=== PATIENT | male | born 2005 | race Caucasian/White ===

== ENCOUNTER → 2023-06-26 | Outpatient (REF) | payer OTHER, SELFPAY | LOC: DHSLP | PROVIDERS: ATTENDING PHYSICIAN Internal Medicine Critical Care Medicine; FAMILY PHYSICIAN Pediatrics | DX: G47.33 Obstructive sleep apnea (adult) (pediatric) (principal) | CPT/HCPCS: 95800 ==

== ENCOUNTER 2023-07-30 12:23 | Emergency (ER) | payer OTHER, SELFPAY ==
[2023-07-30] VITALS (24 sets, daily range): BP systolic 81–189; BP diastolic 41–117; BMI 18.2
[2023-07-30 12:56] LABS: % Basophils 0.5 % (0-2); % Eosinophils 5.6 % (0-6); % Immature Granulocytes 0.4 % (0-0.5); % Lymphocytes 25.9 % (20.5-51.1); % Monocytes 5.8 % (1.7-9.3); % Neutrophils 61.8 % (42.2-75.2); Absolute Eosinophils 0.5 10^3/uL (0-0.7); Absolute Lymphocytes 2.1 10^3/uL (1.2-3.4); Absolute Monocytes 0.5 10^3/uL (0.1-0.6); Absolute Neutrophils 5.1 10^3/uL (1.4-6.5); Hematocrit 35.9 % (39.0-52.0); Hemoglobin 11.6 g/dL (13.0-18.0); Mean Corp Hgb Conc. 32.3 g/dL (33.0-37.0); Mean Corpuscular Hgb 27.2 pg (27.0-31.0); Mean Corpuscular Volume 84.3 fL (80.0-94.0); Mean Platelet Volume 8.1 fL (7.4-10.4); Nucleated Red Blood Cells % 0 % (-); Platelet Count 310 10^3/uL (130-400); Red Blood Cell Count 4.26 10^6/uL (4.70-6.10); Red Cell Dist. Width 18.6 % (11.5-14.5); White Blood Cell Count 8.3 10^3/uL (4.8-10.8)
[2023-07-30 13:17] LABS: ALT (SGPT) 18 U/L (0-50); AST (SGOT) 34 U/L (17-59); Albumin 4.7 g/dl (3.5-5.0); Alkaline Phosphatase 77 U/L (38-126); Blood Urea Nitrogen 15 mg/dl (9-20); Carbon Dioxide 31 mmol/L (22-30); Chloride 96 mmol/L (98-107); Estimated Creatinine Clearance 79 ml/min; Glucose 104 mg/dl (70-99); Potassium 4.5 mmol/L (3.5-5.1); Sodium 136 mmol/L (135-145); Total Bilirubin 0.4 mg/dl (0.2-1.3); Total Protein 8.9 g/dl (6.3-8.2); eGFR > 60.00
[2023-07-30 13:28] LABS: Troponin I < 0.012 ng/ml
[2023-07-30] MEDS: TRANDATE 5 MG IV (13:51)
[2023-07-30] MEDS: ATIVAN 2 MG IV ×2 (14:17→14:20)
--- NOTE | 2023-07-30 14:54 | EDRN ---
14:15 Pt's dad out of room to let staff know pt began seizing, Dr. Yanez at bedside. 14:17 2mg Ativan administered per verbal order. Nonrebreather placed. Pts O2 sating between 72-86%. Pt stopped seizing grunting noted. Dr. Yanez doing jaw
thrust.
14:17 Pt began seizing again
14:20 2mg ativan administered per verbal order from Dr. Yanez
14:21 Pts BP continues to be high. 10mg Labetalol administered per verbal order.
14:40 Set up for intubation. Respiratory at bedside
14:35 50mg propofol administered
14:36 50mg rocuronium administered.
14:37 Pt intubated successfully. 8 tube 22@lip right side + color change
--- NOTE | 2023-07-30 15:00 | ED.GENMED ---
History of Present Illness
General
Chief Complaint: Blood Pressure Problem
Source: patient and family
Exam Limitations: none
Time Seen by Provider: 07/30/23 13:34
Nursing documentation reviewed up to this point in time: agreed with
Travel History
Have you had any contact with someone who has COVID-19?: No
Do you have any symptoms of coronavirus? Fever > 100 degrees, chills, cough, shortness of breath, sore throat, loss of taste or smell, muscle aches, or headache?: No
History of Present Illness
History of Present Illness:
17-year-old male presents emergency department complaining of elevated blood pressure, and sharp pain in his chest. This time he denies any pain. He reports a headache on the top of his head. He denies any blurry vision. He is worried he might
have a seizure. He was seen at his commodity specialist and sent to the emergency department due to his elevated blood.
Past History
Past History
ED Past Medical History: Asthma, GERD, Seizures, Other (sabas dz) and Other
ED Past Surgical History: None
Social History
Tobacco: Non-smoker
Alcohol: None
Drug: None
Personal: Single
Review of Systems
Review of Systems
Allergies reviewed?: Yes
All Other Systems: Not applicable
Constitutional: Reports no symptoms; Denies fever
EENT: Reports no symptoms
Respiratory: Reports no symptoms
Cardiac: Reports no symptoms
ABD/GI: Reports no symptoms
: Reports no symptoms
Musculoskeletal: Reports no symptoms
Skin: Reports no symptoms
Neurological: Reports headache
Endocrine: Reports no symptoms
Hematologic/Lymphatic: Reports no symptoms
Psychiatric: Reports no symptoms
Phy Exam
Physical Exam
Physical Exam:
Physical Exam
General: Appears uncomfortable, blood pressure 185/105
Neck: supple. no meningeal signs. normal posterior pharynx
Heart: s1/s2 regular rate and rhythm, no murmur. equal radial
pulses.
HEENT: Pupils equal round reactive to light, EOMI
Lungs: no acute respiratory distress. clear bilaterally
Abdomen: normal bowel sounds. not tender. no CVAT
Neuro: alert and oriented. no focal neurological deficits cranial nerves II through XII intact
Skin: no rash
Psychiatric: well kept. interactive and cooperative
Extremities: no edema. no calf tenderness. negative homans. good distal pulses
Course
Orders/Labs/Results
Orders:
Orders
07/30/23 12:24
Rocuronium [place] [Rocuronium] 50 mg .ROUTE .STK-MED ONE
07/30/23 12:30
Electrocardiogram (*1) Urgent
Reason for Study: Chest Pain
EKG- Treatment ONCE
07/30/23 12:42
Complete Blood Count/With Diff Urgent
Comprehensive Metabolic Panel Urgent
Troponin I Urgent
07/30/23 13:39
Lorazepam [Ativan] 2 mg .ROUTE .STK-MED ONE
07/30/23 13:46
Labetalol HCl [Trandate] 5 mg IV NOW STA
07/30/23 13:49
CT Head W/o Iv Contrast Urgent
Comment:
Reason For Exam: headache, hypertension
07/30/23 14:17
Lorazepam [Ativan] 2 mg IV NOW STA
07/30/23 14:20
Lorazepam [Ativan] 2 mg .ROUTE .STK-MED ONE
Lorazepam [Ativan] 2 mg IV NOW STA
07/30/23 14:27
Propofol [Diprivan] 20 ml .ROUTE .STK-MED
07/30/23 14:34
Propofol 1,000,000 Mcg/100 ml [Diprivan] 1,000,000 mcg in 100 ml .ROUTE .STK-MED
07/30/23 14:39
Fentanyl Citrate/Pf [Sublimaze] 100 mcg .ROUTE .STK-MED ONE
07/30/23 14:51
CR Chest Portable - 1 View Urgent
Comment:
Reason For Exam: post intubation
Reason Study Needs to be Portable: Patient Unstable
07/30/23 14:59
Keppra (Levetiracetam) [S] Urgent
Abnormal Lab Results
07/30/23
12:42
RBC 4.26 L 10^6/uL
(4.70-6.10)
Hgb 11.6 L g/dL
(13.0-18.0)
Hct 35.9 L %
(39.0-52.0)
MCHC 32.3 L g/dL
(33.0-37.0)
RDW 18.6 H %
(11.5-14.5)
Chloride 96 L mmol/L
(98-107)
Carbon Dioxide 31 H mmol/L
(22-30)
Glucose 104 H mg/dl
(70-99)
Total Protein 8.9 H g/dl
(6.3-8.2)
07/30/23 12:42
07/30/23 12:42
Vital Signs
Initial and Last Documented VS:
Initial Vital Signs
Temp Pulse Resp BP Pulse Ox
98.2 F 77 20 177/102 98
07/30/23 12:26 07/30/23 12:26 07/30/23 12:26 07/30/23 12:26 07/30/23 12:26
Last Documented Vital Signs
Temp Pulse Resp BP Pulse Ox
98.2 F 88 18 151/104 100
07/30/23 12:26 07/30/23 16:00 07/30/23 16:00 07/30/23 16:00 07/30/23 16:00
Procedures
Intubations
Procedure completed by: Renata
Method of Intubation: glidescope
Tube size (cm): 8.0
Placement confirmed by: auscutation, CXR, capnography and direct visualization
Breath sounds after intubation: equal
Intubation complications: no complications
MDM/Problems Addressed
Differential Diagnosis Includes:
Respiratory failure, status epilepticus, intracranial hemorrhage, hypertensive emergency
MDM/Problems Addressed:
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 He was intubated after having 2 seizures in the ED lasting 30 seconds to 1
minute. Postictal he was not protecting his airway. He was intubated without incident, blood pressure did drop to 80/40, improved after IV fluids. Parents present and agree with plan to transfer to [facility]. Call placed to [facility] for transfer.
Chronic conditions affecting care: Neurological disorder (Epilepsy, Alexanders disease)
Acute Exacerbation and/or Progression of Chronic Illness: Neurological disorder (Epilepsy, Alexanders disease)
*Pulse Oximetry
Patient hypoxic: no
*EKG
Interpreted by ED Provider?: Yes
EKG Intrepretation Date: 07/30/23
EKG Intrepretation Time: 12:35
Interpretation: abnormal
Comparison EKG: no comparison EKG present
Heart Rate: 65
Rate: normal
Rhythm: sinus
Braham: normal axis
Interval: normal interval
QRS Pattern: left vent hypertrophy
Ischemia: no ischemia
*Oyster Opener Interpretation
Rate: tachycardiac
Interpretation: abnormal
Heart Rate: 125
Rhythm: sinus tachycardia
*Critical Care Note
Total Time (30-74mins, 75-104mins- exclusive of procedures): 60
comment:
Critical care statement: A total of 60 minutes of critical care time was provided for this patient. This includes management of unstable vital signs, evaluation of the patient at bedside, reviewing the patient's pertinent medical records, discussion
with consultants, review of old EKGs and review of pertinent medical records. This time with separate from time utilized to perform the aforementioned documented procedures
Patient Management
Social determinants of health affecting care: Living situation and Strong social support
Discussion with other providers: Immigration Law Specialist (Pediatrics at PICU at [facility])
Escalation/DeEscalation of care consider admission/obs:
Admit/transfer indicated
ED Attending Note
-
Portions of this chart may have been created with voice recognition software.� Occasional wrong word or��sound alike� substitutions may have occurred due to the inherent limitations of voice recognition software.
Discharge Plan
Departure
Patient Disposition: Pediatric Hospital
Date of Disposition: 07/30/23
Time of Disposition: 15:01
Patient with high blood pressure during this ER visit?: Yes
Condition: Fair
Discharge Problem:
Seizure, Hypertensive emergency, Respiratory failure, Sabas's disease
Prescriptions:
No Action
cholecalciferol (vitamin D3) [Vitamin D3] 25 mcg (1,000 unit) Tablet
25 mcg PO DAILY
multivitamin Tablet
1 tab PO DAILY
sertraline 100 mg tablet
100 mg PO DAILY
Rx Instructions:
taken w/ 50mg + 25mg = 175mg
omeprazole 40 mg capsule,delayed release(DR/EC)
80 mg PO DAILY
ferrous sulfate 325 mg (65 mg iron) Tablet
325 mg PO DAILY
sertraline 25 mg tablet
25 mg PO DAILY
Rx Instructions:
taken w/ 50mg + 100mg = 175mg
sertraline 50 mg tablet
50 mg PO DAILY
Rx Instructions:
taken w/ 100mg + 25mg = 175mg
Gemtesa 75 mg Tablet
75 mg PO DAILY
Vitamin B
1 tab PO DAILY
divalproex 250 mg Tablet,Delayed Release (Dr/Ec)
750 mg PO BID Qty: 120 0RF
Hospital Transfer
Other hospital: [facility]
I certify that the patient requires transfer: Yes
Discussed case with accepting physician: Rudy
Reason for transfer: higher level of care and specialties available
Interventions
Interventions:
*Risk Screen - Suicide Last Done: 07/30/23 12:26
*Neglect/Abuse Screening Last Done: 07/30/23 12:26
ED- Fall Risk Assessment Last Done: 07/30/23 14:05
*ED COVID-19 Vaccine History Last Done: 07/30/23 12:26
*Nursing Disposition Last Done: 07/30/23 16:18
ED- Cardiac Assessment Last Done: 07/30/23 14:05
ED- Neurological Assessment Last Done: 07/30/23 14:05
ED- Pulmonary Assessment Last Done: 07/30/23 14:05
Discharge Date and Time
Discharge Date/Time: 07/30/23 16:24
== END 2023-07-30 16:24 | disposition designated cancer center or children's hospital (05) ==
LOC: EMR 12:23
PROVIDERS: EMERGENCY PHYSICIAN Emergency Medicine
DX: R56.9 Unspecified convulsions (principal); I16.1 Hypertensive emergency; G00-G99 Diseases of the nervous system; J96.90 Respiratory failure, unspecified, unspecified whether with hypoxia or hypercapnia
CPT/HCPCS: 99291; 31500; 96374; 96375; 70450; 71045; 80053; 84484; 85025; 93005

== ENCOUNTER 2023-08-05 06:20 | Outpatient (RCR) | payer OTHER, SELFPAY | END 2023-08-05 23:59 | disposition home or self-care (01) | LOC: ROT 06:20 | PROVIDERS: ATTENDING PHYSICIAN Pediatrics; FAMILY PHYSICIAN Pediatrics | DX: G31.89 Other specified degenerative diseases of nervous system (principal); Z73.6 Limitation of activities due to disability | CPT/HCPCS: 97163; 97167 ==

== ENCOUNTER 2023-09-07 15:14 | Outpatient (RCR) | payer OTHER, SELFPAY | END 2023-09-07 23:59 | disposition home or self-care (01) | LOC: ROT 15:14 | PROVIDERS: ATTENDING PHYSICIAN Pediatrics; FAMILY PHYSICIAN Pediatrics | DX: G00-G99 Diseases of the nervous system (principal); Z73.6 Limitation of activities due to disability | CPT/HCPCS: 97110; 97112; 97140; 97530; 97535 ==

== ENCOUNTER 2023-10-01 15:12 | Outpatient (RCR) | payer OTHER, SELFPAY | END 2023-10-06 10:26 | disposition home or self-care (01) | LOC: ROT 15:12 | PROVIDERS: ATTENDING PHYSICIAN Pediatrics; FAMILY PHYSICIAN Pediatrics | DX: G00-G99 Diseases of the nervous system (principal); Z73.6 Limitation of activities due to disability | CPT/HCPCS: 97010; 97110; 97112; 97530; 97535 ==

== ENCOUNTER → 2023-11-09 14:02 | Outpatient (REF) | payer OTHER, SELFPAY | LOC: HWRAD 14:02 | PROVIDERS: ATTENDING PHYSICIAN Urology; FAMILY PHYSICIAN Pediatrics | DX: N13.70 Vesicoureteral-reflux, unspecified (principal); N31.9 Neuromuscular dysfunction of bladder, unspecified; R33.9 Retention of urine, unspecified; N39.0 Urinary tract infection, site not specified; R27.8 Other lack of coordination | CPT/HCPCS: 76775 ==

== ENCOUNTER 2023-11-27 16:32 | Emergency (ER) | payer OTHER, SELFPAY ==
[2023-11-27 16:34] VITALS: BP 103/63
--- NOTE | 2023-11-27 17:20 | ED.SKININJ ---
HPI-Injury
General
Chief Complaint: Skin Problem
Source: patient and family (Father)
Exam Limitations: none
Time Seen by Provider: 11/27/23 17:19
Nursing documentation reviewed up to this point in time: agreed with
History of Present Illness-Injury
Initial Injury comments:
18-year-old male with history of epilepsy, Alexanders disease, asthma, GERD, daily nicotine/THC vaping, presents with father at bedside for blisters on his feet.
Patient states about 10 days ago he noted a blister on the arch of his right foot, it bubbled up and 2 to 3 days ago as he was crawling on the floor it caught on something and opened up and yellowish fluid drained. Since then the area has dried up
and the skin around it is tough and hardened.
3 days ago a similar blister showed up on the arch of the left foot that has since opened up and drained and is now dried and also has surrounding sick cough and skin.
He also has wounds on the dorsal aspect of the right foot toes 3, 4 and 5. They were initially blisters that opened up.
Patient has Sabas disease and has diminished sensation in his feet so no significant pain. He also states he frequently crawls up and down the steps to strengthen his arms his feet basically dragging behind him. He admits to doing this
frequently without any socks or other protection for his feet.
Past History
Past History
ED Past Medical History: Asthma, GERD, Seizures, Other (sabas dz) and Other
ED Past Surgical History: None
Social History
Tobacco: Non-smoker
Alcohol: None
Drug: None
Personal: Single
Review of Systems
Review of Systems
Allergies reviewed?: Yes
All Other Systems: ROS reviewed and negative except as documented in HPI and ROS
Constitutional: Denies fever
Musculoskeletal: Reports other (Thin lower extremities from muscle wasting.)
Skin: Reports other (Open wound dorsal 3/4/5 toes right foot. Healing blisters with surrounding thickened skin insteps of both feet. Multiple old scabs about the ankles and the feet from crawling. )
Neurological: Reports other (Diminished sensation in both feet from Sabas disease)
Phy Exam
Physical Exam
Physical Exam:
GENERAL: No acute distress. A&Ox3.
CONSTITUTIONAL: Afebrile.
EYES: PERRL, conjunctivae normal
Neck: Supple
ENMT: moist mucus membranes, Pharynx nl
RESPIRATORY: Regular respirations, nonlabored, lungs clear.
CARDIOVASCULAR: Regular rate and rhythm, no murmurs, no rubs.
GI: Soft, nontender, normal BS
MUSCULOSKELETAL: Moves with ease. Well perfused.
SKIN: Warm, dry, pink, left foot with a 2.5 cm healed abrasion on the instep of his foot with surrounding thickened tannish-brown skin. No redness. Right foot toes 3, 4, 5 have deep clean abrasions on the dorsal aspects from broken blisters, there
is no significant swelling, the toes have normal color and brisk capillary refill. There is no surrounding redness or warmth. The instep of the right foot, similar to the instep of the left foot but not as large an area has thickened darker
discolored skin surrounding a well-healed blister. There are numerous small well-healed black scabs about the ankles and the from his crawling.
PSYCH: Normal mood and affect. Well kept, interactive and appropriate
NEUROLOGIC: Awake, alert and oriented. No focal neurological deficits
Course
Vital Signs
Initial and Last Documented VS:
Initial Vital Signs
Temp Pulse Resp BP Pulse Ox
98.9 F 127 16 103/63 96
11/27/23 16:34 11/27/23 16:34 11/27/23 16:34 11/27/23 16:34 11/27/23 16:34
Last Documented Vital Signs
Temp Pulse Resp BP Pulse Ox
98.9 F 127 16 103/63 96
11/27/23 16:34 11/27/23 16:34 11/27/23 16:34 11/27/23 16:34 11/27/23 16:34
MDM/Problems Addressed
Differential Diagnosis Includes:
blisters, abrasions from shearing injury
Cellulitis
MDM/Problems Addressed:
18-year-old male with history of epilepsy, Alexanders disease, asthma, GERD, daily nicotine/THC vaping, presents with father at bedside for blisters on his feet.
Patient states about 10 days ago he noted a blister on the arch of his right foot, it bubbled up and 2 to 3 days ago as he was crawling on the floor it caught on something and opened up and yellowish fluid drained. Since then the area has dried up
and the skin around it is tough and hardened.
3 days ago a similar blister showed up on the arch of the left foot that has since opened up and drained and is now dried and also has surrounding sick cough and skin.
He also has wounds on the dorsal aspect of the right foot toes 3, 4 and 5. They were initially blisters that opened up.
Patient has Sabas disease and has diminished sensation in his feet so no significant pain. He also states he frequently crawls up and down the steps to strengthen his arms his feet basically dragging behind him. He admits to doing this
frequently without any socks or other protection for his feet.
The wounds on his toes are consistent with blisters and abrasions from shearing as he crawls on the floor. Wound care reviewed for these.
The insteps are consistent with lichenified skin surrounding old abrasions/blisters
Pt is at risk for skin damage of lower extremities, specifically feet and ankles as they drag along the floor when he crawls, especially in bare feet.
Wounds cleansed, ATB ointment, nonstick and gauze dressings applied
No cellulitis. No indication for antibiotics at this time.
Wound care discussed. Will f/u with PCP if not much improved in next 2 weeks
Reviewed return symptoms. Stressed skin protection of feet and ankles with crawling
Dad and pt comfortable with this
*Critical Care Note
Total Time (30-74mins, 75-104mins- exclusive of procedures): Not Applicable
ED Attending Note
-
Portions of this chart may have been created with voice recognition software.� Occasional wrong word or��sound alike� substitutions may have occurred due to the inherent limitations of voice recognition software.
Discharge Plan
Departure
Patient Disposition: Home (Routine Discharge)
Date of Disposition: 11/27/23
Time of Disposition: 18:17
Patient with high blood pressure during this ER visit?: No
Condition: Good
Discharge Problem:
Abrasion of multiple toes, Lichen planus
Instructions: Wound Care (DC), Lichen sclerosus, Abrasions ED
Prescriptions:
No Action
cholecalciferol (vitamin D3) [Vitamin D3] 25 mcg (1,000 unit) Tablet
25 mcg PO DAILY
multivitamin Tablet
1 tab PO DAILY
sertraline 100 mg tablet
100 mg PO DAILY
Rx Instructions:
taken w/ 50mg + 25mg = 175mg
omeprazole 40 mg capsule,delayed release(DR/EC)
80 mg PO DAILY
ferrous sulfate 325 mg (65 mg iron) Tablet
325 mg PO DAILY
sertraline 25 mg tablet
25 mg PO DAILY
Rx Instructions:
taken w/ 50mg + 100mg = 175mg
sertraline 50 mg tablet
50 mg PO DAILY
Rx Instructions:
taken w/ 100mg + 25mg = 175mg
Gemtesa 75 mg Tablet
75 mg PO DAILY
Vitamin B
1 tab PO DAILY
divalproex 250 mg Tablet,Delayed Release (Dr/Ec)
750 mg PO BID Qty: 120 0RF
Referrals:
Piter Rosales DO [Family Provider] - As needed
Sarah Dominguez MD [Consulting Staff] - As needed
Activity Restrictions/Additional Instructions:
As we discussed, the toe wounds seem to be from crawling and scraping/shearing the skin on the top of your toes causing blisters, then blisters breaking.
cleanse the wounds daily with soap and water, allow to dry well. Apply antibiotic ointment, non stick dressings and gauze wrap. Do this daily until well healed (about 2-3 weeks).
Avoid crawling on floors for 2-3 weeks then ONLY with protective socks, shoes, slippers or other covering.
The thickened skin on the insteps of your feet may take weeks/months to resolve or may become chronic.
See your monotype keyboard operator if areas do not continue to improve with above care.
Seek medical care if the areas look like they are becoming infected such as becoming red, more swollen, more painful, red streaks up the foot or you develop fever or feeling sicker in any way.
Interventions
Interventions:
*Risk Screen - Suicide Last Done: 11/27/23 17:04
*General Assessment Last Done: 11/27/23 16:34
*Neglect/Abuse Screening Last Done: 11/27/23 17:04
ED- Fall Risk Assessment Last Done: 11/27/23 17:04
*ED COVID-19 Vaccine History Last Done: 11/27/23 16:34
*Nursing Disposition Last Done: 11/27/23 18:39
ED-Skin Assessment Last Done: 11/27/23 17:04
Discharge Date and Time
Discharge Date/Time: 11/27/23 19:02
Print Language: PAKISTANI
== END 2023-11-27 19:02 | disposition home or self-care (01) ==
LOC: EMR 16:32
PROVIDERS: EMERGENCY PHYSICIAN Emergency Medicine; FAMILY PHYSICIAN Pediatrics
DX: L43.9 Lichen planus, unspecified (principal); S90.414A Abrasion, right lesser toe(s), initial encounter; X58.XXXA Exposure to other specified factors, initial encounter; G00-G99 Diseases of the nervous system; G40.909 Epilepsy, unspecified, not intractable, without status epilepticus; J45.909 Unspecified asthma, uncomplicated; K21.9 Gastro-esophageal reflux disease without esophagitis
CPT/HCPCS: 99282

== ENCOUNTER → 2024-02-01 15:50 | Outpatient (REF) | payer OTHER, SELFPAY | LOC: RAD 15:50 | PROVIDERS: ATTENDING PHYSICIAN Internal Medicine; FAMILY PHYSICIAN Pediatrics | DX: K59.02 Outlet dysfunction constipation (principal); R10.84 Generalized abdominal pain | CPT/HCPCS: 74019 ==

== ENCOUNTER 2024-03-09 11:56 | Outpatient (RCR) | payer OTHER, SELFPAY | END 2024-03-09 23:59 | disposition home or self-care (01) | LOC: RPT 11:56 | PROVIDERS: ATTENDING PHYSICIAN Internal Medicine; FAMILY PHYSICIAN Pediatrics | DX: K59.02 Outlet dysfunction constipation (principal); M62.838 Other muscle spasm; Z73.6 Limitation of activities due to disability | CPT/HCPCS: 97140; 97163; 97530 ==

== ENCOUNTER 2024-03-11 12:52 | Outpatient (RCR) | payer OTHER, SELFPAY | END 2024-03-11 23:59 | disposition home or self-care (01) | LOC: RPT 12:52 | PROVIDERS: ATTENDING PHYSICIAN Internal Medicine; FAMILY PHYSICIAN Pediatrics | DX: K59.02 Outlet dysfunction constipation (principal); M62.838 Other muscle spasm; Z73.6 Limitation of activities due to disability | CPT/HCPCS: 97014; 97112; 97140; 97530 ==

== ENCOUNTER 2024-05-02 13:56 | Outpatient (RCR) | payer OTHER, SELFPAY | END 2024-05-05 15:48 | disposition home or self-care (01) | LOC: RPT 13:56 | PROVIDERS: ATTENDING PHYSICIAN Internal Medicine; FAMILY PHYSICIAN Pediatrics | DX: K59.02 Outlet dysfunction constipation (principal); M62.838 Other muscle spasm; Z73.6 Limitation of activities due to disability | CPT/HCPCS: 97014; 97112; 97140; 97530 ==

== ENCOUNTER → 2024-05-24 14:45 | Outpatient (REF) | payer OTHER, SELFPAY | LOC: RAD 14:45 | PROVIDERS: FAMILY PHYSICIAN Pediatrics | DX: M41.44 Neuromuscular scoliosis, thoracic region (principal); M40.04 Postural kyphosis, thoracic region | CPT/HCPCS: 72082 ==

== ENCOUNTER 2024-07-06 13:09 | Outpatient (RCR) | payer OTHER, SELFPAY | END 2024-07-06 23:59 | disposition home or self-care (01) | LOC: RPT 13:09 | PROVIDERS: ATTENDING PHYSICIAN Pediatrics; FAMILY PHYSICIAN Pediatrics | DX: G00-G99 Diseases of the nervous system (principal); Z73.6 Limitation of activities due to disability; R29.818 Other symptoms and signs involving the nervous system; R26.89 Other abnormalities of gait and mobility; M25.552 Pain in left hip | CPT/HCPCS: 97010; 97110; 97112; 97140; 97163; 97167; 97530; 97535 ==

== ENCOUNTER 2024-08-08 13:07 | Outpatient (RCR) | payer OTHER, SELFPAY | END 2024-08-08 23:59 | disposition home or self-care (01) | LOC: RPT 13:07 | PROVIDERS: ATTENDING PHYSICIAN Pediatrics; FAMILY PHYSICIAN Pediatrics | DX: G00-G99 Diseases of the nervous system (principal); R29.818 Other symptoms and signs involving the nervous system; Z73.6 Limitation of activities due to disability; R26.89 Other abnormalities of gait and mobility; M25.552 Pain in left hip | CPT/HCPCS: 97110; 97112; 97140; 97530; 97535 ==

== ENCOUNTER 2024-08-19 13:02 | Outpatient (RCR) | payer OTHER, SELFPAY | END 2024-08-26 08:03 | disposition home or self-care (01) | LOC: RPT 13:02 | PROVIDERS: ATTENDING PHYSICIAN Pediatrics; FAMILY PHYSICIAN Pediatrics | DX: G00-G99 Diseases of the nervous system (principal); R29.818 Other symptoms and signs involving the nervous system; R26.89 Other abnormalities of gait and mobility; M25.552 Pain in left hip; Z73.6 Limitation of activities due to disability | CPT/HCPCS: 97110; 97112; 97140; 97530; 97535 ==

== ENCOUNTER → 2024-08-22 12:29 | Outpatient (REF) | payer OTHER, SELFPAY | LOC: WOUND 12:29 | PROVIDERS: ATTENDING PHYSICIAN Surgery | DX: T24.231A Burn of second degree of right lower leg, initial encounter (principal); G00-G99 Diseases of the nervous system; X11.0XXA Contact with hot water in bath or tub, initial encounter; Y93.E1 Activity, personal bathing and showering | CPT/HCPCS: 99203 ==

== ENCOUNTER → 2024-08-30 10:46 | Outpatient (REF) | payer OTHER, SELFPAY | LOC: WOUND 10:46 | PROVIDERS: ATTENDING PHYSICIAN Surgery | DX: T24.231A Burn of second degree of right lower leg, initial encounter (principal); G00-G99 Diseases of the nervous system; X11.0XXA Contact with hot water in bath or tub, initial encounter; Y93.E1 Activity, personal bathing and showering | CPT/HCPCS: 99213 ==

== ENCOUNTER 2024-09-06 14:54 | Inpatient (IN) | payer OTHER, SELFPAY ==
[2024-09-06] VITALS (28 sets, daily range): BP systolic 100–131; BP diastolic 58–87; PULSE 133; BMI 21.4
--- NOTE | 2024-09-06 10:47 | ED.GENMED ---
History of Present Illness
General
Chief Complaint: Seizure
Time Seen by Provider: 09/06/24 10:46
History of Present Illness
History of Present Illness:
TIME OF INITIAL ENCOUNTER: 10:51am
HPI:
The patient was diagnosed with Sabas disease around age 12. He used to be in college but had to drop out. He has now primarily in a wheelchair. Yesterday, he had a procedure at [facility] related to subluxation of the left hip. The procedure went
well and there were no complications yesterday. However, today, the patient had a presumed seizure as the patient was found to be in a postictal state by family. He came in here by ambulance. He has also found to be hypoxic with sats of 78% with
a good waveform. Today, he also had coffee-ground emesis.
EXAM:
GENERAL: The patient appears somewhat generally weak
HEENT: Moist oral mucosa
CARDIOVASCULAR: No murmurs, normal heart rate, regular rhythm, No chest wall tenderness
PULMONARY: No respiratory distress, breath sounds are clear and equal
ABDOMEN: Soft with no peritoneal signs, no tenderness
NEUROLOGIC: Decreased strength all extremities, no coordination deficits
PSYCHIATRIC: Appropriate mental status, normal insight and judgement, appears to slightly postictal
EXTREMITIES: Decreased active range of motion of both lower extremities which is chronic
SKIN: No rash, no lesions
NUMBER AND COMPLEXITY OF PROBLEMS ADDRESSED AT THE ENCOUNTER
� Chronic conditions affecting care: Alexanders disease, seizures
� Acute Exacerbation and/or Progression of Chronic Illness: This is an acute problem
� Differential Diagnosis includes: Breakthrough seizure, upper GI bleed, anemia, aspiration pneumonitis, aspiration pneumonia
AMOUNT AND/OR COMPLEXITY OF DATA TO BE REVIEWED AND ANALYZED
� I performed an independent evaluation of and my interpretation is:
EKG: Sinus 127, sinus arrhythmia,
CT:
X-rays: Chest x-ray shows severe scoliosis similar to image from July 2023, no evidence of pneumonia
Laboratory Studies: White count 15.2, hemoglobin 15.0, Cr 1.6, K 6.1
Other:
� Review of other/old records: I reviewed OT records related to Sabas disease
� Clinical information was obtained by an independent historian: I spoke to the father at bedside
� Prescriptions/Medications Considered but not given:
� Further testing considered but not performed:
RISK OF COMPLICATIONS AND/OR MORBIDITY OR MORTALITY OF PATIENT MANAGEMENT
� Social determinants of health affecting care: No longer attends college, resides at home with family
� Discussion with other providers: Hospitalist, Dr. Diaz for admission
� Escalation of care including admission/observation vs risk of discharge considered:
PROBLEM LIST:
#1 Sabas disease with breakthrough seizure. This is the first seizure in about a year. He states that he is now taking Lamictal 150 mg twice daily. Call placed to his neurologist, Dr. She Decker. He did not take his Lamictal yet today. I
have ordered Lamictal 150 mg orally.
#2 Hypoxia�this could be related to aspiration pneumonitis. His room air sats were as low as 78% and initially he had periods where he was less responsive but currently as of 11:10 AM, is awake and alert. No sign of pneumonia on imaging.
#3 Persistent tachycardia�he was given IV fluids EKG otherwise unremarkable
#4 Presumed upper GI bleed given the report of coffee-ground emesis, patient has briskly heme positive stool�I have ordered Protonix IV
#5 KAVYA w/ Cr 1.6, added CK and gave additional liter of saline w/ K of 6.1
ANY OTHER UPDATES:
Past History
Past History
ED Past Medical History: Asthma, GERD, Seizures, Other (sabas dz) and Other
ED Past Surgical History: None
Social History
Tobacco: Non-smoker
Alcohol: None
Drug: None
Personal: Single
Phy Exam
Physical Exam
Physical Exam:
See HPI
Course
Orders/Labs/Results
Orders:
Orders
09/06/24 10:56
Portable Chest Xray [CR Chest Portable - 1 View] Urgent
Comment:
Reason For Exam: seizure, hypoxia
Reason Study Needs to be Portable: Patient Unstable
09/06/24 10:57
EKG [Electrocardiogram (*1)] Urgent
Reason for Study: Tachycardia
EKG- Treatment ONCE
09/06/24 11:00
Complete Blood Count/With Diff Urgent
Comprehensive Metabolic Panel Urgent
Creatine Phosphokinase Urgent
Comment: ADD ON
09/06/24 11:02
0.9% Sodium Chloride 1000 ml [Nss] 1,000 ml IV BOLUS
Lamotrigine [Lamictal] 150 mg PO NOW STA
09/06/24 11:09
Pantoprazole [Protonix IV] 80 mg IV NOW STA
09/06/24 11:38
Add On- LAB Urgent
Tests Added?: CK
Sodium Zirconium Cyclosilicate [Lokelma] 10 gram PO NOW STA
09/06/24 11:48
Type And Crossmatch [Type+Screen] Urgent
0.9% Sodium Chloride 1000 ml [Nss] 1,000 ml IV BOLUS
09/06/24 11:56
ABO2 Urgent
BBK Wristband Number:
Associate notified that ABO2 has been ordered: [id number]
Date: 09/06/24
Time: 11:56
Developmental Training Counselor ID: [id number]
09/06/24 12:01
Urinalysis Reflex To Culture Urgent
09/06/24 12:06
Lactic Acid Q4H
Comment: CANCEL 2nd LACTIC ACID IF 1st LACTIC ACID IS LESS THAN 2
Blood Culture Q30M
JESSICA Source: Blood/Venous
Specimen Description:
09/06/24 12:12
Blood Culture Q30M
JESSICA Source: Blood/Venous
Specimen Description:
09/06/24 13:48
NEUROLOGY CONSULT Routine
Consulting Provider: Ash Chery
Was physician already notified: Yes
Reason for consult: acute seizure activity
09/06/24 13:49
GASTROINTESTINAL CONSULT Routine
Consulting Provider: Brandan Boyle
Was physician already notified: Yes
Reason for consult: coffee ground emesis
09/06/24 13:50
0.9% Sodium Chloride 1000 ml [Nss] 1,000 ml IV BOLUS
09/06/24 13:51
Admit/Transfer Patient As Directed
Co-Sign Provider:
Level of Care: Inpatient admission
Assign to:: IMU- Intermediate Care
Physician / Group: Joe
Diagnosis: acute seizure activity, UGIB
Reason for Hospitalization: acute seizure activity, UGIB
Expected length of stay greater than two midnights?: Yes
ELOS- Estimated Length of Stay in days: 3
I certify the patient meets the requirements for IP care: Yes
PRN Pain Medication Management As Directed
May give lesser potent ordered pain med per pt: Yes
preference::
Protocol:: Medication orders for pain may be administered in a
manner that supports deferring to patient preference
when the pt is:
- Requesting an ordered lesser potent pain medication.
Least to most potent pain medications are defined
as: acetaminophen < NSAID < tramadol < opioids
(morphine, oxycodone, hydromorphone).
- Requesting a lesser dose of the same medication IF
ORDERED.
- Requesting a less intrusive route of administration
if both routes are prescribed by the provider (PO <
IV).
09/06/24 13:54
Code Status As Directed
Resuscitation Status: Full Code
09/06/24 14:10
EEG Routine Urgent
Reason for Exam: seizure
09/06/24 14:12
Add On- LAB Routine
Tests Added?: lamotrigine level
09/06/24 Dinner
NPO
Allow oral meds: Yes
Allow clear liquids: Sips of Clears
NPO with Ice Chips: No
0.9% Sodium Chloride 1000 ml [Nss] 1,000 ml IV 120 mls/hr
Pantoprazole 80 mg/100 ml Nss [Protonix] 80 mg in 100 ml IV Q10H
Abnormal Lab Results
09/06/24
11:00
WBC 15.2 H 10^3/uL
(4.8-10.8)
MCV 95.2 H fL
(80.0-94.0)
MCHC 31.3 L g/dL
(33.0-37.0)
Abs Immat Gran (auto) 0.1 H 10^3/uL
(0-0.05)
Absolute Neuts (auto) 12.3 H 10^3/uL
(1.4-6.5)
Absolute Lymphs (auto) 0.8 L 10^3/uL
(1.2-3.4)
Absolute Monos (auto) 1.9 H 10^3/uL
(0.1-0.6)
Immature Gran % 0.6 H %
(0-0.5)
Neutrophils % 81.3 H %
(42.2-75.2)
Lymphocytes % 5.2 L %
(20.5-51.1)
Monocytes % 12.6 H %
(1.7-9.3)
Potassium 6.1 H* mmol/L
(3.5-5.1)
Carbon Dioxide 34 H mmol/L
(22-30)
BUN 45 H mg/dl
(9-20)
Creatinine 1.6 H mg/dL
(0.7-1.3)
Creatine Kinase 43 L U/L
(55-170)
09/06/24 11:00
09/06/24 11:00
Vital Signs
Initial and Last Documented VS:
Initial Vital Signs
Pulse Pulse Ox
130 78
09/06/24 10:43 09/06/24 10:43
Last Documented Vital Signs
Temp Pulse Resp BP Pulse Ox
36.8 C 119 13 124/74 96
09/06/24 11:12 09/06/24 15:30 09/06/24 15:30 09/06/24 15:20 09/06/24 15:30
*Critical Care Note
Total Time (30-74mins, 75-104mins- exclusive of procedures): Not Applicable
ED Attending Note
-
Portions of this chart may have been created with voice recognition software.� Occasional wrong word or��sound alike� substitutions may have occurred due to the inherent limitations of voice recognition software.
Discharge Plan
Departure
Patient Disposition: Admit
Date of Disposition: 09/06/24
Time of Disposition: 13:47
Presentation/result/management discussed w/ accepting MD/DO: Hospitalist
Discharge Problem:
KAVYA (acute kidney injury)
Interventions
Interventions:
*Risk Screen - Suicide Last Done: 09/06/24 11:12
*General Assessment Last Done: 09/06/24 11:12
*Neglect/Abuse Screening Last Done: 09/06/24 11:39
*ED- Fall Risk Assessment Last Done: 09/06/24 11:39
*ED COVID-19 Vaccine History Last Done: 09/06/24 11:39
ED- Cardiac Assessment Last Done: 09/06/24 11:39
ED- Neurological Assessment Last Done: 09/06/24 11:39
ED- Pulmonary Assessment Last Done: 09/06/24 11:39
[2024-09-06 11:15] LABS: % Basophils 0.3 % (0-2); % Immature Granulocytes 0.6 % (0-0.5); % Lymphocytes 5.2 % (20.5-51.1); % Monocytes 12.6 % (1.7-9.3); % Neutrophils 81.3 % (42.2-75.2); Absolute Immature Granulocytes 0.1 10^3/uL (0-0.05); Absolute Lymphocytes 0.8 10^3/uL (1.2-3.4); Absolute Monocytes 1.9 10^3/uL (0.1-0.6); Absolute Neutrophils 12.3 10^3/uL (1.4-6.5); Mean Corp Hgb Conc. 31.3 g/dL (33.0-37.0); Mean Corpuscular Hgb 29.8 pg (27.0-31.0); Mean Corpuscular Volume 95.2 fL (80.0-94.0); Mean Platelet Volume 8.5 fL (7.4-10.4); Nucleated Red Blood Cells % 0 % (-); Platelet Count 228 10^3/uL (130-400); Red Blood Cell Count 5.04 10^6/uL (4.70-6.10); White Blood Cell Count 15.2 10^3/uL (4.8-10.8)
[2024-09-06] MEDS: NSS 1000 IV ×3 (11:30→18:01)
[2024-09-06] MEDS: PROTONIX IV 80 MG IV (11:30)
[2024-09-06 11:38] LABS: ALT (SGPT) 20 U/L (0-50); AST (SGOT) 22 U/L (17-59); Albumin 3.9 g/dl (3.5-5.0); Alkaline Phosphatase 125 U/L (38-126); Blood Urea Nitrogen 45 mg/dl (9-20); Calcium 9.1 mg/dl (8.4-10.2); Carbon Dioxide 34 mmol/L (22-30); Chloride 98 mmol/L (98-107); Estimated Creatinine Clearance 72 ml/min; Glucose 98 mg/dl (70-99); Potassium 6.1 mmol/L (3.5-5.1); Sodium 143 mmol/L (135-145); Total Bilirubin 0.7 mg/dl (0.2-1.3); Total Protein 7.2 g/dl (6.3-8.2); eGFR > 60.00
[2024-09-06] MEDS: LAMICTAL 150 MG PO (11:44)
[2024-09-06] MEDS: LOKELMA 10 GRAM PO (11:46)
[2024-09-06 12:40] LABS: Lactic Acid 1.2 mmol/L (0.7-2.0)
[2024-09-06 13:10] LABS: Creatine Phosphokinase 43 U/L (55-170)
--- NOTE | 2024-09-06 13:57 | CON.NEURO ---
Addendum entered and electronically signed by Ash Chery MD 09/07/24 11:37:
Studies reviewed.
I have personally examined the patient. I reviewed and agree with the EXECUTIVE COMMUNICATIONS MANAGER's Note.
My addenda:
Awake, interactive. No acute distress.
Speech mildly dysarthric.
Follows 2-step requests w/o difficulty. No tremor.
Extra-ocular movements with nystagmus in all directions but not in primary gaze
Facial movements full and symmetric. Hearing intact to normal conversational volume.
Spontaneously moves upper extremities without issue, minimal ability to lift lower extremities off bed bilaterally slightly worse on the right than left with increased tone diffusely in lower extremities.
Neck: full ROM.
Chest: no dyspnea
Heart: no JVD
Ext: (-) Clubbing, (-) Cyanosis, (-) Edema
IMPRESSIONS/RECOMMENDATIONS:
Abrupt onset of recurrent change in mental status with a prior history of both Sabas disease and recurrent seizures usually followed by [facility]
Advance lamotrigine from 150 mg twice a day to dosing of 200 mg twice a day
Workup for metabolic etiologies for the patient's symptomatology
Seizure precautions
Consider alternative medication for the use of baclofen to reduce spasticity
Check lamotrigine level
D/W patient / family
Will continue to follow pending results.
Original Note:
Documented by User: Claudia Kennedy NP 09/06/24 14:54
Neuro Assessment/Plan
Assessment
The patient is a 18 year old male with PMH significant for Sabas Disease/leukodystrophy and Epilepsy who presents to ED on 09/06/2024 in the setting of breakthrough seizure.
Plan
Impression
1. Epilepsy with breakthrough seizure in the setting of metabolic disturbance
2. Sabas's disease/leukodystrophy
3. KAVYA with hyperkalemia
-Obtain Lamotrigine level
-Increase Lamotrigine to 200 mg twice daily
-Seizure precautions
-Follow up with Neurologist Dr. Decker outpatient
-All questions encouraged and answered
-Plan reviewed with patient and family
Consultation
Order
Date of Consultation: 09/06/24
Requesting Provider: Dr. Veto Diaz
Reason for Consult: breakthrough seizure
Subjective/Objective
Subjective Data
Date of Service: September 06, 2024
History of Present Illness:
The patient is a 18 year old male with PMH significant for Sabas Disease/leukodystrophy and Epilepsy who presents to ED on 09/06/2024 in the setting of breakthrough seizure. The patient was diagnosed with Sabas disease around age 12. He
has now primarily in a wheelchair and does participate in PT/OT. Yesterday, he had a procedure at [facility] related to subluxation of the left hip. The procedure went well and there were no complications yesterday. Last night before bedtime per mother
was seemingly normal. At 9 am this morning his mother could not arouse him and he was found to be incontinent of bowels with brown emesis on sheets. There was no tongue/cheek laceration. He was back to baseline at 10 am. On arrival to ED, was found
to be hypoxic with sats of 78% with a good waveform. Patient is currently awake, alert and oriented. Prior antiepileptic medications include Depakote and Keppra which were discontinued due to side effects. He is currently taking Lamotrigine 150 mg
twice daily. He states his last seizure occurred 1 year ago. Usual seizure presentation with generalized tonic-clonic movement. He follows with Dr. Decker. He denies recent illness or infection, states he is compliant with his medications. Denies
issues with sleep.
Objective Data
Vital Signs
Temp Pulse Resp BP Pulse Ox
98.3 F 133 14 116/70 97
09/06/24 11:12 09/06/24 11:12 09/06/24 11:12 09/06/24 11:12 09/06/24 11:39
Lab Results
09/06/24 11:00
09/06/24 11:00
Sodium 143 mmol/L (135-145) 09/06/24 11:00
Potassium 6.1 mmol/L (3.5-5.1) H* 09/06/24 11:00
BUN 45 mg/dl (9-20) H 09/06/24 11:00
Glucose 98 mg/dl (70-99) 09/06/24 11:00
Calcium 9.1 mg/dl (8.4-10.2) 09/06/24 11:00
Patient Allergies
cat dander Allergy (Verified 09/06/24 11:12)
Unknown
dog dander Allergy (Verified 09/06/24 11:12)
Unknown
grass pollen Allergy (Verified 09/06/24 11:12)
Unknown
horse dander Allergy (Verified 09/06/24 11:12)
Unknown
tree and shrub pollen Allergy (Verified 09/06/24 11:12)
Unknown
Review of Systems
-
History Source: Patient and Family
Constitutional: No Symptoms
EENT: No Symptoms Reported
Respiratory: No Symptoms
Cardiac: No Symptoms
Abdomen/GI: Incontinence of Stool
Genitourinary: No Symptoms
Musculoskeletal: No Symptoms
Neuro: No Symptoms
Physical Exam
-
General: No Apparent Distress and Comfortable
HEENT: Normocephalic and Atraumatic
Neck: Full Range of Motion
Respiratory: Other (on O2)
Cardiac: No JVD
Extremities: No Clubbing, No Cyanosis and No Edema
Psych: Intact Judgement/Insight
Extended Neurological Exam
Mood & Affect: Mood Unremarkable
Attention Span & Concentration: Awake, Alert, Interactive and No Difficulty with 2 Step Request
Memory: Able to Recall
Tremor: Hand Tremor Absent
Speech: Dysarthric
Cranial Nerve II: Left Eye: Visual Shrestha Intact
Cranial Nerve II: Right Eye: Visual Shrestha Intact
Cranial Nerves III, IV, : Extraocular Movement: Nystagmus with Extreme Gaze to Left
Cranial Nerve V: Facial Sensation: Facial Sensation Unremarkable to Cold
Cranial Nerve VII: Facial Symmetry: Normal Facial Symmetry
Cranial Nerve VIII: Hearing: Unremarkable Hearing to Normal Conversational Volume
Cranial Nerves IX, X: Palate Movement: Palate Elevation Symmetric
Cranial Nerve XII: Tongue Protusion: Midline
Muscle Strength, Overall: Reduced Bilaterally (to lower extremities)
Muscle Bulk & Tone: Increased Tone (lower extremities)
Pronator Drift: No Drift in Upper Extremities
Deep Tendon Reflexes: Absent Throughout
Cold Sensation: Reduced Moderately Distally (lower extremities)
Vibration Sensation: Unremarkable
Coordination: [id number] Testing Unremarkable
Gait & Station: Other (deferred)
Medications
-
Active Medications
Generic Name Dose Route Start Last Admin
Trade Name Freq PRN Reason Stop Dose Admin
Sodium Chloride 1,000 mls @ 1,000 mls/hr 09/06/24 13:50
Nss IV 09/06/24 14:49
BOLUS ONE
Home Medications
�Medication �Instructions �Recorded
cholecalciferol (vitamin D3) 25 25 mcg PO DAILY Supplement 11/11/20
mcg (1,000 unit) tablet (Vitamin
D3)
ferrous sulfate 325 mg (65 mg 325 mg PO DAILY Supplement 02/26/23
iron) tablet
omeprazole 40 mg capsule,delayed 80 mg PO DAILY GERD 02/26/23
release
vibegron 75 mg tablet (Gemtesa) 75 mg PO DAILY OVERACTIVE BLADDER 02/26/23
vitamin B complex 1 tab PO DAILY Supplement ##0 02/26/23
ascorbic acid (vitamin C) 500 mg 500 mg PO DAILY 09/06/24
tablet (Vitamin C)
cranberry extract 200 mg capsule 72 mg PO DAILY 09/06/24
(Ellura)
fluticasone propionate 50 1 spray intranasal DAILYPRN PRN 09/06/24
mcg/actuation nasal allergies
spray,suspension
inulin 1.7 gram chewable tablet 1.7 g PO DAILY 09/06/24
(Fiber Gummies)
lamotrigine 150 mg tablet 150 mg PO BID 09/06/24
(Lamictal)
methenamine hippurate 1 gram tablet 1 g PO BID 09/06/24
mirtazapine 15 mg tablet 30 mg PO HS 09/06/24
multivitamin with minerals-folic 1 tab PO DAILY 09/06/24
acid 80 mcg chewable tablet
nicotine (polacrilex) 2 mg buccal 2 mg buccal Q2HPRN PRN stop smoking 09/06/24
lozenge
Past History
Past History
ED Past Medical History: Asthma, GERD, Seizures, Other (sabas dz) and Other
ED Past Surgical History: None
Family/Social History
Tobacco: Non-smoker
Alcohol: None
Drug: None
Personal: Single

Documented by User: Ash Chery MD 09/06/24 15:06
Subjective/Objective
Subjective Data
Date of Service: September 06, 2024
History of Present Illness:
The patient is a 18 year old male with PMH significant for Sabas Disease/leukodystrophy and Epilepsy who presents to ED on 09/06/2024 in the setting of breakthrough seizure. The patient was diagnosed with Sabas disease around age 12. He
has now primarily in a wheelchair and does participate in PT/OT. Yesterday, he had a procedure at [facility] related to subluxation of the left hip. The procedure went well and there were no complications yesterday. Last night before bedtime per mother
was seemingly normal.
At 9 am this morning his mother could not arouse him and he was found to be incontinent of bowels with brown emesis on sheets. There was no tongue/cheek laceration. He routinely self catheterizes and therefore there is no bladder dysfunction at the
time of the incident. He was back to baseline at 10 am.
On arrival to ED, was found to be hypoxic with sats of 78% with a good waveform.
Prior antiepileptic medications include Depakote and Keppra which were discontinued due to side effects. He states his last seizure occurred 1 year ago. Usual seizure presentation with generalized tonic-clonic movements and at times have been
associated with atypical events including procedures. He follows with Dr. Decker, a pediatric neurologist at [facility]. He denies recent illness or infection, states he is compliant with his medications. Denies issues with
sleep.
Physical Exam
-
General: Wearing Oxygen
Extended Neurological Exam
Memory: Reduced (For correct prior holiday order)
Cranial Nerve II: Left Eye: Pupillary Size Unremarkable
Cranial Nerve II: Right Eye: Pupillary Size Unremarkable
Cranial Nerves III, IV, : Extraocular Movement: Nystagmus with Extreme Gaze to Left and Nystagmus with Extreme Gaze to Right
Cranial Nerve V: Facial Sensation: Facial Sensation Unremarkable to Cold
Data Reviewed
-
Labs: Ordered
Reviewed with: Physician, Patient and Family
Old Records: Summarized
--- NOTE | 2024-09-06 14:01 | W.PN.UPDATE ---
Addendum entered and electronically signed by Veto Diaz MD 09/06/24 14:22:
KAVYA with hyperkalemia:
-aggressive IVFs
-trend Cr/K (next lab draw 1700)
Original Note:
Update Note
Progress Note Update
I personally performed a history and physical exam of the patient and discussed management with the resident. I reviewed the resident's note and agree with the documented findings and plan of care HPI/CC.
18-year-old male who presents with a chief complaint of seizure activity. Yesterday the patient was seen at [facility] for left hip subluxation. Afterwards he was in his usual state of health. This morning his mother tried to wake him up but he was
unresponsive. His eyelids were fluttering. She noticed bright red blood and coffee-ground emesis on his shoulder. He slowly came to and was postictal. He was brought to the ER for this reason. He has not missed any of his home medications.
ER tx: 2L NS, Protonix 80mg IV x 1, 10g Lokelma
116/70, 133, 14, 90.3 �F, 97% 2L NC O2 (was 73% RA)
Gen: NAD, Awake and alert, appears chronically ill
Eyes: EOMI, PERRLA, no scleral icterus.
ENMT: no evidence of oral trauma
Neck: supple.
CV: tachy, reg rhythm, +S1/S2, no m/r/g.
Resp: CTAB, no rales, wheezes, or rhonchi.
Abd: +BS, soft, NT, ND
Skin: No rashes.
Neuro: CN 2-12 intact
Psych: Normal mood and affect.
Lab Results
09/06/24 09/06/24 09/06/24
11:00 12:06 16:15
WBC 15.2 H
RBC 5.04
Hgb 15.0
Hct 48.0
MCV 95.2 H
MCH 29.8
MCHC 31.3 L
RDW 13.0
Plt Count 228
MPV 8.5
Abs Immat Gran (auto) 0.1 H
Absolute Neuts (auto) 12.3 H
Absolute Lymphs (auto) 0.8 L
Absolute Monos (auto) 1.9 H
Absolute Eos (auto) 0.0
Absolute Basos (auto) 0.0
Immature Gran % 0.6 H
Neutrophils % 81.3 H
Lymphocytes % 5.2 L
Monocytes % 12.6 H
Eosinophils % 0.0
Basophils % 0.3
Nucleated RBC % 0
Sodium 143
Potassium 6.1 H*
Chloride 98
Carbon Dioxide 34 H
BUN 45 H
Creatinine 1.6 H
Estimated Creat Clear 72
eGFR > 60.00
Glucose 98
Lactic Acid 1.2 Cancelled
Calcium 9.1
Total Bilirubin 0.7
AST 22
ALT 20
Alkaline Phosphatase 125
Creatine Kinase 43 L
Total Protein 7.2
Albumin 3.9
CXR:
1. Mild elevation of the right hemidiaphragm.
2. Moderate right convex curvature of the lower thoracic spine.
Acute seizure activity:
-underlying seizure disorder
-cont Lamictal
-neuro c/s placed, case discussed with Dr. Chery. Will need additional AED +/- increase in Lamictal dose
-check EEG or Ceribell
-Ativan 1mg IV Q2HPRN for seizure activity. Should pt have seizure covering physician should be called as pt may need more than 1mg Ativan (depending on response)
Coffee ground emesis:
-no evidence of oral trauma on exam related to seizure activity
-cont Protonix 40mg IV Q12H
-trend H/H Q6H
-IVFs, NPO except meds
-c/s GI
Other problems:
Sabas disease/leukodystrophy
Neurogenic bladder
Solitary kidney
Pt's father updated at bedside.
FULL/SCDs/IMU
--- NOTE | 2024-09-06 14:21 | HPS.HSE ---
Family Physician
-
Family Physician: Obed Irvin MD
Chief Complaint
-
Seizure
History of Present Illness
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 Yesterday, he had a procedure at [facility] related to subluxation of left hip. The procedure went well and there
were no complications yesterday. This morning at 9 AM when his mom went to wake him up he was unresponsive, they did not witness active seizure episodes however there was loss of bowel movement, brown emesis on the sheets. His previous seizure
episode was a year ago and it was in a similar fashion. If he denies smoking, he used to weigh, currently on he is slowly gained consciousness with postictal. No tongue laceration. He is currently on Lamictal, no changes in his dose. He sees
neurologist at [facility]. Prior to this he was on Keppra and Depakote.
Medical History
Past Medical History
Past Medical History: Reports Asthma, GERD and Seizures (History of Sabas disease)
Past Surgical History: Reports None
Social History
Tobacco: Non-smoker
Alcohol: None
Drug: None
Personal: Single
Living: With Family
Family History
Family History: Not pertinent
Allergies / Home Medications
Allergies reflects when Allergies were last updated in [employer].
Home Medications with original date entered in [employer]
Allergy/Medication List:
Allergies
Allergy/AdvReac Type Severity Reaction Status Date / Time
cat dander Allergy Unknown Verified 09/06/24 11:12
dog dander Allergy Unknown Verified 09/06/24 11:12
grass pollen Allergy Unknown Verified 09/06/24 11:12
horse dander Allergy Unknown Verified 09/06/24 11:12
tree and shrub pollen Allergy Unknown Verified 09/06/24 11:12
Home Medications
cholecalciferol (vitamin D3) 25 mcg (1,000 unit) tablet (Vitamin D3) 25 mcg PO DAILY Supplement 11/11/20
ferrous sulfate 325 mg (65 mg iron) tablet 325 mg PO DAILY Supplement 02/26/23
omeprazole 40 mg capsule,delayed release 80 mg PO DAILY GERD 02/26/23
vibegron 75 mg tablet (Gemtesa) 75 mg PO DAILY OVERACTIVE BLADDER 02/26/23
vitamin B complex 1 tab PO DAILY Supplement ##0 02/26/23
ascorbic acid (vitamin C) 500 mg tablet (Vitamin C) 500 mg PO DAILY 09/06/24
cranberry extract 200 mg capsule (Ellura) 72 mg PO DAILY 09/06/24
fluticasone propionate 50 mcg/actuation nasal spray,suspension 1 spray intranasal DAILYPRN PRN allergies 09/06/24
inulin 1.7 gram chewable tablet (Fiber Gummies) 1.7 g PO DAILY 09/06/24
lamotrigine 150 mg tablet (Lamictal) 150 mg PO BID 09/06/24
methenamine hippurate 1 gram tablet 1 g PO BID 09/06/24
mirtazapine 15 mg tablet 30 mg PO HS 09/06/24
multivitamin with minerals-folic acid 80 mcg chewable tablet 1 tab PO DAILY 09/06/24
nicotine (polacrilex) 2 mg buccal lozenge 2 mg buccal Q2HPRN PRN stop smoking 09/06/24
Review of Systems
-
A 12 point ROS was completed and negative except as noted: Yes
Physical Exam
Vital Signs
Vital Signs
Temp Pulse Resp BP Pulse Ox
98.3 F 133 14 116/70 97
09/06/24 11:12 09/06/24 11:12 09/06/24 11:12 09/06/24 11:12 09/06/24 11:39
Physical Exam
General: Comfortable and Conversant
HEENT: NormoCephalic and Other (dry mucous membrane )
Respiratory: Clear; No Wheezes, Rales or Rhonchi
Cardiac: S1/S2 and Regular Rhythm
GI: Soft, Non Tender and Non Distended
Skin: Warm and Dry
Neuro: AO x 3, No Sensory Deficits and Other (areflexia, 1/5 motor strength bilaterally)
Psych: Calm
Laboratory Results
-
09/06/24 11:00
09/06/24 11:00
Laboratory Results
Lactic Acid Cancelled 09/06/24 16:15
Total Bilirubin 0.7 mg/dl (0.2-1.3) 09/06/24 11:00
AST 22 U/L (17-59) 09/06/24 11:00
ALT 20 U/L (0-50) 09/06/24 11:00
Alkaline Phosphatase 125 U/L (38-126) 09/06/24 11:00
Data Reviewed
-
Lab Data: Labs Reviewed by me and Discussed with Physician
Impression/Plan
-
IMPRESSION:
Acute seizure activity
Coffee-ground emesis
KAVYA with hyperkalemia
Acute hypoxic respiratory insufficiency
History of Sabas disease
Neurogenic bladder
Solitary kidney
PLAN:
Acute seizure activity
Admit to IMU
Previous seizures year ago
No tongue laceration, AOX3
Currently on Lamictal, continue
Consult placed, Dr. Russo saw the patient, plan to increase the dose of Lamictal to 200 mg twice daily
Check EEG
Ativan 1 mg IV Q2PRN for seizure activity.
Check Lamictal levels
Coffee-ground emesis
Start Protonix 40 mg IV every 12
Change H&H
IV fluids, NPO except meds
PPI gtt
Consult GI
KAVYA with hyperkalemia
Aggressive IV fluids
Trend creatinine/K (next lab draw 1700)
Acute hypoxic respiratory insufficiency
On 1 L O2
Wean as able
History of Sabas disease
Sees neurology at [facility]
Continue home medications
Neurogenic bladder
Self cath
Solitary kidney
since
Full code
N.p.o.
SCD
--- NOTE | 2024-09-06 14:48 | CON.GI ---
Addendum entered and electronically signed by Karina James MD 09/06/24 20:09:
I saw and examined the patient.
The M[employer]IA AUTHORING SPECIALIST or PA's note was reviewed and I agree with the note.
Comment:
Pt is a 18 y/o man with Sabas syndrome, constipation, PFD, seizure d/o, neurogenic bladder who had a procedure at [facility] with anesthesia. This morning he was found to have had a seizure, large bm, emesis of brown material. Currently with no
pain. Mother states he has been having a lot of loose bms since
abd: soft, nontender
tongue with small abraison
impression
PFD
coffee ground emesis
seizures
constipation
loose stool
tachcardia
plan:
follow hgb
PPI
xray in am
if diarrhea check stool studies
hold on EGD unless clear UGIB
Original Note:
Consultation
-
Date/Time Consultation Requested: 09/06/24 1400
Date/Time Consultation Performed: 09/06/24 1425
Requesting Provider: Dr. Diaz
Performing Provider: Dr. James/RALF Cardoso
Reason for Consultation: coffee ground emesis
Medical History
Chief Complaint / HPI
Chief Complaint: seizure, vomiting
History of Present Illness:
18-year-old male with past medical history of Sabas disease, seizures, obstructive sleep apnea, GERD, depression, anxiety, neurogenic bladder, pelvic floor dysfunction, UTI, solitary kidney, interstitial cystitis, chronic constipation,
subluxation of left hip status post procedure yesterday requiring general anesthesia to pop it back into place as well as injection to the area requiring him to be n.p.o. since Thursday evening, this surgery was later in the afternoon yesterday and he
did not eat until after 6 PM last evening. The patient ate chicken nuggets for dinner. He went to bed without any nausea or abdominal discomfort. The patient's mother went to wake him up at 8 AM as this is sleeping in late for him and she
realized that he was more somnolent than usual with snoring and there was vomitus on the pillow. The patient was brought to the emergency room for further evaluation. The patient usually sleeps with a CPAP and this was not in place. He was
postictal and he was brought to the emergency room for further evaluation. The patient is conversant at the present time. He states that last night in the middle the night he recalls being somewhat nauseous. He believes he recalls vomiting on the
pillow. He does not recall the seizure event. He does have a tiny laceration on the top of his tongue. White count is 15.2, hemoglobin 15.0 (baseline for him is the 9-11 range. Stool was checked in the emergency room is positive for occult
blood. There was some red blood that I witnessed mixed in with brown stool. The patient usually has a bowel movement every 3 days to 7 days. This requires enemas. Patient is mostly wheelchair-bound at the present time. The patient's mother
denies any recent fevers, chills, nausea, vomiting, abdominal pain, melena or hematochezia. The patient himself at the current time denies any nausea or abdominal discomfort. He does not utilize any NSAIDs secondary to a solitary kidney. He is on
oral iron. He is also on omeprazole daily. Sodium is 143, potassium is 6.1, CO2 is 34, BUN 45, creatinine 1.6, lactic acid 1.2, CK 43.
Past Medical History
Past Medical History: Other (Sabas disease, seizures, obstructive sleep apnea on CPAP, GERD, depression, anxiety, neurogenic bladder, pelvic floor dysfunction, UTI, solitary kidney, interstitial cystitis, chronic constipation, subluxation of
left hip status post procedure)
Past Surgical History: Other (Chest tube)
Social History
Tobacco: Vaping (Former vaping, quit)
Alcohol: None
Drug: None
Living: With Family
Family History
Family History: Other (No family history of gastrointestinal malignancy or IBD)
Allergies / Home Medications
Allergy/AdvReac Type Severity Reaction Status Date / Time
cat dander Allergy Unknown Verified 09/06/24 11:12
dog dander Allergy Unknown Verified 09/06/24 11:12
grass pollen Allergy Unknown Verified 09/06/24 11:12
horse dander Allergy Unknown Verified 09/06/24 11:12
tree and shrub pollen Allergy Unknown Verified 09/06/24 11:12
�Medication �Instructions �Recorded
cholecalciferol (vitamin D3) 25 25 mcg PO DAILY Supplement 11/11/20
mcg (1,000 unit) tablet (Vitamin
D3)
ferrous sulfate 325 mg (65 mg 325 mg PO DAILY Supplement 02/26/23
iron) tablet
omeprazole 40 mg capsule,delayed 80 mg PO DAILY GERD 02/26/23
release
vibegron 75 mg tablet (Gemtesa) 75 mg PO DAILY OVERACTIVE BLADDER 02/26/23
vitamin B complex 1 tab PO DAILY Supplement ##0 02/26/23
ascorbic acid (vitamin C) 500 mg 500 mg PO DAILY 09/06/24
tablet (Vitamin C)
cranberry extract 200 mg capsule 72 mg PO DAILY 09/06/24
(Ellura)
fluticasone propionate 50 1 spray intranasal DAILYPRN PRN 09/06/24
mcg/actuation nasal allergies
spray,suspension
inulin 1.7 gram chewable tablet 1.7 g PO DAILY 09/06/24
(Fiber Gummies)
lamotrigine 150 mg tablet 150 mg PO BID 09/06/24
(Lamictal)
methenamine hippurate 1 gram tablet 1 g PO BID 09/06/24
mirtazapine 15 mg tablet 30 mg PO HS 09/06/24
multivitamin with minerals-folic 1 tab PO DAILY 09/06/24
acid 80 mcg chewable tablet
nicotine (polacrilex) 2 mg buccal 2 mg buccal Q2HPRN PRN stop smoking 09/06/24
lozenge
Review of Systems
-
All other systems: A 12 pt ROS was Negative except as stated above in HPI
Vital Signs
Temp Pulse Resp BP Pulse Ox
98.3 F 133 14 116/70 97
09/06/24 11:12 09/06/24 11:12 09/06/24 11:12 09/06/24 11:12 09/06/24 11:39
Physical Exam
Exam
General: No Apparent Distress
HEENT: Anicteric and Other (Small laceration top of tongue, no edema)
Respiratory: Clear (Anterior)
Cardiac: Regular Rhythm
GI: Soft, Non Tender, Non Distended and Normal Bowel Sounds
Rectal: Brown (Brown stool with few streaks of red within it. OB positive)
Skin: Warm and Dry
Neuro: Awake, Alert and Oriented
Psych: Calm
Results
WBC 15.2 10^3/uL (4.8-10.8) H 09/06/24 11:00
Hgb 15.0 g/dL (13.0-18.0) 09/06/24 11:00
Hct 48.0 % (39.0-52.0) 09/06/24 11:00
MCV 95.2 fL (80.0-94.0) H 09/06/24 11:00
Plt Count 228 10^3/uL (130-400) 09/06/24 11:00
Absolute Neuts (auto) 12.3 10^3/uL (1.4-6.5) H 09/06/24 11:00
Sodium 143 mmol/L (135-145) 09/06/24 11:00
Potassium 6.1 mmol/L (3.5-5.1) H* 09/06/24 11:00
Chloride 98 mmol/L (98-107) 09/06/24 11:00
Carbon Dioxide 34 mmol/L (22-30) H 09/06/24 11:00
BUN 45 mg/dl (9-20) H 09/06/24 11:00
Creatinine 1.6 mg/dL (0.7-1.3) H 09/06/24 11:00
Calcium 9.1 mg/dl (8.4-10.2) 09/06/24 11:00
Total Bilirubin 0.7 mg/dl (0.2-1.3) 09/06/24 11:00
AST 22 U/L (17-59) 09/06/24 11:00
ALT 20 U/L (0-50) 09/06/24 11:00
Alkaline Phosphatase 125 U/L (38-126) 09/06/24 11:00
Diagnostic Image Results:
Chest x-ray:
1. Mild elevation of the right hemidiaphragm.
2. Moderate right convex curvature of the lower thoracic spine.
Prior GI Procedures:
EGD: Never
Colonoscopy: Never
Assessment / Plan
-
18-year-old male with past medical history of Sabas disease, seizures, obstructive sleep apnea, GERD, depression, anxiety, neurogenic bladder, pelvic floor dysfunction, UTI, solitary kidney, interstitial cystitis, chronic constipation,
subluxation of left hip status post procedure yesterday requiring general anesthesia to pop it back into place as well as injection to the area requiring him to be n.p.o. since Thursday evening, this surgery was later in the afternoon yesterday and he
did not eat until after 6 PM last evening. The patient ate chicken nuggets for dinner. He went to bed without any nausea or abdominal discomfort. The patient's mother went to wake him up at 8 AM as this is sleeping in late for him and she
realized that he was more somnolent than usual with snoring and there was vomitus on the pillow. The patient was brought to the emergency room for further evaluation.Upon arrival the patient was hypoxic with sats at 78%.Currently the patient is
stable 97% without need for oxygen. Patient's stool was brown OB positive in the emergency room. When I saw him he had had a very large bowel movement that was brown with a couple streaks of red blood within it. He vaguely remembers vomiting in
the middle of the evening. He was intubated yesterday for procedure for left hip subluxation. He denies having any abdominal pain in the middle of the evening. He did seize and has a small laceration on the tip of his tongue. There was no red
blood on the pillow. He does have signs of dehydration. He was n.p.o. from Thursday until 6 PM yesterday. He had 1 meal at 6 PM and then went to bed. Currently hemoglobin 15.01 his baseline runs between hide nines to 11. He is tachycardic, BUN is
45, creatinine 1.6. He is on omeprazole daily. He denies any NSAID use with history of solitary kidney. He is on iron daily. At the present time he denies any nausea or abdominal discomfort.
Impression:
Vomiting, coffee gound
Blood within stool
Seizure
Dehydration, KAVYA with hyperkalemia
Constipation
Hx Sabas disease
Neurogenic bladder
Plan:
-Protonix gtt
-IVF per IM
-Trend Hgb, expect significant drop in Hgb as patient baseline is between high 9-11
-Transfuse if Hgb less then 7
-NPO except meds for now
-To consider EGD, will monitor progression
-Further recommendations to be forthcoming.
-
-
Thank you for consultation and allowing me to participate in the patient's care. Please call the refrigerated national truck driver GI physician during the after hours with any questions or concerns.
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
[2024-09-06 17:31] LABS: Urine Albumin 2+ (Neg - Trace); Urine Bilirubin Negative (Negative); Urine Character Clear (Clear); Urine Color Yellow; Urine Glucose Negative (Negative); Urine Ketone Negative (Negative); Urine Leukocyte 3+ (Negative); Urine Nitrite Negative (Negative); Urine Occult Blood 1+ (Negative); Urine Specific Gravity 1.015 (<1.030); Urine Urobilinogen Negative (Neg - 1+)
[2024-09-06 17:54] LABS: Urine Bacteria Few (Negative); Urine Red Blood Cell 0-2 /HPF (0-2); Urine Urothelial Cell 0-2 /LPF (FEW); Urine White Cell >100 /HPF (0-5)
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
[2024-09-06 18:22] LABS: Hematocrit 41.2 % (39.0-52.0); Hemoglobin 13.3 g/dL (13.0-18.0)
[2024-09-06 18:42] LABS: Blood Urea Nitrogen 38 mg/dl (9-20); Calcium 8.7 mg/dl (8.4-10.2); Carbon Dioxide 32 mmol/L (22-30); Chloride 103 mmol/L (98-107); Estimated Creatinine Clearance 104 ml/min; Glucose 98 mg/dl (70-99); Potassium 5.8 mmol/L (3.5-5.1); Sodium 141 mmol/L (135-145); eGFR > 60.00
[2024-09-06] MEDS: LAMICTAL 200 MG PO (20:47)
[2024-09-06] MEDS: REMERON 30 MG PO (21:51)
[2024-09-06] MEDS: TYLENOL 650 MG PO (21:52)
[2024-09-06] MEDS: NSS (PRESERVATIVE FREE) 10 ML IV (23:43)
[2024-09-06] MEDS: PROTONIX IV 40 MG IV (23:43)
[2024-09-07] VITALS (14 sets, daily range): BP systolic 95–146; BP diastolic 55–89; PULSE 113–115; BMI 20.6
[2024-09-07 01:18] LABS: Hematocrit 42.4 % (39.0-52.0); Hemoglobin 13.5 g/dL (13.0-18.0)
[2024-09-07] MEDS: NSS 1000 IV ×3 (01:48→19:26)
[2024-09-07] MEDS: NON-FORMULARY ITEM 2 MG BUCCAL ×7 (04:07→22:32)
[2024-09-07 06:30] LABS: % Basophils 0.4 % (0-2); % Eosinophils 1.1 % (0-6); % Immature Granulocytes 0.2 % (0-0.5); % Monocytes 11.1 % (1.7-9.3); % Neutrophils 74.2 % (42.2-75.2); Absolute Eosinophils 0.1 10^3/uL (0-0.7); Absolute Lymphocytes 1.3 10^3/uL (1.2-3.4); Absolute Monocytes 1.1 10^3/uL (0.1-0.6); Absolute Neutrophils 7.5 10^3/uL (1.4-6.5); Hematocrit 40.7 % (39.0-52.0); Hemoglobin 12.6 g/dL (13.0-18.0); Mean Corpuscular Hgb 29.9 pg (27.0-31.0); Mean Corpuscular Volume 96.7 fL (80.0-94.0); Mean Platelet Volume 8.8 fL (7.4-10.4); Nucleated Red Blood Cells % 0 % (-); Platelet Count 167 10^3/uL (130-400); Red Blood Cell Count 4.21 10^6/uL (4.70-6.10); Red Cell Dist. Width 12.9 % (11.5-14.5)
[2024-09-07 06:45] LABS: Blood Urea Nitrogen 31 mg/dl (9-20); Calcium 8.7 mg/dl (8.4-10.2); Carbon Dioxide 31 mmol/L (22-30); Chloride 103 mmol/L (98-107); Estimated Creatinine Clearance 110 ml/min; Glucose 85 mg/dl (70-99); Potassium 5.5 mmol/L (3.5-5.1); Sodium 143 mmol/L (135-145); eGFR > 60.00
--- NOTE | 2024-09-07 07:46 | W.PN.HOSP.TC ---
Today's Communication/Plan
-
Stool cultures/blood cultures/urine culture pending
Abdomen x-ray
Check Lamictal level
Assessment / Plan
Assessment / Plan
IMPRESSION:
Acute seizure activity
Coffee-ground emesis
KAVYA with hyperkalemia
Acute hypoxic respiratory insufficiency
History of Sabas disease
Neurogenic bladder
Solitary kidney
PLAN:
Acute seizure activity
Admit to IMU
Previous seizures year ago
No tongue laceration, AOX3
Currently on Lamictal, continue
Consult placed, Dr. Russo saw the patient, plan to increase the dose of Lamictal to 200 mg twice daily
Check EEG
Ativan 1 mg IV Q2PRN for seizure activity.
Check Lamictal levels
Coffee-ground emesis
PPI gtt
Trend H&H
IV fluids, NPO except meds
Abdomen x-ray
EGD on hold for now unless clear UGIB
Appreciate GI input
Stool cultures/blood cultures/urine culture pending
KAVYA with hyperkalemia
Aggressive IV fluids
Trend creatinine/K (next lab draw 1700)
Acute hypoxic respiratory insufficiency
On 1 L O2
Wean as able
History of Sabas disease
Sees neurology at [facility]
Continue home medications
Neurogenic bladder
Self cath
Solitary kidney
since
Full code
N.p.o.
SCD
Anticipated Discharge: > 48 hours
Subjective/Interval History
-
Date of Service: September 07, 2024
No overnight events
Objective Data
-
Labs:
Laboratory Results
09/07/24 09/07/24 09/07/24
00:47 00:48 06:04
WBC Cancelled 10.0
Hgb Cancelled 13.5 12.6 L
Hct Cancelled 42.4 40.7
Plt Count Cancelled 167 D
Sodium 143
Potassium 5.5 H
Chloride 103
Carbon Dioxide 31 H
BUN 31 H
Creatinine 1.0
Glucose 85
Calcium 8.7
09/07/24
11:34
WBC
Hgb Pending
Hct Pending
Plt Count
Sodium
Potassium
Chloride
Carbon Dioxide
BUN
Creatinine
Glucose
Calcium
Vital Signs:
Vital Signs
Temp Pulse Resp BP Pulse Ox
98.6 F 116 18 135/78 96
09/07/24 03:18 09/07/24 07:15 09/07/24 07:15 09/07/24 06:00 09/07/24 07:15
I&O
09/06/24 09/07/24 09/08/24
06:59 06:59 06:59
Intake Total 1900 / 1900
Output Total 1250 / 1250
Balance 650 / 650
Review of Systems
-
All other systems: Reviewed and negative
Physical Exam
-
General: No Apparent Distress and Comfortable
HEENT: Normocephalic and Atraumatic
Respiratory: Clear to Auscultation
Cardiac: Regular Rhythm and S1/S2
GI: Nondistended
Musculoskeletal: No Edema
Neuro: AO x 3, No Sensory Deficits and Other
Data Reviewed
-
Labs: Labs Reviewed by me and Discussed with Physician
--- NOTE | 2024-09-07 08:33 | PTCARENOTE ---
Patient received from night warehouse manager. Patient resting comfortably in bed. AAO but a little drowsy, VSS. No events noted over night. No complaints of pain at this time. Patient was on CPAP but was off by change of shift. Patient can self cath, own
catheters in room. Patient ordered for an abdominal xray this AM, could have diet ordered pending. Call mcpherson in reach.
--- NOTE | 2024-09-07 09:26 | W.PN.UPDATE ---
Update Note
Progress Note Update
I saw and evaluated the patient. I reviewed the resident�s note and agree with findings and plan as documented in the resident�s note. Gen: NAD, Awake and alert, appears chronically ill
No seizure activity overnight. Patient states he is hungry.
Gen: NAD, Awake and alert, appears chronically ill
Eyes: EOMI, PERRLA, no scleral icterus.
Neck: supple.
CV: Remains tachy, reg rhythm, +S1/S2, no m/r/g.
Resp: Remains CTAB, no rales, wheezes, or rhonchi.
Abd: Remains +BS, soft, NT, ND
Skin: No rashes.
Neuro: CN 2-12 intact
Psych: Normal mood and affect.
CXR:
1. Mild elevation of the right hemidiaphragm.
2. Moderate right convex curvature of the lower thoracic spine.
Acute seizure activity:
-underlying seizure disorder
-Lamictal increased to 200mg BID, check Lamictal level
-neuro following
-check EEG
-Ativan 1mg IV Q2HPRN for seizure activity. Should pt have seizure covering physician should be called as pt may need more than 1mg Ativan (depending on response)
Coffee ground emesis:
-on further oral exam small tongue lac noted
-cont Protonix 40mg IV Q12H
-Hb stable compared to prior (Feb 2023, July 2023). Current drop likely dilutional.
-IVFs, NPO except meds
-GI following
- Check abdominal x-ray
KAVYA:
-with hyperkalemia, give 15g Kayexalate now
-KAVYA resolved with IVFs
Other problems:
Sabas disease/leukodystrophy
Neurogenic bladder
Solitary kidney
Pt's father updated at bedside.
FULL/SCDs/IMU
--- NOTE | 2024-09-07 09:27 | EEG.RPT ---
Electroencephalogram Report
Recording
Date of EE09/07/24
Type of EEG: Routine
Length of EEG recordin minutes
Done with Video Recording: Yes
Patient Status: Inpatient
Recording Conditions: Awake, Drowsy and Asleep
Hyperventilation Performed: No
Photic Stimulation Performed: Yes
Report
LESS THAN 1 HOUR EEG INTERPRETATION:
Unremarkable EEG for age
CLINICAL CORRELATION:
A normal EEG does not rule out a diagnosis of epilepsy. If clinical suspicion for seizure persists, a prolonged recording may be warranted with better evaluation of wakefulness as most of the study was performed in sleep.
Clinical correlation is advised.
METHODS:
A 21 channel digitized electroencephalogram (EEG) was performed using the 10/20 international system of electrode placement and one-lead of ECG recorded. The [employer] quantitative EEG system was utilized.
ELECTROENCEPHALOGRAPHER IMPRESSION(S):
Quality of study
Good
Background
There was an unremarkable anterior-posterior voltage gradient of alpha frequency.
With eye opening the background activity changed to a low voltage mixture of frequencies.
There were no significant asymmetries of background activity noted.
Sleep
Drowsiness present
Stage 1 present
Stage 2 present
Photic Stimulation
No activation
ECG
Normal sinus rhythm
[2024-09-07] MEDS: LAMICTAL 200 MG PO ×2 (09:37→19:50)
[2024-09-07] MEDS: NSS (PRESERVATIVE FREE) 10 ML IV ×2 (09:37→19:50)
[2024-09-07] MEDS: PROTONIX IV 40 MG IV ×2 (09:37→19:50)
[2024-09-07] MEDS: DETROL LA 4 MG PO (09:37)
[2024-09-07 10:16] LABS: Hematocrit 41.5 % (39.0-52.0); Hemoglobin 12.9 g/dL (13.0-18.0)
--- NOTE | 2024-09-07 10:18 | W.PN.GI.CBS2 ---
Today's Communication / Plan
-
PPI to po bid
Assessment / Plan
-
18-year-old male with past medical history of Sabas disease, seizures, obstructive sleep apnea, GERD, depression, anxiety, neurogenic bladder, pelvic floor dysfunction, UTI, solitary kidney, interstitial cystitis, chronic constipation,
subluxation of left hip status post procedure yesterday requiring general anesthesia to pop it back into place as well as injection to the area requiring him to be n.p.o. since Thursday evening, this surgery was later in the afternoon yesterday and he
did not eat until after 6 PM last evening. The patient ate chicken nuggets for dinner. He went to bed without any nausea or abdominal discomfort. The patient's mother went to wake him up at 8 AM as this is sleeping in late for him and she
realized that he was more somnolent than usual with snoring and there was vomitus on the pillow. The patient was brought to the emergency room for further evaluation.Upon arrival the patient was hypoxic with sats at 78%.Currently the patient is
stable 97% without need for oxygen. Patient's stool was brown OB positive in the emergency room. When I saw him he had had a very large bowel movement that was brown with a couple streaks of red blood within it. He vaguely remembers vomiting in
the middle of the evening. He was intubated yesterday for procedure for left hip subluxation. He denies having any abdominal pain in the middle of the evening. He did seize and has a small laceration on the tip of his tongue. There was no red
blood on the pillow. He does have signs of dehydration. He was n.p.o. from Thursday until 6 PM yesterday. He had 1 meal at 6 PM and then went to bed. Currently hemoglobin 15.01 his baseline runs between hide nines to 11. He is tachycardic, BUN is
45, creatinine 1.6. He is on omeprazole daily. He denies any NSAID use with history of solitary kidney. He is on iron daily. At the present time he denies any nausea or abdominal discomfort.
Impression:
Vomiting, coffee gound
Blood within stool
Seizure
Dehydration, KAVYA with hyperkalemia
Constipation
Hx Sabas disease
Neurogenic bladder
Plan:
change PPI to po bid, etiology of blood likely bitten tongue due to seizure; hgb stable
xray of abdomen just to evaluate stool burden
hgb stable
ok for diet
Subjective
Subjective
Date of Service: September 07, 2024
Pt hungry, no bleeding, did have large bm yesterday. he does have a hx of constipation
Objective
Data Reviewed
Laboratory Data:
Laboratory Results
09/07/24 10:02
09/07/24 06:04
Laboratory Results
Total Bilirubin 0.7 mg/dl (0.2-1.3) 09/06/24 11:00
AST 22 U/L (17-59) 09/06/24 11:00
ALT 20 U/L (0-50) 09/06/24 11:00
Alkaline Phosphatase 125 U/L (38-126) 09/06/24 11:00
Vital Signs and I&O:
Vital Signs
Temp Pulse Resp BP Pulse Ox
98.2 F 116 18 135/78 96
09/07/24 08:12 09/07/24 07:15 09/07/24 07:15 09/07/24 06:00 09/07/24 07:15
I&O
09/06/24 09/07/24 09/08/24
06:59 06:59 06:59
Intake Total 1900 / 1900
Output Total 1250 / 1250
Balance 650 / 650
Physical Exam
Physical Exam
GI: Soft, Non Distended and Non Tender
[2024-09-07] MEDS: KAYEXALATE SUSPENSION 15 GRAMS PO (11:29)
--- NOTE | 2024-09-07 14:40 | WOUNDNOTE ---
[facility] RN note: Patient admitted with acute seizures. UGIB. Patient lives with his parents.
See H&P for complete history.
PMH: Sabas disease, L hip procedure for subluxation, self catheterizes, solitary kidney.
Wound Location and type/assessment: Patient admitted with: Healed RLE burn. Skin dry. Coccyx slow to rajni dull red and intact.
Appetite: on regular diet.
Pressure redistribution devices in place: Centrella Edtrips air bed. Patient needs help turning.
Plan: Patient incontinent of large amount of mucous material from rectum. Demi care given. Protective silicone border foam applied RLE healed burn for protection by [facility] RN retail store assistant Esther. Air chair cushion given. Assisted THALIA Pina along with [facility]
RN retail store assistant with patient transfer onto stretcher for a test. Pillow under calves to off load heels.
Care plan to be updated, will sign off. Call if needed.
--- NOTE | 2024-09-07 14:40 | WOUNDNOTE ---
RIGHT LOWER LATERAL LEG
--- NOTE | 2024-09-07 14:42 | WOUNDNOTE ---
RIGHT LOWER LATERAL LEG
[2024-09-07] MEDS: LOPRESSOR 5 MG IV (15:00)
[2024-09-07] MEDS: REMERON 30 MG PO (20:00)
--- NOTE | 2024-09-07 20:36 | PTCARENOTE ---
Lamictal level sent prior to PM dose given. Mom at bedside, supportive of patient. Pt oriented x4, drowsy. eating a snack mom brought. no s/s of aspiration. pt straight cathed himself for 450cc clear yellow urine. incont of small BM. maryann hygiene
provided. denies any pain. ST on tele. seizure pads on bed rails. HOB 30 degrees. IVF continue per MAR. call mcpherson and tray table within reach. pt thankful for care.
--- NOTE | 2024-09-07 21:25 | CON.ORTHO ---
Consultation
-
Date/Time Consultation Requested: 07SEP2024 11:42
Date/Time Consultation Performed: 07SEP2024 12:15
Requesting Provider: Claudia Mendez
Performing Provider: Gil Wileks MD
Reason for Consultation: left hip subluxation
Consultation - Orthopedics
History
Mehdi is a 18-year-old male with known history of Sabas syndrome, seizure disorder, and bilateral hip dysplasia presenting with left hip subluxation. He states he has had many years of subluxing hip that is painful. As result of his hip is
most often held in a shortened and internally rotated position, which she states is very comfortable for him. Due to his underlying neurologic condition he has been wheelchair-bound for several years and does not ambulate. On August 28, 2024 he
underwent a procedure at [facility] with Dr. Mccord regarding his left dysplastic hip. Per Dr. Mccord's records the hip is subluxed at rest and is able to be reduced, but when pressure is relieved the hip subluxes again. This was confirmed via
manipulation under anesthesia and arthrogram in the operating room. A conversation was then held with the patient regarding the 2 treatment options for 80s hip: Either a periacetabular osteotomy to salvage the hip joint, or a resection arthroplasty
to decrease his pain. The patient and his family state they were considering options when 1 day prior to presentation, 1 day after the procedure, he was found in a pool of his own vomit and postictal and his bedroom. His parents immediately
brought him to [facility] where he was diagnosed as having a seizure. He also has some coffee-ground emesis and during the gastrointestinal workup an abdominal x-ray demonstrated a subluxed left hip. Orthopedics was consulted for this
issue. He denies any numbness or tingling in his left lower extremity, denies any left hip pain, and states that his hip feels that it is in its usual state. He states when he has been positioned and moved in the bed he can feel his hip reduced
and subluxed, which is normal for him. His father was in the room with him, and his mother was reached via telephone. Dr. Mccord's medical records were discussed with his physicians event marketing assistant Giovanna via telephone.
Allergies / Home Medications
Allergy/AdvReac Type Severity Reaction Status Date / Time
cat dander Allergy Unknown Verified 09/06/24 11:12
dog dander Allergy Unknown Verified 09/06/24 11:12
grass pollen Allergy Unknown Verified 09/06/24 11:12
horse dander Allergy Unknown Verified 09/06/24 11:12
NSAIDS (Non-Steroidal Allergy Avoids due Verified 09/06/24 17:41
Anti-Inflamma to
solitary
kidney
tree and shrub pollen Allergy Unknown Verified 09/06/24 11:12
�Medication �Instructions �Recorded
cholecalciferol (vitamin D3) 25 25 mcg PO DAILY Supplement 11/11/20
mcg (1,000 unit) tablet (Vitamin
D3)
ferrous sulfate 325 mg (65 mg 325 mg PO DAILY Supplement 02/26/23
iron) tablet
omeprazole 40 mg capsule,delayed 80 mg PO DAILY GERD 02/26/23
release
vibegron 75 mg tablet (Gemtesa) 75 mg PO DAILY OVERACTIVE BLADDER 02/26/23
vitamin B complex 1 tab PO DAILY Supplement ##0 02/26/23
ascorbic acid (vitamin C) 500 mg 500 mg PO DAILY Supplement 09/06/24
tablet (Vitamin C)
cranberry extract 200 mg capsule 72 mg PO DAILY Supplement 09/06/24
(Ellura)
fluticasone propionate 50 1 spray intranasal DAILYPRN PRN 09/06/24
mcg/actuation nasal allergies
spray,suspension
inulin 1.7 gram chewable tablet 1.7 g PO DAILY 09/06/24
(Fiber Gummies)
lamotrigine 150 mg tablet 150 mg PO BID Seizures 09/06/24
(Lamictal)
methenamine hippurate 1 gram tablet 1 g PO BID Infection 09/06/24
mirtazapine 15 mg tablet 30 mg PO HS Sleep 09/06/24
multivitamin with minerals-folic 1 tab PO DAILY Supplement 09/06/24
acid 80 mcg chewable tablet
nicotine (polacrilex) 2 mg buccal 2 mg buccal Q2HPRN PRN stop smoking 09/06/24
lozenge
Vital Signs / Lab Results
Temp Pulse Resp BP Pulse Ox
98.8 F 123 14 95/55 97
09/07/24 19:30 09/07/24 20:00 09/07/24 20:00 09/07/24 20:00 09/07/24 20:33
09/07/24 10:02
09/07/24 06:04
Physial examination:
AAOx4
Resting comfortably in bed, eating breakfast
LLE externally rotated and shortened
No erythema or wounds about hip
5/5 hip flexion, knee extension/flexion, ankle dorsi/plantarflexion
Hip able to reduce with manual pressure, however hip subluxes with release of pressure
Sensation intact distally, palpable DP/PT pulses with brisk capillary refill
XR AP pelvis and left hip: bilateral dysplastic shallow acetabuli with subluxed left hip, reduced upon lateral Xray
Assessment / Plan
Mehdi is a 18M with chronic let hip subluxation
-This is a chronic condition and has been subluxed for years. He is already under the care of Dr. Mccord at [facility] for this condition. For any attempted reduction would you have a repeat left immediately sublux. There is no acute intervention
necessary for this left on the left as keeping the hip reduced without question of how long or some sort of periacetabular osteotomy would be futile. folks around the world see that he should follow-up with Dr. Mccord and have a emerson discussion
about long-term goals and the management strategy he wishes to pursue. Orthopedics will sign off for your age. If new problems or questions arise we are available for reconsult.
[2024-09-08] VITALS (69 sets, daily range): BP systolic 52–161; BP diastolic 36–108; PULSE 3–135; BMI 21.4
[2024-09-08] MEDS: OCEAN, SALINE MIST 1 SPRAYS NASAL (03:59)
[2024-09-08] MEDS: NSS 1000 IV (03:59)
[2024-09-08] MEDS: NON-FORMULARY ITEM 2 MG BUCCAL ×3 (05:47→14:38)
[2024-09-08 06:23] LABS: Hematocrit 40.9 % (39.0-52.0); Hemoglobin 12.3 g/dL (13.0-18.0); Mean Corp Hgb Conc. 30.1 g/dL (33.0-37.0); Mean Corpuscular Volume 99.8 fL (80.0-94.0); Mean Platelet Volume 8.6 fL (7.4-10.4); Platelet Count 191 10^3/uL (130-400); White Blood Cell Count 7.8 10^3/uL (4.8-10.8)
[2024-09-08 06:50] LABS: Blood Urea Nitrogen 19 mg/dl (9-20); Calcium 8.5 mg/dl (8.4-10.2); Carbon Dioxide 36 mmol/L (22-30); Chloride 103 mmol/L (98-107); Estimated Creatinine Clearance 122 ml/min; Glucose 136 mg/dl (70-99); Potassium 5.4 mmol/L (3.5-5.1); Sodium 144 mmol/L (135-145); eGFR > 60.00
--- NOTE | 2024-09-08 07:47 | W.PN.HOSP.TC ---
Today's Communication/Plan
-
Hemoglobin stable, no active bleeding
Stop fluids
Kayexalate for hyperkalemia
Transition to PO PPI
Assessment / Plan
Assessment / Plan
IMPRESSION:
Acute seizure activity
Coffee-ground emesis
KAVYA with hyperkalemia
Acute hypoxic respiratory insufficiency
History of Sabas disease
Neurogenic bladder
Solitary kidney
PLAN:
Acute seizure activity
Admit to IMU
Previous seizure a year ago
No tongue laceration, AOX3
Currently on Lamictal, continue
Continue Lamictal to 200 mg twice daily
Ativan 1 mg IV Q2PRN for seizure activity.
Check Lamictal levels
Neurology following
Coffee-ground emesis--improved/resolved
Protonix 40 mg PO BID
Hemoglobin is stable, no active bleeding
Abdomen x-ray reveals overburden of stool, no obstruction
Appreciate GI input
Stool cultures pending
Urine and blood culture reveals no growth
KAVYA with hyperkalemia
K 5.4
Stop fluids due to lower extremity edema
Kayexalate 30 g PO
Monitor BMP
Acute hypoxic respiratory insufficiency
On 1 L O2
Wean as able
History of Sabas disease
Sees neurology at [facility]
Continue home medications
Neurogenic bladder
Self cath
Solitary kidney
since
Full code
N.p.o.
SCD
Anticipated Discharge: 24 - 48 hours
Subjective/Interval History
-
Date of Service: September 08, 2024
No overnight events
Objective Data
-
Labs:
Laboratory Results
09/08/24
05:54
WBC 7.8
Hgb 12.3 L
Hct 40.9
Plt Count 191
Sodium 144
Potassium 5.4 H
Chloride 103
Carbon Dioxide 36 H
BUN 19
Creatinine 0.9
Glucose 136 H
Calcium 8.5
Vital Signs:
Vital Signs
Temp Pulse Resp BP Pulse Ox
98.3 F 117 21 122/67 90
09/08/24 07:07 09/08/24 06:30 09/08/24 06:30 09/08/24 06:00 09/08/24 06:30
I&O
09/07/24 09/08/24 09/09/24
06:59 06:59 06:59
Intake Total 1900 / 1900 1250 / 1250
Output Total 1250 / 1250 3100 / 3100
Balance 650 / 650 -1850 / -1850
Review of Systems
-
All other systems: Reviewed and negative (Except mentioned)
Constitutional: Reports Fatigue
Physical Exam
-
General: Comfortable
HEENT: Normocephalic, Atraumatic and Other
Respiratory: Clear to Auscultation
Cardiac: Regular Rhythm and S1/S2
GI: Nondistended
Musculoskeletal: Edema, Right Lower Extrem and Edema, Left Lower Extrem
Neuro: AO x 3
Psych: Calm
Data Reviewed
-
Labs: Labs Reviewed by me and Discussed with Physician
--- NOTE | 2024-09-08 08:25 | W.PN.GI.CBS2 ---
Today's Communication / Plan
-
no active GI issues
Assessment / Plan
-
Plan:
hgb stable and asymptomatic
trace blood on stool could be hemorrhoids. will put in anusol suppositories qhs prn
constipation better than baseline and stool negative for norovirus and c.diff
will sign off call with questions
Subjective
Subjective
Date of Service: September 08, 2024
Pt well known to me.
chronic constipation but film and clinically optimized (some stool on right but minimal). having bms.
no pain
Objective
Data Reviewed
Laboratory Data:
Laboratory Results
09/08/24 05:54
09/08/24 05:54
Laboratory Results
Total Bilirubin 0.7 mg/dl (0.2-1.3) 09/06/24 11:00
AST 22 U/L (17-59) 09/06/24 11:00
ALT 20 U/L (0-50) 09/06/24 11:00
Alkaline Phosphatase 125 U/L (38-126) 09/06/24 11:00
Vital Signs and I&O:
Vital Signs
Temp Pulse Resp BP Pulse Ox
98.3 F 117 21 122/67 90
09/08/24 07:07 09/08/24 06:30 09/08/24 06:30 09/08/24 06:00 09/08/24 06:30
I&O
09/07/24 09/08/24 09/09/24
06:59 06:59 06:59
Intake Total 1900 / 1900 1250 / 1250
Output Total 1250 / 1250 3100 / 3100
Balance 650 / 650 -1850 / -1850
Physical Exam
Physical Exam
GI: Soft, Non Distended and Non Tender
--- NOTE | 2024-09-08 09:11 | W.PN.UPDATE ---
Update Note
Progress Note Update
I saw and evaluated the patient. I reviewed the resident�s note and agree with findings and plan as documented in the resident�s note. Gen: NAD, Awake and alert, appears chronically ill
Patient seen and examined during rapid response called for acute change in mental status and hypoxemia. Currently patient very minimally responsive to deep to sternal rub.
Gen: NAD, NCAT, appears chronically ill
Eyes: EOMI, PERRLA, no scleral icterus.
Neck: supple.
CV: Continues to remain tachy, reg rhythm, +S1/S2, no m/r/g.
Resp: CTAB anteriorly, no rales, wheezes, or rhonchi.
Abd: +BS, soft, NT, ND
Skin: No rashes.
Neuro: very minimally responsive to deep to sternal rub.
CXR:
1. Mild elevation of the right hemidiaphragm.
2. Moderate right convex curvature of the lower thoracic spine.
Abd Xray: Mild fecal material in the colon. No evidence of intestinal obstruction. New left hip superior dislocation.
L hip Xray: There is superior subluxation of the femur seen on frontal views, however this appears reduced on final lateral view. Consider additional frontal views of the left hip to ensure reduction.
Acute seizure activity:
-underlying seizure disorder
-Lamictal increased to 200mg BID, check Lamictal level
-neuro following
-EEG unremarkable for age
-WELDER ASSISTANT called for acute change in mental status and hypoxemia this AM. Check EEG, CT brain. As pt without tonic-clonic activity Ativan not given during WELDER ASSISTANT.
Acute hypoxemic hypercapnic respiratory failure:
-Likely due to seizure activity this morning
-AB.15/115/395
-start BIPAP /, FiO2 40%. If patient's mentation does not improve he may need to be intubated for airway protection.
-upgrade to ICU
-discussed with pulm
-check CTA chest (tachycardia)
Coffee ground emesis:
-on further oral exam small tongue lac noted
-cont Protonix 40mg PO Q12H
-Hb stable compared to prior (Feb 2023, July 2023). Current drop likely dilutional.
-GI saw in c/s
KAVYA:
-with hyperkalemia, give 30g Kayexalate rectally
-KAVYA resolved with IVFs
Tachycardia:
-check CTA chest to assess for PE
Other problems:
Sabas disease/leukodystrophy
Neurogenic bladder
Solitary kidney
Pt's mother updated at bedside.
FULL/SCDs. Will add Lovenox for DVT proph as Hb stable and GIB was likely due to tongue lac.
Total critical care time spent = 40 min
[2024-09-08] MEDS: LAMICTAL PO ×2 (09:52→11:52)
[2024-09-08] MEDS: DETROL LA PO ×2 (09:52→11:52)
[2024-09-08] MEDS: KAYEXALATE SUSPENSION 30 GRAMS PO (09:53)
[2024-09-08 10:24] LABS: Glucose - Point of Care 124 mg/dl (70-99)
[2024-09-08 10:37] LABS: B.E. 9.7 mmol/L; PO2 395 mmHg (83-108)
[2024-09-08 10:40] LABS: HCO3 43.2 mmol/L (21-28); PCO2 > 115 mmHg (35-48); pH 7.15 (7.35-7.45)
--- NOTE | 2024-09-08 10:46 | W.PN.NEURO.1 ---
Today's Communication / Plan
-
Obtain Lamotrigine level
Obtain ammonia level and treat aggressively
Hold Lamotrigine 200 mg twice daily due to the patient's decline in mental status
Repeat EEG due to the patient's decline in mental status
If patient does not improve with treatment of respiratory compromise and if EEG is not demonstrative of ongoing status epilepticus, check MRI of brain
Neuro Assessment/Plan
Assessment
The patient is a 18 year old male with PMH significant for Sabas Disease/leukodystrophy and Epilepsy who presents to ED on 09/06/2024 in the setting of a change in mental status presumed to be breakthrough seizure
Repeated CT of head compared with last neuroimaging in 2023 suggests bihemispheric edema diffusely
1. Epilepsy with possible breakthrough seizure in the setting of metabolic disturbance of unclear etiology; differential diagnosis includes lamotrigine toxicity, hyperammonemia
2. KAVYA with hyperkalemia
Plan
Obtain Lamotrigine level
Obtain ammonia level and treat aggressively
Hold Lamotrigine 200 mg twice daily due to the patient's decline in mental status
Repeat EEG due to the patient's decline in mental status
If patient does not improve with treatment of respiratory compromise and if EEG is not demonstrative of ongoing status epilepticus, check MRI of brain
We will follow
Subjective/Objective
Subjective Data
Date of Service: September 08, 2024
Patient unable to provide his own medical history.
Objective Data
Vital Signs
Temp Pulse Resp BP Pulse Ox
36.8 C 112 21 110/70 90
09/08/24 07:07 09/08/24 09:53 09/08/24 06:30 09/08/24 09:53 09/08/24 06:30
Lab Results
09/08/24 05:54
09/08/24 05:54
Sodium 144 mmol/L (135-145) 09/08/24 05:54
Potassium 5.4 mmol/L (3.5-5.1) H 09/08/24 05:54
BUN 19 mg/dl (9-20) 09/08/24 05:54
Glucose 136 mg/dl (70-99) H 09/08/24 05:54
Calcium 8.5 mg/dl (8.4-10.2) 09/08/24 05:54
Patient Allergies
cat dander Allergy (Verified 09/06/24 11:12)
Unknown
dog dander Allergy (Verified 09/06/24 11:12)
Unknown
grass pollen Allergy (Verified 09/06/24 11:12)
Unknown
horse dander Allergy (Verified 09/06/24 11:12)
Unknown
NSAIDS (Non-Steroidal Anti-Inflamma Allergy (Verified 09/06/24 17:41)
Avoids due to solitary kidney
tree and shrub pollen Allergy (Verified 09/06/24 11:12)
Unknown
Review of Systems
-
Unable to obtain full review of systems at this time due to: Lethargy
History Source: Patient
All other systems: Reviewed and negative
Physical Exam
-
General: Appears Stated Age and Wearing Oxygen
Eyes: Round OU, [place] Conjunctivae and No Ptosis
HEENT: Anicteric and Moist Mucous Membranes
Neck: Full Range of Motion
Respiratory: No Dyspnea
Cardiac: No JVD
GI: Non-distended
Skin: Unremarkable
Extremities: No Clubbing, No Cyanosis and No Edema
Psych: Unable to Assess
Extended Neurological Exam
Mood & Affect: Unable to Assess
Attention Span & Concentration: Unable to Perform 2 Step Request and Other (Unable to perform single step requests); Negative Awake, Alert or Interactive
Memory: Unable to Assess
Tremor: Hand Tremor Absent and Head Tremor Absent
Involuntary Movement: None
Speech: Mute
Cranial Nerve II: Left Eye: Pupillary Reactivity Unremarkable, Pupillary Size Unremarkable and Unable to Assess Visual Shrestha
Cranial Nerve II: Right Eye: Pupillary Reactivity Unremarkable, Pupillary Size Unremarkable and Unable to Assess Visual Shrestha
Cranial Nerves III, IV, : Extraocular Movement: Negative Absent Doll's Eyes
Cranial Nerve VII: Facial Symmetry: Normal Facial Symmetry
Cranial Nerve VIII: Hearing: Unable to Assess
Cranial Nerves IX, X: Palate Movement: Unable to Assess
Cranial Nerve XI: Shoulder Shrug: Unable to Assess
Cranial Nerve XII: Tongue Protusion: Unable to Assess
Muscle Strength, Overall: Negative Spontaneously Moves (All extremities)
Muscle Bulk & Tone: Bulk Unremarkable and Tone Unremarkable
Pronator Drift: Unable to Assess
Cold Sensation: Unable to Assess
Vibration Sensation: Unable to Assess
Touch Sensation: Withdrawal to Pain
Coordination: Unable to Assess
Gait & Station: Unable to Assess
Data Reviewed
-
CT Head: Report Reviewed and Image Reviewed
EEG: Pending
Labs: Ordered and Report Reviewed
Reviewed with: Physician, Nurse and Family
Old Records: Summarized
Past History
Past History
ED Past Medical History: Asthma, GERD, Seizures and Other (sabas allen)
ED Past Surgical History: Orthopedic
Social History
Tobacco: Non-smoker
Alcohol: None
Drug: None
Personal: Single
Living: with family
Family History
Family History: Other (reviewed and non-contributory)
Medications
-
Medications:
Generic Name Dose Route Start Last Admin
Trade Name Freq PRN Reason Stop Dose Admin
Acetaminophen 650 mg 09/06/24 21:36
Acetaminophen 650 Mg Rectal Suppository RECTAL 10/04/24 21:35
Q4HPRN PRN
fever>100.4,headache,mild pain
Acetaminophen 650 mg 09/06/24 21:41 09/06/24 21:52
Acetaminophen 325 Mg Tablet PO 10/04/24 21:40 650 mg
Q4HPRN PRN Administration
headache,mild pain,fever>100.4
Hydrocortisone Acetate 25 mg 09/08/24 08:30
Anusol Hc 25 Mg Rectal Suppository RECTAL 10/06/24 08:29
HSPRN PRN
if bleeding
Lamotrigine 200 mg 09/06/24 20:00 09/08/24 09:52
Lamotrigine 100 Mg Tablet PO 10/04/24 19:59 200 mg
BID ANDRES Administration
Lorazepam 1 mg 09/06/24 17:34
Lorazepam 2 Mg/Ml Vial IV 10/04/24 17:33
Q2HPRN PRN
seizure
Metoprolol Succinate 25 mg 09/08/24 10:00 09/08/24 09:53
Metoprolol 25 Mg Extended Release Tablet PO 10/06/24 09:59 25 mg
DAILY ANDRES Administration
Metoprolol Tartrate 5 mg 09/07/24 13:13 09/07/24 15:00
Metoprolol 5 Mg/5 Ml Vial IV 10/05/24 13:12 5 mg
Q6HPRN PRN Administration
palpitations, HR>120
Mirtazapine 30 mg 09/06/24 22:00 09/07/24 20:00
Mirtazapine 15 Mg Regular Release Tablet PO 10/04/24 21:59 30 mg
HS ANDRES Administration
Nicotine (Polacrilex 2 mg 09/06/24 19:45 09/08/24 07:49
) 2 Mg Lozenge - 1 BUCCAL 2 mg
Lozenge (2mg) Buccal Q2HPRN PRN Administration
nicotine cravings
Pantoprazole Sodium 40 mg 09/08/24 08:00 09/08/24 09:53
Pantoprazole 40 Mg Delayed Release Tablet PO 10/06/24 07:59 40 mg
BID ANDRES Administration
Sodium Chloride 0 flush 09/06/24 16:00
Sodium Chloride 0.9% (Flush) Syringe IV 10/04/24 15:59
PER PROTOCOL ANDRES
Sodium Chloride 0 ml 09/06/24 18:00
Sodium Chloride 0.9% (Preservative Free) 10 Ml Vial IV 10/04/24 17:59
PRN PRN
IV Lorazepam dilution
Protocol
Sodium Chloride 1 sprays 09/07/24 05:49 09/08/24 03:59
Sodium Chloride 0.65% Nasal [place] 45 Ml Bottle NASAL 10/05/24 05:48 1 sprays
QIDPRN PRN Administration
congestion
Tolterodine Tartrate 4 mg 09/07/24 08:00 09/08/24 09:52
Tolterodine 4 Mg Extended Release Capsule PO 10/05/24 07:59 4 mg
DAILY ANDRES Administration
--- NOTE | 2024-09-08 10:52 | W.PN.UPDATE ---
Update Note
Progress Note Update
TOP HAT BODY MAKER called for acute changes in mental status, patient was more obtunded this a.m. Suspect due to another seizure activity. Check EEG, CT brain, CT chest PE. Patient was not seizing actively when I went in the room. No Ativan given as patient
was without tonic-clonic activity. Stat ABG reveals 7.1 5/115/395. Start BiPAP 12/, FiO2 40%. Transfer to ICU. If patient's mentation does not improve he may need to be intubated for airway protection. Discussed plan with pulmonology.
[2024-09-08 11:06] LABS: Glucose - Point of Care 104 mg/dl (70-99)
--- NOTE | 2024-09-08 11:20 | CON.INTV ---
Consultation
Consultation Request
Date/Time Consultation Requested: 09/08/2024-11 AM
Date/Time Consultation Performed: 09/08/2024-11:15 AM
Requesting Provider: hospitalist
Performing Provider: Dr. Gan
Reason for Consultation: respiratory failure/seizures/critical care management
Medical History
-
Chief Complaint: mental status changes
History of Present Illness:
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 He had a procedure the day prior to admission at [facility] for subluxation of the left hip. He had progressive mental status
changes, possible recurrent seizure here in the hospital and was transferred to ICU for impending respiratory failure-stock manager consulted for ventilator/respiratory failure/seizure/critical care management 09/08/2024. Patient is obtunded and review
of systems was unobtainable from him. His mother was at the bedside he states that he had an episode that looked like a seizure and progressive mental status changes and obtundation. BiPAP was attempted for half an hour without improvement in ABG.
Patient was subsequently intubated.
Past Medical History
Past Medical History: None ( Sabas disease. Asthma. GERD. Seizure disorder.)
Social History
Tobacco: Non-smoker
Alcohol: None
Drug: None
Personal: Single
Living: With Family
Occupational Exposures: No known asbestos exposure
Environmental Exposures: no known tuberculosis exposure
Family History
Family History: Reviewed & Not Pertinent
Allergies / Home Medications
Allergies
Allergy/AdvReac Type Severity Reaction Status Date / Time
cat dander Allergy Unknown Verified 09/06/24 11:12
dog dander Allergy Unknown Verified 09/06/24 11:12
grass pollen Allergy Unknown Verified 09/06/24 11:12
horse dander Allergy Unknown Verified 09/06/24 11:12
NSAIDS (Non-Steroidal Allergy Avoids due Verified 09/06/24 17:41
Anti-Inflamma to
solitary
kidney
tree and shrub pollen Allergy Unknown Verified 09/06/24 11:12
Home Medications
�Medication �Instructions �Recorded �Confirmed �Last Taken �Type
cholecalciferol (vitamin D3) 25 25 mcg PO DAILY Supplement 11/11/20 09/06/24 02/26/23 11:00 History
mcg (1,000 unit) tablet (Vitamin
D3)
ferrous sulfate 325 mg (65 mg 325 mg PO DAILY Supplement 02/26/23 09/06/24 02/26/23 11:00 History
iron) tablet
omeprazole 40 mg capsule,delayed 80 mg PO DAILY GERD 02/26/23 09/06/24 02/26/23 11:00 History
release
vibegron 75 mg tablet (Gemtesa) 75 mg PO DAILY OVERACTIVE BLADDER 02/26/23 09/06/24 02/26/23 11:00 History
vitamin B complex 1 tab PO DAILY Supplement ##0 02/26/23 09/06/24 02/26/23 11:00 History
ascorbic acid (vitamin C) 500 mg 500 mg PO DAILY Supplement 09/06/24 09/06/24 Unknown History
tablet (Vitamin C)
cranberry extract 200 mg capsule 72 mg PO DAILY Supplement 09/06/24 09/06/24 Unknown History
(Ellura)
fluticasone propionate 50 1 spray intranasal DAILYPRN PRN 09/06/24 09/06/24 Unknown History
mcg/actuation nasal allergies
spray,suspension
inulin 1.7 gram chewable tablet 1.7 g PO DAILY 09/06/24 09/06/24 Unknown History
(Fiber Gummies)
lamotrigine 150 mg tablet 150 mg PO BID Seizures 09/06/24 09/06/24 Unknown History
(Lamictal)
methenamine hippurate 1 gram tablet 1 g PO BID Infection 09/06/24 09/06/24 Unknown History
mirtazapine 15 mg tablet 30 mg PO HS Sleep 09/06/24 09/06/24 Unknown History
multivitamin with minerals-folic 1 tab PO DAILY Supplement 09/06/24 09/06/24 Unknown History
acid 80 mcg chewable tablet
nicotine (polacrilex) 2 mg buccal 2 mg buccal Q2HPRN PRN stop smoking 09/06/24 09/06/24 Unknown History
lozenge
Review of Systems
-
Unable to Obtain full review of systems at this time due to: Other ( per HPI)
Vitals / Labs / Diagnostic Testing
Vital Signs
Temp Pulse Resp BP Pulse Ox
98.3 F 112 21 110/70 90
09/08/24 07:07 09/08/24 09:53 09/08/24 06:30 09/08/24 09:53 09/08/24 06:30
Lab Data
09/08/24 05:54
09/08/24 05:54
Laboratory Results
09/08/24
10:20
pH 7.15 L*
pCO2 > 115 H*
pO2 395 H
HCO3 43.2 H*
O2 Delivery Level Not Reportable
Microbiology
09/06/24 20:19 Feces/Stool Shiga Toxin Test - Final
No E. coli Shiga Toxin 1 or 2 detected.
09/06/24 20:19 Feces/Stool Stool Leukocytes - Final
09/06/24 12:06 Blood/Venous Blood Culture - Preliminary
No Growth in 24 hours- Final report to follow
09/06/24 12:12 Blood/Venous Blood Culture - Preliminary
No Growth in 24 hours- Final report to follow
09/06/24 17:20 Urine Urine Culture - Final
NO GROWTH
09/06/24 20:19 Feces/Stool C. difficile GDH Antigen & Toxins - Final
Negative for toxigenic C.difficile
09/06/24 20:19 Feces/Stool - Final
Negative for Norovirus GI and GII.
Diagnostic Testing:
Physical Exam
-
Exam:
well-nourished and well-developed in no apparent distress
HEENT-atraumatic, normocephalic
Neck-supple, no JVD, no bruit
Heart-regular rate and rhythm-no murmurs, rubs or gallops
Chest-clear to auscultation, no wheezes, crackles
Back-no tenderness
Abdomen-soft, nontender, nondistended, no hepatosplenomegaly
Extremities-no cyanosis, clubbing, edema and good peripheral pulses
Integument-intact, no rashes, lesions or ecchymosis
Neurologically not alert, not oriented not moving extremities
Assessment
-
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 He had a procedure the day prior to admission at [facility] for subluxation of the left hip. He had progressive mental status
changes, possible recurrent seizure here in the hospital and was transferred to ICU for impending respiratory failure-stock manager consulted for ventilator/respiratory failure/seizure/critical care management 09/08/2024.
Mental status changes secondary to hypercapnia possible underlying seizure
Seizures
Hypercapnic respiratory failure-ABG 09/08/2024-greater than 115/395/7.15
Intubated 09/08/2024
Extubated
Coffee-ground emesis
KAVYA
Hyperkalemia
Mild anemia-hemoglobin 12.3
Conditions present prior to admission:
Sabas disease.
Asthma.
GERD.
Seizure disorder.
Chronic constipation
Bilateral hip dysplasia
Plan
Patient critically ill transferred to ICU with impending respiratory failure
BiPAP initiated and tried for half an hour with subsequent ABG showing persistent hypercapnic acidosis
Recommend intubation
Ventilator settings recommended
Follow ABG
Wean FiO2
VAP prevention protocol
Nebulizers if needed
Check sputum
Low threshold for antibiotics as patient might have aspirated
Neurology evaluation ongoing
Consider continuous EEG
Antiepileptics adjusted
CT head summarized below
Follow hemoglobin
Transfuse as needed
No evidence for further gastrointestinal bleeding
Electrolytes corrected
Monitor renal function
DVT prophylaxis
GI prophylaxis
Nutrition
Early mobilization
Reviewed with mother at the bedside on several occasions
Critical care statement: A total of 65 minutes of critical care time was provided for this patient today. This includes management of unstable vital signs, evaluation of the patient at bedside, reviewing the patient's pertinent medical records
including radiographs, Management of ventilator, pressors, sedationmicrobiology, laboratory evaluations, and discussion with primary team, consultants, pharmacy, nutrition, physical therapy, case management, charge nurse, critical care nursing,
and respiratory therapy.
Diagnostic data:
Chest x-ray 09/06/24-mild elevation right hemidiaphragm
CT chest 09/08/2024-no evidence for pulmonary embolism, bilateral lower lobe consolidation suspicious for pneumonia
CT head 09/08/2024-
[2024-09-08 11:56] LABS: Ammonia 29 umol/L (9-30)
[2024-09-08 11:58] LABS: INR 1.04; PT 14.1 Sec (11.4-14.6)
[2024-09-08] MEDS: KAYEXALATE SUSPENSION 30 GRAMS RECTAL (11:59)
[2024-09-08 12:01] LABS: B.E. 6.6 mmol/L; O2 Saturation % 99.1 % (94-98); PO2 111 mmHg (83-108)
[2024-09-08 12:06] LABS: HCO3 40.3 mmol/L (21-28); PCO2 > 115 mmHg (35-48); pH 7.11 (7.35-7.45)
[2024-09-08] MEDS: NEO-SYNEPHRINE 250 IV (12:28)
--- NOTE | 2024-09-08 12:30 | W.PN.ANESINT ---
Anesthesia Intubation Note
- Intubation Note
Intubation Note:
Diagnosis: acute respiratory failure with hypercapnea
Blade: mac 4
Tube Size: 8.0
Depth: 22
Side Taped: right
Drugs Used: propofol 50 mg, rocuronium 20mg
Grade View: 1
EtCO2 Present: yes
Atraumatic: yes
Attempts: 1
Insertion Start and Stop Time: 8778-6949
SaO2 Pre: 97
SaO2 Post: 99
Glidescope Used: yes
Other Airway Adjustments:
Pre-Oxygenated: yes
Portable Chest X-Ray: pending
RSI:
Suctioned:
Bilateral Breath Sounds Confirmed: yes
Vent Settings:
Settings per __x_Attending Physician
[2024-09-08] MEDS: SUBLIMAZE 50 MCG IV ×6 (12:41→16:58)
[2024-09-08] MEDS: LR 500 IV (12:50)
--- NOTE | 2024-09-08 13:26 | PTCARENOTE ---
Pt received in the ICU s/p rapid response. Pt found obtunded in IMU. Brought for Head CT and Lung CT. ABG with pH 7.14. CO2 > 115. Minimally responsive. BiPAP attempted; repeat ABG without improvement. Decision made to intubate. ETT # 8 @ 22cm to
right lip. AC (20/450/40%/5+). ETT placement confirmed by CXR. Sinus tach on retail financial analyst. HR observed 120s - 140s. +1 pitting LE edema. Hypotensive after intubation. Neosynephrine gtt started with goal of MAP > 65; currently infusing @ 40
mcg/min. LR 500ml bolus infused. OG tube inserted to 65cm. Abdomen round, distended. Auscultated in stomach. Placement confirmed by XR. Bladder scanned for 680ml. Straight cath performed for 680ml.
Pt able to rouse after intubation. Following commands. Communicating pain. PRN Fentanyl 50 mcg IV administered.
[2024-09-08] MEDS: DUPHALAC/CHRONULAC 20 GRAMS TUBE (14:01)
[2024-09-08 14:08] LABS: HCO3 34.7 mmol/L (21-28); O2 Saturation % 99.1 % (94-98); PCO2 33 mmHg (35-48); PO2 125 mmHg (83-108)
[2024-09-08 14:12] LABS: pH 7.63 (7.35-7.45)
--- NOTE | 2024-09-08 14:49 | EEG.RPT ---
Electroencephalogram Report
Recording
Date of EE09/08/24
Type of EEG: Routine
Length of EEG recordin minutes
Done with Video Recording: Yes
Patient Status: Inpatient
Recording Conditions: Drowsy and Asleep
Hyperventilation Performed: No
Photic Stimulation Performed: Yes
Report
LESS THAN 1 HOUR REPORT
LESS THAN 1 HOUR EEG INTERPRETATION:
Severely abnormal study for age based on nearly continuous frontally predominant generalized rhythmic delta activity (FIRDA) and generalized slowing demonstrated bihemispherically equally
CLINICAL CORRELATION:
This study was suggestive of a generalized cortical dysfunction. The speed of the slowing demonstrated was not consistent with status epilepticus or ongoing nonconvulsive seizures.
Clinical correlation is advised.
METHODS:
A 21 channel digitized electroencephalogram (EEG) was performed at the bedside in the intensive care unit. The 10/20 international system of electrode placement was used with ECG and lateral/vertical eye movements recorded. The [employer] quantitative
EEG system was utilized.
ELECTROENCEPHALOGRAPHER IMPRESSION(S):
Quality of study
Fair�good due to sweat artifact
Background
Medium amplitude
Fair anterior-posterior voltage gradient differentiation
Theta maximal background demonstrated, rarely
Sleep
Drowsiness present
Hyperventilation
Not performed
Photic Stimulation
Failed to activate the record
ECG
Normal rhythm
Abnormal Activity
Nearly continuous frontally predominant semi-rhythmic 1�2 Hz activity lasting approximately 4 seconds which was of high amplitude
[2024-09-08] MEDS: DIPRIVAN 100 IV (15:16)
[2024-09-08 15:35] LABS: Triglycerides 68 mg/dl (10-149)
--- NOTE | 2024-09-08 16:24 | CM ---
Patient parents seen with patient in ICU room. Patient parents are trying to assess what the 'puzzle' of patent needs will look like in the future. CM reviewed pull out of resources and patient family plan to review with physicians recommendations
and will talk to CM about referrals when they understand what physician recommendations are. CM will continue to follow for discharge planning needs.
Plan; uncertain; watch for home with VN; acute rehab pending recommendations.
[2024-09-08] MEDS: SUBLIMAZE 100 IV (16:34)
[2024-09-08] MEDS: LOVENOX 40 MG SC (16:59)
--- NOTE | 2024-09-08 18:12 | PTCARENOTE ---
Pt reassessed. Increased restlessness. Expressing pain. PRN Fentanyl 50mcg IV boluses attempted without relief. Fentanyl gtt infusing @ 50 mcg/hr and Propofol 20 mcg/kg/min. CPOT 0 and RASS -1. PT able to open eyes and follow commands. Mouthing
words. Following ABG and vent settings adjusted. Bladder scanned after no void. Straight cath'd for 675ml. MAP remains > 65; weaning Neosynephrine.
[2024-09-08] MEDS: TYLENOL 650 MG TUBE ×2 (19:34→23:53)
[2024-09-08] MEDS: NSS (PRESERVATIVE FREE) 10 ML IV (19:34)
[2024-09-08] MEDS: DETROL 2 MG TUBE (19:34)
[2024-09-08] MEDS: PROTONIX IV 40 MG IV (19:34)
--- NOTE | 2024-09-08 20:00 | PTCARENOTE ---
Addendum entered by Haley Rubio RN 09/08/24 23:28:
Cannot verify vitals prior to 0, previous shift.
Original Note:
Received patient intubated, sedated, and restrained. ST 120s, BP stable, 110s/70s, phenylephrine drip off. Febrile to 103, tylenol given. 8.0 ETT, 23 at the lip, moved to the center. AC 14/450/40%+5, lung sounds coarse with rhonchi scattered
throughout. Saturating 98%, thick oral secretions. OG at 65cm set to LIWS. Abdomen soft, round, nontender, hypoactive bowel sounds. Patient self straight caths at home, continuing to straight cath. Foam on yi CDI. PIVs patent, WNL. Propofol and
fentanyl gtt ongoing. Hourly rounding and patient safety checks ongoing.
[2024-09-08 20:35] LABS: Lamotrigine (Lamictal) 4.4 ug/mL (3.0-15.0)
[2024-09-08] MEDS: REMERON 30 MG TUBE (22:57)
[2024-09-09] VITALS (49 sets, daily range): BP systolic 98–150; BP diastolic 44–105; PULSE 3–115; BMI 21.5
[2024-09-09 00:36] LABS: Lactic Acid 1.2 mmol/L (0.7-2.0)
[2024-09-09 00:36] LABS: Magnesium 1.4 mg/dl (1.6-2.3)
[2024-09-09 01:01] LABS: Blood Urea Nitrogen 17 mg/dl (9-20); Calcium 8.7 mg/dl (8.4-10.2); Carbon Dioxide 30 mmol/L (22-30); Chloride 106 mmol/L (98-107); Estimated Creatinine Clearance > 125 ml/min; Glucose 108 mg/dl (70-99); Potassium 3.7 mmol/L (3.5-5.1); Sodium 143 mmol/L (135-145); eGFR > 60.00
--- NOTE | 2024-09-09 01:14 | PTCARENOTE ---
Temperature consistently remains at 103 despite tylenol, cooling blanket initiated. Blood cultures sent, labs sent. Mouth care done, sheets changed. Bladder scanned for 404 mls, straight cathed for 550 mls. Repositioned, hourly rounding and patient
safety checks ongoing.
[2024-09-09 01:59] LABS: Ammonia 9 umol/L (9-30)
[2024-09-09] MEDS: MAGNESIUM SULFATE 50 IV (02:15)
--- NOTE | 2024-09-09 05:26 | PTCARENOTE ---
Patient off cooling blanket since 0200, normothermic. Heart rate NS 80s-90s, mag repleted. Otherwise patient assessment unchanged from previous. Hourly rounding and patient safety checks ongoing, mouth care done, repositioned.
--- NOTE | 2024-09-09 07:59 | W.PN.UPDATE ---
Addendum entered and electronically signed by Veto Diaz MD 09/09/24 15:40:
Sepsis due to possible PNA
Original Note:
Update Note
Progress Note Update
I saw and evaluated the patient. I reviewed the resident�s note and agree with findings and plan as documented in the resident�s note.
Patient intubated but awake and alert
Gen: NAD, NCAT, appears chronically ill
Eyes: EOMI, PERRLA, no scleral icterus.
Neck: supple.
CV: tachy, reg rhythm, +S1/S2, no m/r/g.
Resp: Remains CTAB anteriorly, no rales, wheezes, or rhonchi.
Abd: Remains +BS, soft, NT, ND
Skin: No rashes.
Neuro: CN2-12 intact
CXR on admission:
1. Mild elevation of the right hemidiaphragm.
2. Moderate right convex curvature of the lower thoracic spine.
Abd Xray: Mild fecal material in the colon. No evidence of intestinal obstruction. New left hip superior dislocation.
L hip Xray: There is superior subluxation of the femur seen on frontal views, however this appears reduced on final lateral view. Consider additional frontal views of the left hip to ensure reduction.
CT brain 09/08/24AM: Suspect mild diffuse cerebral edema which could reflect underlying diffuse hypoxic-ischemic brain injury.
EEG 09/08/24: This study was suggestive of a generalized cortical dysfunction. The speed of the slowing demonstrated was not consistent with status epilepticus or ongoing nonconvulsive seizures.
CTA chest:
1. No evidence of pulmonary embolism.
2. Bilateral lower lobe consolidations suspicious for pneumonia, possibly aspiration related.
CXR 09/09/24:
1. Minimal retrocardiac opacity, which may be related to pneumonia or subsegmental atelectasis.
2. Otherwise clear lungs.
Acute seizure activity:
-underlying seizure disorder
-Lamictal increased to 200mg BID, initial Lamictal level normal
-initial EEG unremarkable for age (as well as repeat EEG)
-see below. The patient's seizure on admission could have been caused/exacerbated by acute hypercapnic respiratory failure
Acute hypoxemic and hypercapnic respiratory failure:
-[employer]ODUCT MA[employer]GER called 09/08/24 for acute change in mental status and hypoxemia. As pt without tonic-clonic activity Ativan not given during [employer]. EEG did not show seizure activity, CT brain showed mild diffuse cerebral edema which could reflect underlying
diffuse hypoxic�ischemic brain injury.
-AB.15/115/395 and the patient was intubated after failing BiPAP.
-CTA chest above, notable for no PE and B/L LL consolidations
-Neurology discussed the case with the patient's neurologist at [facility] on 09/09/24. 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 The patient had orthopedic surgery just prior to admission. It is likely that the anesthesia worsened and/or
instigated acute hypercapnic respiratory failure.
Coffee ground emesis:
-on further oral exam small tongue lac noted
-cont Protonix 40mg BID
-Hb stable compared to prior (Feb 2023, July 2023). Current drop likely dilutional.
-GI saw in c/s
KAVYA:
-with hyperkalemia, now resolved
-KAVYA resolved with IVFs
Tachycardia:
-CTA chest NEG for PE
Other problems:
Hypomagnesemia: s/p 2g IV Mg
Sabas disease/leukodystrophy
Neurogenic bladder
Solitary kidney
Pt's mother updated at bedside.
Discussed with ID and neurology.
FULL/Lovenox
Total critical care time spent = 45 min
--- NOTE | 2024-09-09 08:02 | W.PN.HOSP.TC ---
Today's Communication/Plan
-
Check brain
Can be extubated as the patient is awake
Repeat ABG
Replete electrolyte
Assessment / Plan
Assessment / Plan
IMPRESSION:
Acute mental status changes secondary to hypercapnia
Hypomagnesemia
Acute seizure activity
Coffee-ground emesis
KAVYA with hyperkalemia
Acute hypoxic respiratory insufficiency
History of Sabas disease
Neurogenic bladder
Solitary kidney
PLAN:
Acute mental status changes secondary to hypercapnia
Possibly due to seizure
Initially tried BiPAP, however due to significant hypercapnia the patient was intubated in ICU on 09/08/2024
ABG has improved--7.63/33/125
Repeat ABG
Ammonia level is 9-- normal
Patient can be extubated since he is awake and following simple commands with nodding his head
EEG not consistent with status epilepticus or ongoing nonconvulsive seizures
CT head revealed initial cerebral edema
Check brain MRI
Replete electrolytes
Hypomagnesemia
Replete magnesium
Acute seizure activity
Previous seizure a year ago
No tongue laceration, AOX3
Currently on Lamictal, continue
Continue Lamictal to 200 mg twice daily
Ativan 1 mg IV Q2PRN for seizure activity.
Lamictal levels- 4.4-- no toxicity
Coffee-ground emesis--improved/resolved
Protonix 40 mg PO BID
Hemoglobin is stable, no active bleeding
Abdomen x-ray reveals overburden of stool, no obstruction
Appreciate GI input
Stool cultures pending
Urine and blood culture reveals no growth
No evidence of further GI bleed
KAVYA with hyperkalemia--- resolved
Stop fluids due to lower extremity edema
Kayexalate 30 g PO
Monitor BMP
Acute hypoxic respiratory insufficiency
On 1 L O2
Wean as able
History of Sabas disease
Sees neurology at [facility]
Continue home medications
Neurogenic bladder
Self cath
Solitary kidney
since
Full code
N.p.o.
SCD
Anticipated Discharge: > 48 hours
Subjective/Interval History
-
Date of Service: September 09, 2024
Patient is now awake, following simple commands.
Objective Data
-
Labs:
Laboratory Results
09/09/24 09/09/24 09/09/24
00:02 00:51 06:48
WBC Pending
Hgb Pending
Hct Pending
Plt Count Pending
Sodium 143 Cancelled
Potassium 3.7 D Cancelled
Chloride 106 Cancelled
Carbon Dioxide 30 Cancelled
BUN 17 Cancelled
Creatinine 0.9 Cancelled
Glucose 108 H Cancelled
Calcium 8.7 Cancelled
Total Bilirubin Cancelled
AST Cancelled
ALT Cancelled
Alkaline Phosphatase Cancelled
Vital Signs:
Vital Signs
Temp Pulse Resp BP Pulse Ox
98.5 F 88 16 146/91 95
09/09/24 07:38 09/09/24 06:00 09/09/24 06:00 09/09/24 06:00 09/09/24 07:55
I&O
09/08/24 09/09/24 09/10/24
06:59 06:59 06:59
Intake Total 1250 / 1250 1478.4 / 1478.4
Output Total 3100 / 3100 3380 / 3380
Balance -1850 / -1850 -1901.6 / -1901.6
Review of Systems
-
Unable to obtain full review of systems at this time due to: Patient Intubation
Physical Exam
-
General: Intubated (awake, following simple commands )
HEENT: Normocephalic and Atraumatic
Respiratory: Clear to Auscultation
Cardiac: Regular Rhythm and S1/S2
GI: Nondistended
Musculoskeletal: Edema, Right Lower Extrem and Edema, Left Lower Extrem
Neuro: AO x 3
Psych: Calm
Data Reviewed
-
Labs: Labs Reviewed by me and Discussed with Physician
[2024-09-09] MEDS: DUPHALAC/CHRONULAC TUBE (08:11)
[2024-09-09] MEDS: DETROL TUBE (08:12)
[2024-09-09] MEDS: PROTONIX IV 40 MG IV ×2 (08:12→20:08)
[2024-09-09] MEDS: NSS (PRESERVATIVE FREE) 10 ML IV ×2 (08:12→20:08)
[2024-09-09] MEDS: MIRALAX TUBE (08:12)
[2024-09-09 08:55] LABS: Hematocrit 37.2 % (39.0-52.0); Mean Corp Hgb Conc. 32.3 g/dL (33.0-37.0); Mean Corpuscular Hgb 30.3 pg (27.0-31.0); Mean Corpuscular Volume 93.9 fL (80.0-94.0); Mean Platelet Volume 9.1 fL (7.4-10.4); Platelet Count 188 10^3/uL (130-400); Red Blood Cell Count 3.96 10^6/uL (4.70-6.10); Red Cell Dist. Width 12.3 % (11.5-14.5); White Blood Cell Count 8.3 10^3/uL (4.8-10.8)
--- NOTE | 2024-09-09 08:56 | W.PN.INTV ---
Today's Communication / Plan
Recommendations
Spontaneous breathing trial
Check cultures
Empiric antibiotics
If no further CO2 retention then extubate to BiPAP 14/8 cm at night and during the daytime as needed
Assessment
-
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 He had a procedure the day prior to admission at [facility] for subluxation of the left hip. He had progressive mental status
changes, possible recurrent seizure here in the hospital and was transferred to ICU for impending respiratory failure-public health worker consulted for ventilator/respiratory failure/seizure/critical care management 09/08/2024.
Mental status changes secondary to hypercapnia possible underlying seizure
Seizures suspected-neurology does not believe seizure event
Hypercapnic respiratory failure-ABG 09/08/2024-greater than 115/395/7.15-reportedly can occur in patients with Sabas syndrome-potentially triggered by recent anesthesia/left hip subluxation prior to admission
Intubated 09/08/2024
Extubated 09/09/2024
Coffee-ground emesis
Aspiration pneumonia
KAVYA
Hyperkalemia
Mild anemia-hemoglobin 12.3
Conditions present prior to admission:
Sabas disease.
Asthma.
GERD.
Seizure disorder.
Chronic constipation
Bilateral hip dysplasia
Plan
Remains critically ill on a ventilator
Ventilator settings reviewed
Ventilator adjusted
Try spontaneous breathing trial for several hours today-if no further CO2 reduction would consider extubation
BiPAP as backup-on CPAP 8 cm at home due to KIKO-consideration towards conversion to BiPAP 14/8 cm-follows with Dr. Gan in the outpatient setting locally and at [facility]
VAP prevention protocol
Nebulizers if needed-some mild bronchospasm
Check cultures
Sputum culture
Empiric antibiotics-suspect aspiration-spiked temperature, leukocytosis, and infiltrate on chest x-ray
Neurology evaluation ongoing-do not believe this was a seizure
Neurology at [facility] states that occasionally Sabas syndrome patients can have CO2 retention-may have been triggered by anesthesia event Thursday at [facility] for hip dysplasia
EEG without acute seizure
CT head summarized below
Brain MRI once extubated-MRI compatible ventilator available but we do not have 'state approval' for use-hopefully in the near future
Follow hemoglobin
Transfuse as needed
No evidence for further gastrointestinal bleeding
Electrolytes corrected
Monitor renal function
DVT prophylaxis
GI prophylaxis
Nutrition
Early mobilization
Reviewed with mother at the bedside several times 09/08/2024 and was present during multidisciplinary rounds 09/09/2024-she spoke at length about his Sabas syndrome, excellent care at [facility], potential trials in the future
Critical care statement: A total of 45 minutes of critical care time was provided for this patient today. This includes management of unstable vital signs, evaluation of the patient at bedside, reviewing the patient's pertinent medical records
including radiographs, management of ventilator, pressors, sedationmicrobiology, laboratory evaluations, and discussion with primary team, consultants, pharmacy, nutrition, physical therapy, case management, charge nurse, critical care nursing,
and respiratory therapy.
Diagnostic data:
Chest x-ray 09/06/24-mild elevation right hemidiaphragm
Chest x-ray 09/09/2024-minimal retrocardiac opacification possible atelectasis or pneumonia
CT chest 09/08/2024-no evidence for pulmonary embolism, bilateral lower lobe consolidation suspicious for pneumonia
CT head 09/08/2024- mild diffuse cerebral edema
Subjective Dataa
Subjective Data
Date of Service:
Date of Service: September 09, 2024
Chief Complaint: Instructional Technologist Follow Up, Pulmonary Follow Up and Vent Management Follow Up
Subjective:
patient spiked a temperature last evening, currently sedated on the ventilator, no increased secretions, unable to obtain review of systems
Review of Systems
General: Unobtainable - Sedation
Objective Data
Data Reviewed
Vital Signs / I&O / Oxygen:
Vital Signs
Temp Pulse Resp BP Pulse Ox
98.5 F 88 16 146/91 95
09/09/24 07:38 09/09/24 06:00 09/09/24 06:00 09/09/24 06:00 09/09/24 07:55
Intake and Output
09/08/24 09/09/24 09/10/24
06:59 06:59 06:59
Intake Total 1250 / 1250 1478.4 / 1478.4
Output Total 3100 / 3100 3380 / 3380
Balance -1850 / -1850 -1901.6 / -1901.6
SaO2 [A/C] 94
SaO2 95
Nasal Cannula flow liters per 2
minute
Physical Exam
General: Respiratory Distress (n) and Comfortable
HEENT: Normocephalic, Anicteric and Moist Mucous Membranes
Cardiovascular: Regular Rhythm
Respiratory: Wheeze (n), Crackles (n), Rhonchi (n), Non-Labored Respirations, Accessory Resp Muscle Use (n) and Stridor (n)
GI: Soft, Non Distended and Non Tender
Neurology: Lethargic ( sedated on the ventilator)
Skin: Warm, Good Color, Cyanosis, Jaundice (n), Rash and Bruising (n)
Labs/Micro/Reports
Lab Data
09/09/24 06:48
09/09/24 00:51
Laboratory Results
09/08/24 09/08/24 09/08/24
10:20 11:30 11:51
PT 14.1
INR 1.04
pH 7.15 L* 7.11 L*
pCO2 > 115 H* > 115 H*
pO2 395 H 111 H
HCO3 43.2 H* 40.3 H*
O2 Delivery Level Not Reportable
09/08/24
14:00
PT
INR
pH 7.63 H*
pCO2 33 L
pO2 125 H
HCO3 34.7 H
O2 Delivery Level
Microbiology
09/06/24 20:19 Feces/Stool Salmonella/Shigella Culture - Preliminary
Culture in Progress
09/06/24 20:19 Feces/Stool Campylobacter Culture - Preliminary
Culture in Progress
09/06/24 20:19 Feces/Stool Shiga Toxin Test - Final
No E. coli Shiga Toxin 1 or 2 detected.
09/06/24 20:19 Feces/Stool Stool Leukocytes - Final
09/08/24 15:50 Tracheal Aspirate Gram Stain - Preliminary
09/06/24 12:06 Blood/Venous Blood Culture - Preliminary
No Growth in 48 hours- Final report to follow
09/06/24 12:12 Blood/Venous Blood Culture - Preliminary
No Growth in 48 hours- Final report to follow
09/06/24 17:20 Urine Urine Culture - Final
NO GROWTH
09/06/24 20:19 Feces/Stool C. difficile GDH Antigen & Toxins - Final
Negative for toxigenic C.difficile
09/06/24 20:19 Feces/Stool - Final
Negative for Norovirus GI and GII.
[2024-09-09] MEDS: DETROL 2 MG TUBE (08:59)
[2024-09-09] MEDS: MIRALAX 17 GRAMS TUBE (08:59)
[2024-09-09] MEDS: DUPHALAC/CHRONULAC 20 GRAMS TUBE (08:59)
--- NOTE | 2024-09-09 09:00 | PTCARENOTE ---
pt on vent arousable , calm , mouthing words , currently on a SBT protocol tolerating well, NSR on monitor, pt mother at bedside rounds and was able to reach out to his specialist regarding his condition , states that it can be common for these
Sabas patients to have elevated CO2 levels , all physicians notified of information , Dr Russo did speak to the [facility] physician in care of Mr Mallory , plan for 3-[address] today then extubate depending on ABG results
[2024-09-09 09:10] LABS: B.E. 14.8 mmol/L; HCO3 36.8 mmol/L (21-28); O2 Saturation % 98.7 % (94-98); PCO2 35 mmHg (35-48); PO2 73 mmHg (83-108)
[2024-09-09 09:12] LABS: pH 7.63 (7.35-7.45)
[2024-09-09 09:13] LABS: Mean Corp Hgb Conc. 32.4 g/dL (33.0-37.0); Mean Corpuscular Hgb 30.3 pg (27.0-31.0); Mean Corpuscular Volume 93.4 fL (80.0-94.0); Platelet Count 145 10^3/uL (130-400); Red Blood Cell Count 3.96 10^6/uL (4.70-6.10); Red Cell Dist. Width 12.5 % (11.5-14.5); White Blood Cell Count 7.9 10^3/uL (4.8-10.8)
[2024-09-09] MEDS: SUBLIMAZE 100 IV (10:52)
[2024-09-09] MEDS: ZOSYN 50 IV ×3 (10:53→22:04)
[2024-09-09] MEDS: DIPRIVAN 100 IV (10:53)
[2024-09-09] MEDS: NON-FORMULARY ITEM 2 MG BUCCAL ×3 (10:55→17:35)
--- NOTE | 2024-09-09 10:55 | W.PN.NEURO.1 ---
Today's Communication / Plan
-
Await lamotrigine level
Hold Lamotrigine 200 mg twice daily until patient able to take by mouth
May discontinue order for MRI of brain as the patient has had marked improvement with decrease in CO2
Neuro Assessment/Plan
Assessment
The patient is a 18 year old male with PMH significant for Sabas Disease/leukodystrophy and Epilepsy who presents to ED on 09/06/2024 in the setting of a change in mental status presumed to be breakthrough seizure
Repeated CT of head compared with last neuroimaging in 2023 suggests bihemispheric edema diffusely
1. Epilepsy with possible breakthrough seizure in the setting of metabolic disturbance of unclear etiology; differential diagnosis includes lamotrigine toxicity, hyperammonemia
2. KAVYA with hyperkalemia
Plan
Await lamotrigine level
Hold Lamotrigine 200 mg twice daily until patient able to take by mouth
May discontinue order for MRI of brain as the patient has had marked improvement with decrease in CO2
We will follow, peripherally
Subjective/Objective
Subjective Data
Date of Service: September 09, 2024
Patient reports no current pain.
Objective Data
Vital Signs
Temp Pulse Resp BP Pulse Ox
36.9 C 96 13 146/91 96
09/09/24 07:38 09/09/24 09:06 09/09/24 09:06 09/09/24 06:00 09/09/24 09:06
Lab Results
09/09/24 09:02
09/09/24 00:51
PT 14.1 Sec (11.4-14.6) 09/08/24 11:30
INR 1.04 09/08/24 11:30
Sodium Cancelled 09/09/24 00:51
Potassium Cancelled 09/09/24 00:51
BUN Cancelled 09/09/24 00:51
Glucose Cancelled 09/09/24 00:51
Calcium Cancelled 09/09/24 00:51
Patient Allergies
cat dander Allergy (Verified 09/06/24 11:12)
Unknown
dog dander Allergy (Verified 09/06/24 11:12)
Unknown
grass pollen Allergy (Verified 09/06/24 11:12)
Unknown
horse dander Allergy (Verified 09/06/24 11:12)
Unknown
NSAIDS (Non-Steroidal Anti-Inflamma Allergy (Verified 09/06/24 17:41)
Avoids due to solitary kidney
tree and shrub pollen Allergy (Verified 09/06/24 11:12)
Unknown
Review of Systems
-
Unable to obtain full review of systems at this time due to: Patient Intubation
History Source: Patient
All other systems: Reviewed and negative
Physical Exam
-
General: Intubated and Appears Stated Age
Eyes: Round OU, Mamers Conjunctivae and No Ptosis
HEENT: Anicteric and Moist Mucous Membranes
Neck: Full Range of Motion
Respiratory: No Dyspnea
Cardiac: No JVD
Skin: Unremarkable
Extremities: No Clubbing, No Cyanosis and No Edema
Psych: Intact Judgement/Insight
Extended Neurological Exam
Attention Span & Concentration: Awake, Alert and Interactive
Memory: Unable to Assess
Tremor: Hand Tremor Absent and Head Tremor Absent
Involuntary Movement: None
Speech: Unable to Assess
Cranial Nerve II: Left Eye: Pupillary Size Unremarkable and Visual Shrestha Grossly Intact
Cranial Nerve II: Right Eye: Pupillary Size Unremarkable and Visual Shrestha Grossly Intact
Cranial Nerves III, IV, : Extraocular Movement: Grossly Intact
Cranial Nerve VII: Facial Symmetry: Normal Facial Symmetry
Cranial Nerve VIII: Hearing: Unremarkable Hearing to Normal Conversational Volume
Cranial Nerves IX, X: Palate Movement: Unable to Assess
Cranial Nerve XII: Tongue Protusion: Unable to Assess
Muscle Strength, Overall: Spontaneously Moves
Pronator Drift: Unable to Assess
Cold Sensation: Unable to Assess
Vibration Sensation: Unable to Assess
Gait & Station: Unable to Assess
Data Reviewed
-
EEG: Report Reviewed
Labs: Report Reviewed
Reviewed with: Physician
Old Records: Summarized
Past History
Past History
ED Past Medical History: Asthma, GERD, Seizures and Other (sabas dz, hypercarbia)
ED Past Surgical History: Orthopedic
Social History
Tobacco: Non-smoker
Alcohol: None
Drug: None
Personal: Single
Living: with family
Family History
Family History: Other (reviewed and non-contributory)
Medications
-
Medications:
Generic Name Dose Route Start Last Admin
Trade Name Freq PRN Reason Stop Dose Admin
Acetaminophen 650 mg 09/06/24 21:36
Acetaminophen 650 Mg Rectal Suppository RECTAL 10/04/24 21:35
Q4HPRN PRN
fever>100.4,headache,mild pain
Acetaminophen 650 mg 09/08/24 18:30 09/08/24 23:53
Acetaminophen 325 Mg Tablet TUBE 10/06/24 18:29 650 mg
Q4HPRN PRN Administration
headache,mild pain,fever>100.4
Enoxaparin Sodium 40 mg 09/08/24 18:00 09/08/24 16:59
Enoxaparin Sodium 40 Mg/0.4 Ml Syringe SC 10/06/24 17:59 40 mg
QPM ANDRES Administration
Fentanyl Citrate 50 mcg 09/08/24 12:13 09/08/24 16:58
Fentanyl (50 Mcg/Ml) 100 Mcg/2 Ml Ampul IV 09/22/24 12:12 50 mcg
Q80EWCM PRN Administration
see protocol
Protocol
Hydrocortisone Acetate 25 mg 09/08/24 08:30
Anusol Hc 25 Mg Rectal Suppository RECTAL 10/06/24 08:29
HSPRN PRN
if bleeding
Phenylephrine HCl 50 mg in 250 mls @ 0 mls/hr 09/08/24 12:45 09/08/24 12:28
Kd-Synephrine IV 250 mls
PER PROTOCOL ANDRES Administration
Protocol
Per Protocol
Propofol 1,000,000 mcg in 100 mls @ 0 mls/hr 09/08/24 15:00 09/09/24 10:53
Diprivan IV 100 mls
PER PROTOCOL ANDRES Administration
Protocol
Per Protocol
Fentanyl Citrate 1,000 mcg in 100 mls @ 0 mls/hr 09/08/24 16:30 09/09/24 10:52
Sublimaze IV 100 mls
PER PROTOCOL ANDRES Administration
Protocol
Per Protocol
Piperacillin Sod/Tazobactam Sod 3.375 gram in 50 mls @ 100 mls/hr 09/09/24 10:00 09/09/24 10:53
Zosyn IV 50 mls
Q6H ANDRES Administration
Lactulose 20 grams 09/08/24 13:00 09/09/24 08:59
Lactulose Solution (20 Grams/30 Ml) 30 Ml Cup TUBE 10/06/24 12:59 20 grams
DAILY ANDRES Administration
Lamotrigine 200 mg 09/06/24 20:00 09/08/24 11:52
Lamotrigine 100 Mg Tablet PO 10/04/24 19:59 Not Given
BID ANDRES
Lorazepam 1 mg 09/06/24 17:34
Lorazepam 2 Mg/Ml Vial IV 10/04/24 17:33
Q2HPRN PRN
seizure
Metoprolol Tartrate 2.5 mg 09/08/24 12:23
Metoprolol 5 Mg/5 Ml Vial IV 10/05/24 13:12
Q6HPRN PRN
palpitations, HR>120
Mirtazapine 30 mg 09/08/24 22:00 09/08/24 22:57
Mirtazapine 15 Mg Regular Release Tablet TUBE 10/06/24 21:59 30 mg
HS ANDRES Administration
Nicotine (Polacrilex 2 mg 09/06/24 19:45 09/09/24 10:55
) 2 Mg Lozenge - 1 BUCCAL 2 mg
Lozenge (2mg) Buccal Q2HPRN PRN Administration
nicotine cravings
Pantoprazole Sodium 40 mg 09/08/24 20:00 09/09/24 08:12
Pantoprazole Sodium 40 Mg/10 Ml Vial IV 10/06/24 19:59 40 mg
BID ANDRES Administration
Polyethylene Glycol 17 grams 09/09/24 08:00 09/09/24 08:59
Polyethylene Glycol Powder 17 Grams Packet TUBE 10/07/24 07:59 17 grams
DAILY ANDRES Administration
Sodium Chloride 0 flush 09/06/24 16:00
Sodium Chloride 0.9% (Flush) Syringe IV 10/04/24 15:59
PER PROTOCOL ANDRES
Sodium Chloride 0 ml 09/06/24 18:00
Sodium Chloride 0.9% (Preservative Free) 10 Ml Vial IV 10/04/24 17:59
PRN PRN
IV Lorazepam dilution
Protocol
Sodium Chloride 1 sprays 09/07/24 05:49 09/08/24 03:59
Sodium Chloride 0.65% Nasal [place] 45 Ml Bottle NASAL 10/05/24 05:48 1 sprays
QIDPRN PRN Administration
congestion
Sodium Chloride 10 ml 09/08/24 20:00 09/09/24 08:12
Sodium Chloride 0.9% (Preservative Free) 10 Ml Vial IV 10/06/24 19:59 10 ml
BID ANDRES Administration
Tolterodine Tartrate 2 mg 09/08/24 20:00 09/09/24 08:59
Tolterodine Tartrate 2 Mg Tablet TUBE 10/06/24 19:59 2 mg
BID ANDRES Administration
--- NOTE | 2024-09-09 11:14 | CM ---
Met with patient and mom Zenia
attended grand rounds
plan to extubate today
mom concerned with safety at home & transfers
discussed VN, mom also inquired about private aides
discussed calling [facility] to get information regarding aide assistance
PLAN: TBD, CM to follow for needs, VN vs acute rehab, await recommendations
--- NOTE | 2024-09-09 11:44 | W.PN.INTV ---
Documented by User: Diandra Stark MD, Resident 09/09/24 12:10
Today's Communication / Plan
Recommendations
Extubation and BiPAP support as needed
Continue Abx while awaiting cultures
Monitor for any improvement in mental status
Resume Lamictal once patient able to take oral meds
Speech eval once extubated
Assessment
-
Assessment:
18 year old male with a past medical history of Sabas disease diagnosed at age 12 presented to the hospital following a supposed seizure episode. The day prior to admission, patient underwent subluxation of the left hip at [facility]. While admitted
in the hospital, patient had worsening of mental status and difficulty with breathing. He was transferred to ICU due to unable to be put on BiPAP therapy and intensivists services were consulted.
Conditions present prior to admission:
Sabas disease
Asthma
GERD
Seizure disorder
Chronic constipation
Bilateral hip dysplasia
Plan:
#Hypercapnic Respiratory Failure secondary to Sabas disease vs seizure activity
-patient was put on ventilator support yesterday with settings at 14 rate, 450 TV, 5 PEEP, FiO2 30%, Peak flow 60L/min
-ventilation improved CO2 levels but patient alkalotic due to over ventilation
-ventilation rate reduced and patient ready to be extubated today as possible
-Follow ABG and extubate as possible
-Patient on CPAP therapy at home but not compliant as per mother, will try BiPAP again once extubated
-Improved mental status following improvement in hypercapnia
-EEG did not show any evidence of seizures
#Fever secondary to possible pneumonia
-CT chest showed bilateral lower lobe consolidation suspicious for pneumonia
-Patient spiked fever of up to 103F last night which resolved with supportive therapy
-Possibly due to aspiration pneumonia
-Was started on Zosyn
-Awaiting sputum and blood cultures
#Sabas disease with possible seizure activity
-Neurology following, input appreciated
-Dr. Chery discussed with Neurologist at [facility] regarding management
-Hypercapnia could be related to Sabas disease itself as it can cause decreased respiratory effort
-general anesthesia from recent surgery could have made his hypercapnia worse
-Lamictal 200mg held until patient can take PO meds
-Brain MRI possibly today depending on if patient is extubated
#Coffee Ground Emesis with mild anemia
-Hgb has been stable around 12 with no major drops
-continue Protonix
-GI were consulted and signed off
DVT prophylaxis- Lovenox
GI prophylaxis- Protonix (due to intubation and Sabas disease as patient is on omeprazole at home)
Diagnostic data:
CXR on admission:
1. Mild elevation of the right hemidiaphragm.
2. Moderate right convex curvature of the lower thoracic spine.
Abd Xray: Mild fecal material in the colon. No evidence of intestinal obstruction. New left hip superior dislocation.
L hip Xray: There is superior subluxation of the femur seen on frontal views, however this appears reduced on final lateral view. Consider additional frontal views of the left hip to ensure reduction.
CT brain 09/08/24AM: Suspect mild diffuse cerebral edema which could reflect underlying diffuse hypoxic-ischemic brain injury.
EEG 09/08/24: This study was suggestive of a generalized cortical dysfunction. The speed of the slowing demonstrated was not consistent with status epilepticus or ongoing nonconvulsive seizures.
CTA chest:
1. No evidence of pulmonary embolism.
2. Bilateral lower lobe consolidations suspicious for pneumonia, possibly aspiration related.
CXR 09/09/24:
1. Minimal retrocardiac opacity, which may be related to pneumonia or subsegmental atelectasis.
2. Otherwise clear lungs.
Subjective Dataa
Subjective Data
Date of Service:
Date of Service: September 09, 2024
Chief Complaint: Talent Acquisition Sourcer Follow Up
Subjective:
Patient seen this morning while on Ventilator support. As per nurse, did not have any adverse events overnight. Nurse spoke with patient's mother over the phone who says that as per patient's neurologist, Sabas disease patients can have
hypercapnia. No further changes noted.
Review of Systems
General: Unobtainable - Pat Unresp and Unobtainable - Sedation
Objective Data
Data Reviewed
Vital Signs / I&O / Oxygen:
Vital Signs
Temp Pulse Resp BP Pulse Ox
98.5 F 96 13 146/91 96
09/09/24 07:38 09/09/24 09:06 09/09/24 09:06 09/09/24 06:00 09/09/24 09:06
Intake and Output
09/08/24 09/09/24 09/10/24
06:59 06:59 06:59
Intake Total 1250 / 1250 1478.4 / 1478.4
Output Total 3100 / 3100 3380 / 3380
Balance -1850 / -1850 -1901.6 / -1901.6
SaO2 [A/C] 94
SaO2 96
Nasal Cannula flow liters per 2
minute
Physical Exam
General: Respiratory Distress and Other (Intubated/On Ventilator support)
HEENT: Normocephalic and Anicteric
Cardiovascular: S1-S2 and Regular Rhythm
Respiratory: Clear and ET Tube
GI: Soft, Non Distended and Non Tender
Neurology: Unresponsive, Lethargic and Other (Sedated and on Vent Support)
Skin: Warm and Dry
Labs/Micro/Reports
Lab Data
09/09/24 09:02
09/09/24 00:51
Laboratory Results
09/08/24 09/08/24 09/08/24
11:30 11:51 14:00
PT 14.1
INR 1.04
pH 7.11 L* 7.63 H*
pCO2 > 115 H* 33 L
pO2 111 H 125 H
HCO3 40.3 H* 34.7 H
O2 Delivery Level
09/09/24
09:02
PT
INR
pH 7.63 H*
pCO2 35
pO2 73 L
HCO3 36.8 H
O2 Delivery Level
Microbiology
09/06/24 20:19 Feces/Stool Salmonella/Shigella Culture - Preliminary
Culture in Progress
09/06/24 20:19 Feces/Stool Campylobacter Culture - Preliminary
Culture in Progress
09/06/24 20:19 Feces/Stool Shiga Toxin Test - Final
No E. coli Shiga Toxin 1 or 2 detected.
09/06/24 20:19 Feces/Stool Stool Leukocytes - Final
09/08/24 15:50 Tracheal Aspirate Gram Stain - Preliminary
09/06/24 12:06 Blood/Venous Blood Culture - Preliminary
No Growth in 48 hours- Final report to follow
09/06/24 12:12 Blood/Venous Blood Culture - Preliminary
No Growth in 48 hours- Final report to follow
09/06/24 17:20 Urine Urine Culture - Final
NO GROWTH
09/06/24 20:19 Feces/Stool C. difficile GDH Antigen & Toxins - Final
Negative for toxigenic C.difficile
09/06/24 20:19 Feces/Stool - Final
Negative for Norovirus GI and GII.
Care Review
-
Discussed with Clinician: Physician, Nurse and Respiratory Therapist

Documented by User: Frandy Gan MD 09/09/24 13:22
Assessment
-
Assessment:
18 year old male with a past medical history of Sabas disease diagnosed at age 12 presented to the hospital following a supposed seizure episode. The day prior to admission, patient underwent subluxation of the left hip at [facility]. While admitted
in the hospital, patient had worsening of mental status and difficulty with breathing. He was transferred to ICU due to unable to be put on BiPAP therapy and intensivists services were consulted.
Conditions present prior to admission:
Sabas disease
Asthma
GERD
Seizure disorder
Chronic constipation
Bilateral hip dysplasia
Plan:
#Hypercapnic Respiratory Failure secondary to Sabas disease vs seizure activity
-patient was put on ventilator support yesterday with settings at 14 rate, 450 TV, 5 PEEP, FiO2 30%, Peak flow 60L/min
-ventilation improved CO2 levels but patient alkalotic due to over ventilation
-ventilation rate reduced and patient ready to be extubated today as possible
-Follow ABG and extubate as possible
-Patient on CPAP therapy at home but not compliant as per mother, will try BiPAP again once extubated
-Improved mental status following improvement in hypercapnia
-EEG did not show any evidence of seizures
#Fever secondary to possible pneumonia
-CT chest showed bilateral lower lobe consolidation suspicious for pneumonia
-Patient spiked fever of up to 103F last night which resolved with supportive therapy
-Possibly due to aspiration pneumonia
-Was started on Zosyn
-Awaiting sputum and blood cultures
#Sbaas disease with possible seizure activity
-Neurology following, input appreciated
-Dr. Chery discussed with Neurologist at [facility] regarding management
-Hypercapnia could be related to Sabas disease itself as it can cause decreased respiratory effort
-general anesthesia from recent surgery could have made his hypercapnia worse
-Lamictal 200mg held until patient can take PO meds
-Brain MRI possibly today depending on if patient is extubated
#Coffee Ground Emesis with mild anemia
-Hgb has been stable around 12 with no major drops
-continue Protonix
-GI were consulted and signed off
DVT prophylaxis- Lovenox
GI prophylaxis- Protonix (due to intubation and Sabas disease as patient is on omeprazole at home)
I reviewed this patients case independently and in conjunction with the resident. I personally examined the patient. Patient's complex medical history, laboratory evaluations, events over the last 24 hours, radiographs, microbiological data were
all personally reviewed.
Agree with documented assessment and plan
Frandy Gan MD, [facility], [facility]
Diagnostic data:
CXR on admission:
1. Mild elevation of the right hemidiaphragm.
2. Moderate right convex curvature of the lower thoracic spine.
Abd Xray: Mild fecal material in the colon. No evidence of intestinal obstruction. New left hip superior dislocation.
L hip Xray: There is superior subluxation of the femur seen on frontal views, however this appears reduced on final lateral view. Consider additional frontal views of the left hip to ensure reduction.
CT brain 09/08/24AM: Suspect mild diffuse cerebral edema which could reflect underlying diffuse hypoxic-ischemic brain injury.
EEG 09/08/24: This study was suggestive of a generalized cortical dysfunction. The speed of the slowing demonstrated was not consistent with status epilepticus or ongoing nonconvulsive seizures.
CTA chest:
1. No evidence of pulmonary embolism.
2. Bilateral lower lobe consolidations suspicious for pneumonia, possibly aspiration related.
CXR 09/09/24:
1. Minimal retrocardiac opacity, which may be related to pneumonia or subsegmental atelectasis.
2. Otherwise clear lungs.
[2024-09-09] MEDS: TYLENOL 650 MG TUBE (11:53)
[2024-09-09 12:59] LABS: HCO3 38.4 mmol/L (21-28); O2 Saturation % 99.3 % (94-98); PCO2 46 mmHg (35-48); PO2 125 mmHg (83-108); pH 7.53 (7.35-7.45)
--- NOTE | 2024-09-09 13:00 | PTCARENOTE ---
pt was extubated as ordered , pt is alert and oriented off vent , he is requesting to eat, speech therapy to be consulted prior to diet order
--- NOTE | 2024-09-09 14:37 | PN.CDI ---
CDI
- -
CDI:
Physician Documentation Request
Admit Date: 09/06/24 14:54
Dear Doctor Vanessa,
Patient arrived to ED after being found in a postictal state and to be hypoxic with sats of 78%
Patient was intubated on 09/08. CT chest done prior to intubation impression reads 'Bilateral lower lobe consolidations suspicious for pneumonia, possibly aspiration related.'
Solid Glass Rod Dowel Machine Operator consult and on 09/09 progress notes include 'fever secondary to possible pneumonia
T max between 09/08 & 09/09 103.2
Heart rates 82-143, respiratory rates 9-27, wbc
Laboratory Tests
09/08/24 09/09/24
05:54 06:48
WBC 7.8 8.3
Please clarify which most accurately describes the patient:
Sepsis
Systemic manifestations of infection, with 2 or more SIRS criteria which include:
Fever > 100.4 degrees F or hypothermia < 96.8 degrees F
Leukocytosis - WBC > 12,000 or leukopenia, WBC < 4,000 or > 10% bands
Tachycardia - > 90 beats per minute
Tachypnea - RR > 20 breaths per minute or PaCO2 < 32 mmHg
Source: Merck Manual 2013
SIRS due to a non-infectious source
Indicate the known or suspected etiology
Indicate if there is associated organ dysfunction
Other
Use of terms such as suspected, likely, concern for, or probable (associated with a specific diagnosis that is being evaluated, monitored, or treated as if it exists) are acceptable and can be coded in the inpatient setting, when documented at the
time of discharge.
Thank you,
Gi Wyatt RN, BSN
CDI Specialist
tiger text
Please use your independent medical judgment in providing your response.
--- NOTE | 2024-09-09 15:50 | PTOTSP ---
Speech Language Pathology
Pt seen for clinical bedside swallow evaluation. No difficulty swallowing at baseline per pt/father. P.O. trials of jello, regular solids, and thin liquids provided. Adequate mastication, bolus formation, and A-P transit noted with no oral
residue. After first ice chip and 2 sips of liquids, cough noted with pt expectorating thick bill secretions. Suspect liquid loosened up dried secretions. No further coughing noted.
Recommend:
(1) Regular solids/thin liquids
(2) General aspiration precautions
(3) Meds as tolerated
(4) SALES PROMOTION DIRECTOR to continue to follow
[2024-09-09] MEDS: NICODERM TRANSDERMAL 7 MG TRANSDERM (16:59)
[2024-09-09] MEDS: LOVENOX 40 MG SC (16:59)
--- NOTE | 2024-09-09 18:59 | PTCARENOTE ---
pt tolerated diet with good appetite , no complaints, 02 sat on 2L NC 98%
[2024-09-09] MEDS: LAMICTAL 200 MG PO (20:08)
[2024-09-09] MEDS: REMERON 30 MG PO (22:04)
--- NOTE | 2024-09-09 22:20 | PTCARENOTE ---
Received patient AAOx3, following commands, denying pain. ST 110s, normothermic, BP stable. Trace b/l LE edema, weak pedal pulses. On 2 liters nasal cannula saturating 96%, lung sounds diminished throughout. Abdomen soft, round, positive bowel
sounds. Straight cathed for 850 mls, clear yellow urine. Nicotine patch on CHICO. PIVs patent, WNL. Call mcpherson within reach.
[2024-09-10] VITALS (34 sets, daily range): BP systolic 93–141; BP diastolic 54–107; PULSE 3–96; BMI 21.6
[2024-09-10] MEDS: MELATONIN 5 MG PO (00:45)
--- NOTE | 2024-09-10 01:53 | PTCARENOTE ---
Patient assessment unchanged from previous, melatonin given. Call mcpherson within reach.
[2024-09-10] MEDS: ZOSYN 50 IV ×4 (04:51→22:40)
[2024-09-10] MEDS: TYLENOL 650 MG PO (05:05)
--- NOTE | 2024-09-10 05:22 | PTCARENOTE ---
Patient reported headache, tylenol given. Straight cathed for 900 ml, urine sent. Call mcpherson within reach.
[2024-09-10 05:28] LABS: Hematocrit 36.3 % (39.0-52.0); Hemoglobin 11.5 g/dL (13.0-18.0); Mean Corp Hgb Conc. 31.7 g/dL (33.0-37.0); Mean Corpuscular Hgb 30.2 pg (27.0-31.0); Mean Corpuscular Volume 95.3 fL (80.0-94.0); Mean Platelet Volume 8.8 fL (7.4-10.4); Platelet Count 136 10^3/uL (130-400); Red Blood Cell Count 3.81 10^6/uL (4.70-6.10); White Blood Cell Count 8.7 10^3/uL (4.8-10.8)
[2024-09-10 06:00] LABS: Blood Urea Nitrogen 12 mg/dl (9-20); Calcium 8.4 mg/dl (8.4-10.2); Carbon Dioxide 35 mmol/L (22-30); Chloride 103 mmol/L (98-107); Estimated Creatinine Clearance > 125 ml/min; Glucose 101 mg/dl (70-99); Sodium 145 mmol/L (135-145); eGFR > 60.00
[2024-09-10 06:06] LABS: Urine Albumin 2+ (Neg - Trace); Urine Bilirubin Negative (Negative); Urine Character Slightly Cloudy (Clear); Urine Color Yellow; Urine Glucose Negative (Negative); Urine Ketone Negative (Negative); Urine Leukocyte 3+ (Negative); Urine Nitrite Negative (Negative); Urine Occult Blood 2+ (Negative); Urine Urobilinogen Negative (Neg - 1+)
[2024-09-10 06:46] LABS: Urine Squamous Cell SEEN /LPF (Few)
[2024-09-10 06:47] LABS: Urine Amorphous Seen; Urine Bacteria Many (Negative); Urine White Cell >100 /HPF (0-5)
--- NOTE | 2024-09-10 08:26 | W.PN.INTV ---
Today's Communication / Plan
Recommendations
Continuous NIV
Continue Abx
Hold PO meds for now until mentation improves
Serial blood gases to assure pH + pCO2 remained stable
If Lamictal is held for >3-4 days, then will need to resume at a lower dose to prevent Laughlin-Piyush syndrome
Speech eval once off continuous NIV with low risk for aspiration
Continue ICU level care for this critically ill patient now on continuous noninvasive ventilation with high risk for further deterioration and need for intubation.
Assessment
-
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 He had a procedure the day prior to admission at [facility] for subluxation of the left hip. He had progressive mental status
changes, possible recurrent seizure here in the hospital and was transferred to ICU for impending respiratory failure-fill plant operator consulted for ventilator/respiratory failure/seizure/critical care management 09/08/2024.
Mental status changes secondary to hypercapnia possible underlying seizure
Seizures suspected-neurology does not believe he had a seizure event
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
Intubated 09/08/2024
Extubated 09/09/2024
Coffee-ground emesis
Aspiration pneumonia
KAVYA � resolved
Hyperkalemia � resolved
Mild anemia-hemoglobin 12.3
Conditions present prior to admission:
Sabas disease.
Asthma.
GERD.
Seizure disorder.
Chronic constipation
Bilateral hip dysplasia
Plan
Patient has worsening acute hypercapnia and is now on continuous BiPAP
Transition to noninvasive ventilator
Titrate FiO2 to keep SpO2 >90-94%
Serial blood gases to assure pH + pCO2 remained stable, with a goal pH >7.25�7.3
At home he uses CPAP 8 cmH2O due to KIKO-consideration towards conversion to BiPAP 14/8 cm-follows with Dr. Gan in the outpatient setting locally and at [facility]
Continue aspiration precautions
Nebulizers if needed-currently not bronchospastic as of 09/10
Hold all PO meds for now, and transition to IV if possible; if Lamictal is held for >3-4 days, then will need to resume at a lower dose to prevent SJS
Cultures reviewed
Sputum culture from 09/08/2024 is now growing MRSA
Follow-up blood cultures (collected 09/09/2024 - NGTD); urine culture checked today (09/10)
IV vancomycin started today (09/10)
Continue Zosyn as well
Trend WBC and monitor fever curve
Neurology evaluation ongoing-do not believe this was a seizure
Neurology at [facility] states that occasionally Sabas syndrome patients can have CO2 retention-may have been triggered by anesthesia event Thursday at [facility] for hip dysplasia
EEG on 09/08/2024 without acute seizure, and showed generalized cortical dysfunction
CT head summarized below
Defer obtaining brain MRI to neurology
Follow hemoglobin
Transfuse as needed to keep Hb >7 g/dL
No evidence for further gastrointestinal bleeding
Replete K >4, Mg>2
Monitor renal function
DVT prophylaxis: LMWH
GI prophylaxis - on PPI 40mg IV BID
Nutrition
Early mobilization
Dr. Gan previous reviewed case with mother at the bedside several times 09/08/2024 and was present during multidisciplinary rounds 09/09/2024-she spoke at length about his Sabas syndrome, excellent care at [facility], potential trials in the future
Dr. Barakat reviewed the case with the patient's brother, Obed, today at bedside (09/10)
Continue ICU level care for this critically ill patient now on continuous noninvasive ventilation with high risk for further deterioration and need for intubation.
Critical care statement: A total of 41 minutes of critical care time was provided for this patient today. This includes management of unstable vital signs, evaluation of the patient at bedside, reviewing the patient's pertinent medical records
including radiographs, management of ventilator, pressors, sedationmicrobiology, laboratory evaluations, and discussion with primary team, consultants, pharmacy, nutrition, physical therapy, case management, charge nurse, critical care nursing,
and respiratory therapy.
Diagnostic data:
Chest x-ray 09/06/24-mild elevation right hemidiaphragm
Chest x-ray 09/09/2024-minimal retrocardiac opacification possible atelectasis or pneumonia
CT chest 09/08/2024-no evidence for pulmonary embolism, bilateral lower lobe consolidation suspicious for pneumonia
CT head 09/08/2024- mild diffuse cerebral edema
Subjective Dataa
Subjective Data
Date of Service:
Date of Service: September 10, 2024
Chief Complaint: Child Welfare Director Follow Up, Pulmonary Follow Up and Vent Management Follow Up
Subjective:
Patient seen and evaluated today at bedside. Worsening hypercapnia. Was on BiPAP when I saw him on 14/8 cmH2O with VTe 130�160 mL. VTe improved to about 200mL when EPAP lowered to 5 cmH2O. He does awaken but then quickly falls back asleep and is
lethargic. Patient's brother, Obed, present at bedside and all questions were answered. Patient's BiPAP is bled with 10 L/min and he is saturating 96%.
Review of Systems
General: Other (Unobtainable - altered mental status/lethargy)
Objective Data
Data Reviewed
Vital Signs / I&O / Oxygen:
Vital Signs
Temp Pulse Resp BP Pulse Ox
98.2 F 88 20 126/81 95
09/10/24 10:51 09/10/24 10:30 09/10/24 10:30 09/10/24 10:00 09/10/24 10:30
Intake and Output
09/09/24 09/10/24 09/11/24
06:59 06:59 06:59
Intake Total 1478.4 / 1491.6 702.8 / 702.8
Output Total 3380 / 3380 2850 / 2850
Balance -1901.6 / -1888.4 -2147.2 / -2147.2
SaO2 [CPAP/PSV] 96
SaO2 [A/C] 94
SaO2 95
Nasal Cannula flow liters per 3
minute
Physical Exam
General: Respiratory Distress (n) and Comfortable
HEENT: Normocephalic, Anicteric, Moist Mucous Membranes and Other (Full face mask on patient with good seal)
Cardiovascular: S1-S2 and Peripheral Edema (Trace lower extremity edema bilaterally)
Respiratory: Wheeze (n), Crackles (Bilateral), Rhonchi (n), Non-Labored Respirations, Accessory Resp Muscle Use (n), Stridor (n) and Other (Diminished breath sounds bilaterally)
GI: Soft, Non Distended and Non Tender
Neurology: Lethargic (sedated on BiPAP)
Skin: Warm, Dry, Jaundice (n) and Bruising (n)
Labs/Micro/Reports
Lab Data
09/10/24 04:58
09/10/24 04:58
Laboratory Results
09/09/24 09/10/24
12:47 09:26
pH 7.53 H 7.29 L
pCO2 46 85 H*
pO2 125 H 99
HCO3 38.4 H 40.9 H*
O2 Delivery Level
Microbiology
09/08/24 15:50 Tracheal Aspirate Respiratory Culture - Preliminary
Staph aureus MRSA
09/08/24 15:50 Tracheal Aspirate Gram Stain - Preliminary
09/09/24 00:21 Blood/Venous Blood Culture - Preliminary
No Growth in 24 hours- Final report to follow
09/09/24 00:15 Blood/Venous Blood Culture - Preliminary
No Growth in 24 hours- Final report to follow
09/06/24 20:19 Feces/Stool Salmonella/Shigella Culture - Final
No Salmonella, Shigella, Aeromonas or Plesiomonas species
isolated.
09/06/24 20:19 Feces/Stool Campylobacter Culture - Final
No Campylobacter species isolated.
09/06/24 20:19 Feces/Stool Shiga Toxin Test - Final
No E. coli Shiga Toxin 1 or 2 detected.
09/06/24 20:19 Feces/Stool Stool Leukocytes - Final
09/06/24 12:06 Blood/Venous Blood Culture - Preliminary
No Growth in 72 hours- Final report to follow
09/06/24 12:12 Blood/Venous Blood Culture - Preliminary
No Growth in 72 hours- Final report to follow
09/06/24 17:20 Urine Urine Culture - Final
NO GROWTH
09/06/24 20:19 Feces/Stool C. difficile GDH Antigen & Toxins - Final
Negative for toxigenic C.difficile
09/06/24 20:19 Feces/Stool - Final
Negative for Norovirus GI and GII.
--- NOTE | 2024-09-10 08:55 | PTCARENOTE ---
Assumed care of pt at 0715 following shift report. Pt resting quietly w/ eyes closed. No distress. No running IVs. Remains in NSR 90's. Physical assessment completed at 0830. Pt denies c/o pain. Denies SOB but admits breathing feels 'a little weak'
. Pt's POx noted to be labile- dropping into 70's and recovering to 90 before dropping again. RR 12-15. Respirations shallow. Pt alert but slightly drowsy. O2 applied at 2l/min w/ POx improved to 97%. TT to resp therapy to place pt back on
previously ordered BiPap and to draw ABGs. TT to Kev Barakat and Joe updating on assessment findings including Pox, RR, LOC.
[2024-09-10 09:32] LABS: B.E. 11.2 mmol/L; O2 Saturation % 98.8 % (94-98); PO2 99 mmHg (83-108); pH 7.29 (7.35-7.45)
[2024-09-10 09:35] LABS: HCO3 40.9 mmol/L (21-28); PCO2 85 mmHg (35-48)
--- NOTE | 2024-09-10 09:45 | PTCARENOTE ---
Harrison Barakat and Joe notified of ABG results and sputum culture + MRSA. Pt placed on contact isolation. Pt resting quietly and appears comfortable on BiPap 14/8 w/ 2l/min O2, POx 95%.
--- NOTE | 2024-09-10 09:47 | W.PN.HOSP.TC ---
Today's Communication/Plan
-
see bold
Assessment / Plan
Assessment / Plan
Gen: NAD, NCAT, appears chronically ill
Eyes: EOMI, PERRLA, no scleral icterus.
Neck: supple.
CV: RRR, +S1/S2, no m/r/g.
Resp: continues to remain CTAB anteriorly, no rales, wheezes, or rhonchi.
Abd: continues to remain +BS, soft, NT, ND
Skin: No rashes.
Neuro: CN2-12 intact
CXR on admission:
1. Mild elevation of the right hemidiaphragm.
2. Moderate right convex curvature of the lower thoracic spine.
Abd Xray: Mild fecal material in the colon. No evidence of intestinal obstruction. New left hip superior dislocation.
L hip Xray: There is superior subluxation of the femur seen on frontal views, however this appears reduced on final lateral view. Consider additional frontal views of the left hip to ensure reduction.
CT brain 09/08/24AM: Suspect mild diffuse cerebral edema which could reflect underlying diffuse hypoxic-ischemic brain injury.
EEG 09/08/24: This study was suggestive of a generalized cortical dysfunction. The speed of the slowing demonstrated was not consistent with status epilepticus or ongoing nonconvulsive seizures.
CTA chest:
1. No evidence of pulmonary embolism.
2. Bilateral lower lobe consolidations suspicious for pneumonia, possibly aspiration related.
CXR 09/09/24:
1. Minimal retrocardiac opacity, which may be related to pneumonia or subsegmental atelectasis.
2. Otherwise clear lungs.
Acute seizure activity:
-underlying seizure disorder
-Lamictal increased to 200mg BID, initial Lamictal level normal
-initial EEG unremarkable for age (as well as repeat EEG)
-see below. The patient's seizure on admission could have been caused/exacerbated by acute hypercapnic respiratory failure
Acute hypoxemic and hypercapnic respiratory failure:
-FISCAL SERVICES MANAGER called 09/08/24 for acute change in mental status and hypoxemia. As pt without tonic-clonic activity Ativan not given during FISCAL SERVICES MANAGER. EEG did not show seizure activity, CT brain showed mild diffuse cerebral edema which could reflect underlying
diffuse hypoxic�ischemic brain injury. AB.15/115/395 and the patient was intubated after failing BiPAP.
-CTA chest above, notable for no PE and B/L LL consolidations
-Neurology discussed the case with the patient's neurologist at [facility] on 09/09/24. 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 The patient had orthopedic surgery just prior to admission. It is likely that the anesthesia worsened and/or
instigated acute hypercapnic respiratory failure.
-extubated 09/09/24
-this AM pt desaturating and ABG with worsening hypercapnia. Placed on BIPAP. Recheck ABG in 1 hour.
Sepsis due to PNA:
-cont Zosyn, start Vanco as MRSA POS
-repeat CXR today
Coffee ground emesis:
-on further oral exam small tongue lac noted
-cont Protonix 40mg BID
-Hb stable compared to prior (Feb 2023, July 2023). Current drop likely dilutional.
-GI saw in c/s
KAVYA:
-with hyperkalemia, now resolved
-KAVYA resolved with IVFs
Tachycardia:
-CTA chest NEG for PE
-improved
Other problems:
Hypomagnesemia: s/p 2g IV Mg
Sabas disease/leukodystrophy
Neurogenic bladder
Solitary kidney
FULL/Lovenox
Total critical care time spent = 36 min
Anticipated Discharge: > 48 hours
Subjective/Interval History
-
Date of Service: September 10, 2024
Patient currently on BiPAP. Due to being on BiPAP and overall weakness subjective history is not obtainable at this time. As per nursing, her impression was that he was too weak to take deep breaths.
Objective Data
-
Labs:
Laboratory Results
09/10/24 09/10/24
04:58 09:26
WBC 8.7
Hgb 11.5 L
Hct 36.3 L
Plt Count 136
HCO3 40.9 H*
Sodium 145
Potassium 4.0
Chloride 103
Carbon Dioxide 35 H
BUN 12
Creatinine 0.9
Glucose 101 H
Calcium 8.4
Vital Signs:
Vital Signs
Temp Pulse Resp BP Pulse Ox
98.2 F 86 16 141/80 93
09/10/24 07:21 09/10/24 06:00 09/10/24 06:00 09/10/24 06:00 09/09/24 20:45
I&O
09/09/24 09/10/24 09/11/24
06:59 06:59 06:59
Intake Total 1478.4 / 1491.6 702.8 / 702.8
Output Total 3380 / 3380 2850 / 2850
Balance -1901.6 / -1888.4 -2147.2 / -2147.2
[2024-09-10] MEDS: NICODERM TRANSDERMAL 7 MG TRANSDERM (10:04)
[2024-09-10] MEDS: PROTONIX IV 40 MG IV ×2 (10:04→19:48)
[2024-09-10] MEDS: NSS (PRESERVATIVE FREE) 10 ML IV ×2 (10:04→19:49)
--- NOTE | 2024-09-10 10:11 | PHA.VAN.IN ---
Assessment
- Assessment
Renal Function: Appears similar to baseline
Concomitant Antimicrobials: piperacillin/tazo
AUC Dosing Plan
- Dosing Variables
Dosing Weight (kg): 69
Dosing CrCl (ml/min): 125
Vd coefficient (L/kg): 0.7
- Empiric Dosing
Initial / Loading Dose: 750 mg x 1 now (~1100) and start 750 mg q8h at 1400 mg in lieu of LD
Maintenance Regimen: 750 mg q8h
Estimated AUC (mcg*h/mL): 454
Estimated Peak (mcg*h/mL): 26.8
Estimated Trough (mcg/ml): 12.6
Estimated Half Life (H): 6.4
- Monitoring
No levels ordered at this time: consider levels after 2200 dose Sun bob ( 6th dose)
Pharmacokinetics Vancomycin I
- -
Patient Age: 18
Patient Sex: Male
Vancomycin Day #: 1
Indication: Pulmonary/Respiratory
Requesting Provider: Joe
Pertinent Antimicrobial Allergies:
NSAIDS; No known antimicrobial allergies
Height / Weight:
Height 5 ft 10.5 in
Actual Weight 69.3 kg
Pertinent Past Medical History: wheelchair bound (hx Avis disease); solitary kidney
- Vital Signs / Lab Results
Temp Pulse Resp BP Pulse Ox
98.2 F 86 16 141/80 93
09/10/24 07:21 09/10/24 06:00 09/10/24 06:00 09/10/24 06:00 09/09/24 20:45
Lab Results - Hematology
09/08/24 09/09/24 09/09/24
05:54 06:48 09:02
WBC 7.8 8.3 7.9
09/10/24
04:58
WBC 8.7
Lab Results - Chemistry
09/08/24 09/09/24 09/09/24
05:54 00:02 00:51
BUN 19 17 Cancelled
Creatinine 0.9 0.9 Cancelled
Estimated Creat Clear 122 > 125 Cancelled
Albumin Cancelled
09/10/24
04:58
BUN 12
Creatinine 0.9
Estimated Creat Clear > 125
Albumin
09/09/24
00:01
Lactic Acid 1.2
Lab Results - Urine
09/10/24
05:04
Urine Nitrite (Reflex) Negative
Leukocyte Esterase Rfl 3+ A
Urine WBC (Reflex) >100 A
Ur Squamous Epith Cells Seen
Urine Bacteria (Reflex) Many A
Microbiology Results
09/08/24 15:50 Respiratory Culture - Preliminary
Tracheal Aspirate Staph aureus MRSA
Gram Stain - Preliminary
09/09/24 00:21 Blood Culture - Preliminary
Blood/Venous No Growth in 24 hours- Final report to follow
09/09/24 00:15 Blood Culture - Preliminary
Blood/Venous No Growth in 24 hours- Final report to follow
09/06/24 20:19 Salmonella/Shigella Culture - Final
Feces/Stool No Salmonella, Shigella, Aeromonas or Plesiomonas species
isolated.
Campylobacter Culture - Final
No Campylobacter species isolated.
Shiga Toxin Test - Final
No E. coli Shiga Toxin 1 or 2 detected.
Stool Leukocytes - Final
09/06/24 12:06 Blood Culture - Preliminary
Blood/Venous No Growth in 72 hours- Final report to follow
09/06/24 12:12 Blood Culture - Preliminary
Blood/Venous No Growth in 72 hours- Final report to follow
[2024-09-10] MEDS: VANCOCIN 150 IV ×3 (10:48→23:09)
[2024-09-10 11:05] LABS: B.E. 12.3 mmol/L; O2 Saturation % 98.7 % (94-98); PO2 106 mmHg (83-108); pH 7.31 (7.35-7.45)
[2024-09-10 11:12] LABS: PCO2 83 mmHg (35-48)
[2024-09-10 11:13] LABS: HCO3 41.8 mmol/L (21-28)
[2024-09-10 11:16] LABS: Lamotrigine (Lamictal) 3.5 ug/mL (3.0-15.0)
--- NOTE | 2024-09-10 11:44 | PTCARENOTE ---
Harrison Diaz and Yuval in room to see pt. BiPap settings adjusted by Dr Barakat- to order NIV for pt. Resp Therapy notified. Pt's brother here to visit. Updated on pt's present condition and plan of care. Pt was straight cathed at 1100 for 500ml
richa urine. Pt drowsy but arousable. No distress. No additional changes from previous assessment findings.
[2024-09-10] MEDS: LAMICTAL 200 MG PO (12:28)
[2024-09-10] MEDS: MIRALAX PO (12:31)
[2024-09-10] MEDS: DETROL LA 4 MG PO (13:57)
[2024-09-10] MEDS: NON-FORMULARY ITEM 2 MG BUCCAL (14:58)
[2024-09-10 15:04] LABS: B.E. 11.2 mmol/L; O2 Saturation % 99.2 % (94-98); PO2 200 mmHg (83-108)
[2024-09-10 15:08] LABS: HCO3 40.8 mmol/L (21-28); PCO2 83 mmHg (35-48)
--- NOTE | 2024-09-10 15:18 | PTCARENOTE ---
Pt remains on NIV-- More alert now,watching TV w/ brother in room. No distress. ABG results TT to Dr Bryan. NIV changes received and communicated to Resp Therapy.
[2024-09-10] MEDS: LOVENOX 40 MG SC (18:26)
[2024-09-10] MEDS: LAMICTAL PO (19:43)
--- NOTE | 2024-09-10 19:50 | PTCARENOTE ---
Received patient at 1900. Pt. currently awake, alert, and oriented. Resting in bed. Denies pain/discomfort. Afebrile. Heart rhythm sinus tachy. Blood pressure normotensive. Currently on NIV. Repeat ABG drawn by respiratory therapist. Awaiting
results. Lungs sound coarse. Abdomen round. Pt. requires straight catheterization. Skin as documented. Discussed plan of care with patient. Vital signs stable at this time.
[2024-09-10 19:52] LABS: B.E. 10.3 mmol/L; O2 Saturation % 99.5 % (94-98); PO2 137 mmHg (83-108); pH 7.27 (7.35-7.45)
[2024-09-10 20:02] LABS: HCO3 40.4 mmol/L (21-28); PCO2 88 mmHg (35-48)
[2024-09-10] MEDS: REMERON PO (22:35)
[2024-09-11] VITALS (21 sets, daily range): BP systolic 96–142; BP diastolic 51–96; BMI 20.5
--- NOTE | 2024-09-11 | PTCARENOTE ---
Pt. assessment unchanged. Remains on NIV. Vital signs stable at this time.
[2024-09-11 01:06] LABS: B.E. 10.3 mmol/L; HCO3 39.3 mmol/L (21-28); O2 Saturation % 99.6 % (94-98); PO2 119 mmHg (83-108); pH 7.31 (7.35-7.45)
[2024-09-11 01:07] LABS: PCO2 78 mmHg (35-48)
[2024-09-11] MEDS: ZOSYN 50 IV ×4 (03:13→21:25)
--- NOTE | 2024-09-11 04:00 | PTCARENOTE ---
Pt. assessment remains unchanged. AM labs drawn. Vital signs stable at this time.
[2024-09-11 04:10] LABS: B.E. 9.2 mmol/L; HCO3 37.4 mmol/L (21-28); O2 Saturation % 99.4 % (94-98); PO2 154 mmHg (83-108); pH 7.33 (7.35-7.45)
[2024-09-11 04:12] LABS: PCO2 71 mmHg (35-48)
[2024-09-11 04:19] LABS: Hematocrit 37.3 % (39.0-52.0); Hemoglobin 11.5 g/dL (13.0-18.0); Mean Corp Hgb Conc. 30.8 g/dL (33.0-37.0); Mean Corpuscular Hgb 30.2 pg (27.0-31.0); Mean Corpuscular Volume 97.9 fL (80.0-94.0); Mean Platelet Volume 8.5 fL (7.4-10.4); Platelet Count 132 10^3/uL (130-400); Red Blood Cell Count 3.81 10^6/uL (4.70-6.10); Red Cell Dist. Width 12.5 % (11.5-14.5); White Blood Cell Count 7.8 10^3/uL (4.8-10.8)
[2024-09-11 04:41] LABS: Blood Urea Nitrogen 13 mg/dl (9-20); Calcium 8.7 mg/dl (8.4-10.2); Carbon Dioxide 37 mmol/L (22-30); Chloride 100 mmol/L (98-107); Estimated Creatinine Clearance 109 ml/min; Glucose 77 mg/dl (70-99); Magnesium 1.7 mg/dl (1.6-2.3); Phosphorus 3.9 mg/dl (2.5-4.5); Potassium 4.2 mmol/L (3.5-5.1); Sodium 144 mmol/L (135-145); eGFR > 60.00
[2024-09-11] MEDS: VANCOCIN 150 IV ×3 (05:04→22:29)
[2024-09-11] MEDS: MAGNESIUM SULFATE 102 GRAMS IV (05:59)
--- NOTE | 2024-09-11 08:15 | PTCARENOTE ---
Assumed care of pt at 0715 following shift report. Pt drowsy but easily arousable to name. Denies c/o SOB or pain. Remains on NIV at ordered settings. Pox 100%. Physical assessment completed as documented. Comfort care/hygiene provided. Pt NPO at
this time until NIV removed. Call mcpherson remains w/in pt reach. Safe environment maintained.
--- NOTE | 2024-09-11 08:16 | W.PN.INTV ---
Today's Communication / Plan
Recommendations
Okay to take break from NIV and use with sleep or prn during the day due to increased WOB, or significant hypoxia
Titrate supplemental O2 to maintain SpO2 >90-94%
Continue Abx
Okay to resume PO meds
He is awake, alert and taking a break from NIV
Serial blood gases to assure pH + pCO2 remained stable
If Lamictal is held for >3-4 days, then will need to resume at a lower dose to prevent Laughlin-Piyush syndrome
HAZMAT TANKER DRIVER on board - last evaluated him on 09/09/2024 and cleared him for regular solids/thin liquids
Continue ICU level care while he remains dependent on noninvasive ventilation.
Assessment
-
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 He had a procedure the day prior to admission at [facility] for subluxation of the left hip. He had progressive mental status
changes, possible recurrent seizure here in the hospital and was transferred to ICU for impending respiratory failure-hosiery mender consulted for ventilator/respiratory failure/seizure/critical care management 09/08/2024.
Mental status changes secondary to hypercapnia with possible underlying seizure
Seizures suspected-although neurology does not believe he had a seizure event
Acute on chronic hypercapnic respiratory failure-reportedly can occur in patients with Sabas syndrome-potentially triggered by recent anesthesia/left hip subluxation prior to admission with PNA
Intubated 09/08/2024
Extubated 09/09/2024
Coffee-ground emesis
Aspiration pneumonia
KAVYA � resolved
Hyperkalemia � resolved
Mild anemia-hemoglobin 12.3
Conditions present prior to admission:
Sabas disease.
Asthma.
GERD.
Seizure disorder.
Chronic constipation
Bilateral hip dysplasia
Plan
Patient has worsening acute hypercapnia and as of 09/10 he was requiring continuous BiPAP --> due to poor VTe he was switched to NIV and his pCO2 has remained stable
No need to intubate at this time
Okay to give patient a break from an IV and okay to eat solids he is not tachypneic or severely hypoxic, continue with NIV with sleep or prn during the day
Titrate FiO2 to keep SpO2 >90-94%
Serial blood gases to assure pH + pCO2 remained stable, with a goal pH >7.25�7.3
At home he uses CPAP 8 cmH2O due to KIKO-consideration towards conversion to BiPAP 14/8 cm-follows with Dr. Gan in the outpatient setting locally and at [facility]
Continue aspiration precautions
Nebulizers if needed-currently not bronchospastic as of 09/10
Hold all PO meds for now, and transition to IV if possible; if Lamictal is held for >3-4 days, then will need to resume at a lower dose to prevent SJS (he received his dose today on 09/11)
Cultures reviewed
Sputum culture from 09/08/2024 is growing MRSA
MRSA swab is negative
Follow-up blood cultures (collected 09/09/2024 - NGTD); urine culture checked 09/10 - shows NGTD
IV vancomycin started on 09/10
Continue Zosyn as well
Trend WBC and monitor fever curve
Neurology evaluation ongoing-do not believe this was a seizure
Neurology at [facility] states that occasionally Sabas syndrome patients can have CO2 retention-may have been triggered by anesthesia event Thursday at [facility] for hip dysplasia
EEG on 09/08/2024 without acute seizure, and showed generalized cortical dysfunction
CT head summarized below - showed suspected mild diffuse cerebral edema which per neurology was likely due to his significant acute hypercapnic respiratory failure; now that he is awake, alert and oriented, no need for additional imaging (i.e. MRI
brain) at this time
Follow hemoglobin
Transfuse as needed to keep Hb >7 g/dL
No evidence for gastrointestinal bleeding currently
Replete K >4, Mg>2
Monitor renal function
DVT prophylaxis: LMWH
GI prophylaxis - on PPI 40mg IV BID
Nutrition
Early mobilization
Dr. Gan previously reviewed case with mother at the bedside several times 09/08/2024 and was present during multidisciplinary rounds 09/09/2024-she spoke at length about his Sabas syndrome, excellent care at [facility], potential trials in the future
Dr. Barakat reviewed the case with the patient's brother, Obed, at bedside on 09/10, and with the patient's mother on 09/11 and answered all questions.
Continue trending blood gases and continue ICU level care while he remains dependent on noninvasive ventilation.
Critical care statement: A total of 38 minutes of critical care time was provided for this patient today. This includes management of unstable vital signs, evaluation of the patient at bedside, reviewing the patient's pertinent medical records
including radiographs, management of ventilator, pressors, sedationmicrobiology, laboratory evaluations, and discussion with primary team, consultants, pharmacy, nutrition, physical therapy, case management, charge nurse, critical care nursing,
and respiratory therapy.
Diagnostic data:
Chest x-ray 09/06/24-mild elevation right hemidiaphragm
Chest x-ray 09/09/2024-minimal retrocardiac opacification possible atelectasis or pneumonia
CT chest 09/08/2024-no evidence for pulmonary embolism, bilateral lower lobe consolidation suspicious for pneumonia
CT head 09/08/2024- mild diffuse cerebral edema
Subjective Dataa
Subjective Data
Date of Service:
Date of Service: September 11, 2024
Chief Complaint: S3B Multi Sensor Operator Follow Up and Pulmonary Follow Up
Subjective:
Patient seen and evaluated today at bedside. BiPAP switched to NIV yesterday, and wore 15/5 cmH2O at 35% FiO2 overnight. He is awake + alert this morning and wants the mask off to take a break and also to try to eat something as he is very hungry.
Current VTe: Range between 210-310 mL and 21 breaths/min with PIP: 15 cmH2O. Patient's mother, Zenia, present at bedside and all questions were answered. Patient currently denies ISBELL, abdominal pain, nausea, fevers or chills.
Review of Systems
General: Other (Negative unless mentioned above)
Objective Data
Data Reviewed
Vital Signs / I&O / Oxygen:
Vital Signs
Temp Pulse Resp BP Pulse Ox
98.2 F 110 14 139/78 95
09/11/24 07:22 09/11/24 06:00 09/11/24 06:00 09/11/24 06:00 09/11/24 06:00
Intake and Output
09/10/24 09/11/24 09/12/24
06:59 06:59 06:59
Intake Total 702.8 / 702.8 700 / 700
Output Total 2850 / 2850 1950 / 1950
Balance -2147.2 / -2147.2 -1250 / -1250
SaO2 [CPAP/PSV] 96
SaO2 [A/C] 94
SaO2 95
Nasal Cannula flow liters per 3
minute
Physical Exam
General: Respiratory Distress (n) and Comfortable
HEENT: Normocephalic, Anicteric, Moist Mucous Membranes and Other (Full face mask on patient with good seal)
Cardiovascular: S1-S2 and Peripheral Edema (Trace lower extremity edema bilaterally)
Respiratory: Wheeze (n), Crackles (Bilateral), Rhonchi (n), Non-Labored Respirations, Accessory Resp Muscle Use (n), Stridor (n) and Other (Coarse breath sounds heard bilaterally)
GI: Soft, Non Distended and Non Tender
Neurology: Awake, Alert, Oriented and Tremors (n)
Skin: Warm, Dry, Jaundice (n) and Bruising (n)
Labs/Micro/Reports
Lab Data
09/11/24 03:58
09/11/24 03:58
Laboratory Results
09/10/24 09/10/24 09/10/24
10:54 14:54 19:46
pH 7.31 L 7.30 L 7.27 L
pCO2 83 H* 83 H* 88 H*
pO2 106 200 H 137 H
HCO3 41.8 H* 40.8 H* 40.4 H*
O2 Delivery Level
09/11/24 09/11/24
00:57 03:58
pH 7.31 L 7.33 L
pCO2 78 H* 71 H*
pO2 119 H 154 H
HCO3 39.3 H 37.4 H
O2 Delivery Level
Microbiology
09/08/24 15:50 Tracheal Aspirate Respiratory Culture - Final
Staph aureus MRSA
09/08/24 15:50 Tracheal Aspirate Gram Stain - Final
09/09/24 00:15 Blood/Venous Blood Culture - Preliminary
No Growth in 48 hours- Final report to follow
09/09/24 00:21 Blood/Venous Blood Culture - Preliminary
No Growth in 48 hours- Final report to follow
09/06/24 12:06 Blood/Venous Blood Culture - Preliminary
No Growth in 4 days- Final report to follow
09/06/24 12:12 Blood/Venous Blood Culture - Preliminary
No Growth in 4 days- Final report to follow
09/06/24 20:19 Feces/Stool Salmonella/Shigella Culture - Final
No Salmonella, Shigella, Aeromonas or Plesiomonas species
isolated.
09/06/24 20:19 Feces/Stool Campylobacter Culture - Final
No Campylobacter species isolated.
09/06/24 20:19 Feces/Stool Shiga Toxin Test - Final
No E. coli Shiga Toxin 1 or 2 detected.
09/06/24 20:19 Feces/Stool Stool Leukocytes - Final
[2024-09-11] MEDS: NICODERM TRANSDERMAL 7 MG TRANSDERM (08:41)
[2024-09-11] MEDS: PROTONIX IV 40 MG IV ×2 (08:42→20:00)
[2024-09-11] MEDS: NSS (PRESERVATIVE FREE) 10 ML IV ×2 (08:42→20:00)
--- NOTE | 2024-09-11 09:39 | W.PN.HOSP.TC ---
Today's Communication/Plan
-
see plan
Assessment / Plan
Assessment / Plan
Gen: remains NAD, NCAT, appears chronically ill
Eyes: EOMI, PERRLA, no scleral icterus.
Neck: supple.
CV: RRR, +S1/S2, no m/r/g.
Resp: CTAB anteriorly, no rales, wheezes, or rhonchi.
Abd: +BS, soft, NT, ND
Skin: No rashes.
Neuro: remains CN2-12 intact
CXR on admission:
1. Mild elevation of the right hemidiaphragm.
2. Moderate right convex curvature of the lower thoracic spine.
Abd Xray: Mild fecal material in the colon. No evidence of intestinal obstruction. New left hip superior dislocation.
L hip Xray: There is superior subluxation of the femur seen on frontal views, however this appears reduced on final lateral view. Consider additional frontal views of the left hip to ensure reduction.
CT brain 09/08/24AM: Suspect mild diffuse cerebral edema which could reflect underlying diffuse hypoxic-ischemic brain injury.
EEG 09/08/24: This study was suggestive of a generalized cortical dysfunction. The speed of the slowing demonstrated was not consistent with status epilepticus or ongoing nonconvulsive seizures.
CTA chest:
1. No evidence of pulmonary embolism.
2. Bilateral lower lobe consolidations suspicious for pneumonia, possibly aspiration related.
CXR 09/09/24:
1. Minimal retrocardiac opacity, which may be related to pneumonia or subsegmental atelectasis.
2. Otherwise clear lungs.
CXR 09/10/24: Since prior examination, the endotracheal tube has been discontinued. A nasogastric tube has been discontinued. No focal interstitial or airspace opacity to indicate pneumonia. The cardiac mediastinal margins are unremarkable. No
pneumothorax or pleural effusion.
Acute seizure activity:
-underlying seizure disorder
-Lamictal increased to 200mg BID, Lamictal level normal. Note some Lamictal doses have been missed.
-initial EEG unremarkable for age (as well as repeat EEG)
-see below. The patient's seizure on admission could have been caused/exacerbated by acute hypercapnic respiratory failure
Acute hypoxemic and hypercapnic respiratory failure:
-BUFFET WAITER/WAITRESS called 09/08/24 for acute change in mental status and hypoxemia. As pt without tonic-clonic activity Ativan not given during BUFFET WAITER/WAITRESS. EEG did not show seizure activity, CT brain showed mild diffuse cerebral edema which could reflect underlying
diffuse hypoxic�ischemic brain injury. AB.15/115/395 and the patient was intubated after failing BiPAP.
-CTA chest above, notable for no PE and B/L LL consolidations
-Neurology discussed the case with the patient's neurologist at [facility] on 09/09/24. 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 The patient had orthopedic surgery just prior to admission. It is likely that the anesthesia worsened and/or
instigated acute hypercapnic respiratory failure.
-extubated 09/09/24
-09/10/24 pt was desaturating and ABG had worsening hypercapnia. Placed on BIPAP.
-09/11/24: discussed with pulm. Will remove BIPAP and allow pt to eat.
Sepsis due to PNA:
-cont Zosyn/Vanco
-repeat CXR noted
Coffee ground emesis:
-on further oral exam small tongue lac noted
-cont Protonix 40mg BID
-Hb stable compared to prior (Feb 2023, July 2023). Current drop likely dilutional.
-GI saw in c/s
KAVYA:
-with hyperkalemia, now resolved
-KAVYA resolved with IVFs
Tachycardia:
-CTA chest NEG for PE
-improved
Other problems:
Hypomagnesemia, resolved
Sabas disease/leukodystrophy
Neurogenic bladder
Solitary kidney
FULL/Lovenox
Pt's mom updated at bedside.
Total critical care time spent = 31 min
Anticipated Discharge: > 48 hours
Subjective/Interval History
-
Date of Service: September 11, 2024
No new complaints.
Objective Data
-
Labs:
Laboratory Results
09/11/24 09/11/24
00:57 03:58
WBC 7.8
Hgb 11.5 L
Hct 37.3 L
Plt Count 132
HCO3 39.3 H 37.4 H
Sodium 144
Potassium 4.2
Chloride 100
Carbon Dioxide 37 H
BUN 13
Creatinine 1.0
Glucose 77
Calcium 8.7
Vital Signs:
Vital Signs
Temp Pulse Resp BP Pulse Ox
98.2 F 110 14 139/78 95
09/11/24 07:22 09/11/24 06:00 09/11/24 06:00 09/11/24 06:00 09/11/24 06:00
I&O
09/10/24 09/11/24 09/12/24
06:59 06:59 06:59
Intake Total 702.8 / 702.8 700 / 700
Output Total 2850 / 2850 1950 / 1950
Balance -2147.2 / -2147.2 -1250 / -1250
--- NOTE | 2024-09-11 09:45 | PHA.VAN.FU ---
Vancomycin Assessment / Plan
- Assessment
Renal Function: Stable (0.9-1.0)
WBC's are: Stable
In the past 24 hrs, patient has been: Afebrile
Concomitant Antimicrobials: pip/tazo
- Dosing Plan
Continue: vancomycin 750 mg q8h
- Monitoring Plan
Peak Level: 5 00:30 - after 6th dose
Trough Level: 09/12 05:30
- Follow Up
Pharmacy will continue to follow.
Vancomycin Follow UP
- -
Patient Age: 18
Patient Sex: Male
Vancomycin Day #: 2
Indication: Pulmonary/Respiratory
Requesting Provider: Joe
Pertinent Antimicrobial Allergies:
NSAIDS; No known antimicrobial allergies
Height / Weight:
Height 5 ft 10.5 in
Actual Weight 65.6 kg
Pertinent Past Medical History: wheelchair bound (hx Avis disease); solitary kidney
- Vital Signs / Lab Results
Temp Pulse Resp BP Pulse Ox
98.2 F 110 14 139/78 95
09/11/24 07:22 09/11/24 06:00 09/11/24 06:00 09/11/24 06:00 09/11/24 06:00
Lab Results - Hematology
09/09/24 09/09/24 09/10/24
06:48 09:02 04:58
WBC 8.3 7.9 8.7
09/11/24
03:58
WBC 7.8
Lab Results - Chemistry
09/09/24 09/09/24 09/10/24
00:02 00:51 04:58
BUN 17 Cancelled 12
Creatinine 0.9 Cancelled 0.9
Estimated Creat Clear > 125 Cancelled > 125
Albumin Cancelled
09/11/24
03:58
BUN 13
Creatinine 1.0
Estimated Creat Clear 109
Albumin
09/09/24
00:01
Lactic Acid 1.2
Microbiology Results
09/08/24 15:50 Respiratory Culture - Final
Tracheal Aspirate Staph aureus MRSA
Gram Stain - Final
09/09/24 00:15 Blood Culture - Preliminary
Blood/Venous No Growth in 48 hours- Final report to follow
09/09/24 00:21 Blood Culture - Preliminary
Blood/Venous No Growth in 48 hours- Final report to follow
09/06/24 12:06 Blood Culture - Preliminary
Blood/Venous No Growth in 4 days- Final report to follow
09/06/24 12:12 Blood Culture - Preliminary
Blood/Venous No Growth in 4 days- Final report to follow
09/06/24 20:19 Salmonella/Shigella Culture - Final
Feces/Stool No Salmonella, Shigella, Aeromonas or Plesiomonas species
isolated.
Campylobacter Culture - Final
No Campylobacter species isolated.
Shiga Toxin Test - Final
No E. coli Shiga Toxin 1 or 2 detected.
Stool Leukocytes - Final
[2024-09-11] MEDS: MIRALAX 17 GRAMS PO (10:52)
[2024-09-11] MEDS: DETROL LA 4 MG PO (10:52)
[2024-09-11] MEDS: LAMICTAL 200 MG PO ×2 (10:52→20:00)
--- NOTE | 2024-09-11 11:15 | PTCARENOTE ---
Pt's mom visiting at bedside. Updated on pt's present condition, plan of care. Dr Barakat in room to see pt. Order received to remove NIV and place on O2 via NC. Resp Therapy in room and removed NIV at 1045 and Pt placed on O2 at 2l/min w/ Pox
97-99%. Encouraged deep breathing/coughing w/ pt. Per Dr Bryan pt OK to eat regular diet. Mom providing food from home for pt and ordering from hospital menu. Straight cath completed w/o incident. No additional changes from previous assessment
findings.
[2024-09-11] MEDS: NON-FORMULARY ITEM 2 MG BUCCAL ×3 (12:43→20:03)
[2024-09-11 16:39] LABS: Venous Blood Gas B.E. 13.9 mmol/L (-4 to +4); Venous Blood Gas HCO3 43.2 mmol/L (22-27); Venous Blood Gas O2 Sat % 99.8 %; Venous Blood Gas pH 7.34 (7.32-7.43); Venous Blood Gas pO2 173 mmHg (30-50)
[2024-09-11 16:49] LABS: Venous Blood Gas pCO2 80 mmHg (35-48)
--- NOTE | 2024-09-11 17:00 | PTCARENOTE ---
Pt continues to rest quietly in bed. Pox 98-99% on O2 at 2l/min. Denies SOB. Visiting w/ mom. Awake and alert. VBG results TT to Dr Barakat- no new orders received. Pt reporting need to be straight cathed and expressed desire to straight cath
himself as he does independently at home. Pt's own supplies in room and pt assisted in straight cathing self w/o difficulty for 550ml clear yellow urine. Hygiene completed. No additional changes from previous assessment findings.
[2024-09-11] MEDS: LOVENOX 40 MG SC (18:11)
--- NOTE | 2024-09-11 20:00 | PTCARENOTE ---
Received pt resting in bed, AAOx3. Without complaints. SR/ST on tele, HR 90-110. BP 100-110s/60s-70s. Trace LE edema. SCDs maintained. Temp 99.0. On 2L NC, spo2 98%. Pt. had taken off O2 to wipe his face and O2 dipped to 85%. To wear NIV HS. Lungs
diminished throughout. He reports it is difficult to take deep breaths due to his Sabas disease. Encouraged DB as much as possible. Abd. slightly firm, pt reports feeling bloated and constipated. LBM about 4-5 days ago he reports. FOOD PRESERVATION SCIENTIST notified
- senna and colace ordered. + bowel sounds. Good appetite on regular diet. Pt. self straigth caths- 500ml clear yellow urine out. Call mcpherson in reach
[2024-09-11] MEDS: REMERON 30 MG PO (21:24)
[2024-09-11] MEDS: COLACE 100 MG PO (21:24)
[2024-09-11] MEDS: SENOKOT 17.2 MG PO (21:25)
[2024-09-12] VITALS (26 sets, daily range): BP systolic 95–141; BP diastolic 56–94; PULSE 101–110; O2SAT 98; BMI 21.5
[2024-09-12 01:33] LABS: Vancomycin Peak 36.7 ug/ml (18-26)
--- NOTE | 2024-09-12 02:27 | PTCARENOTE ---
Vanco peak resulted high - DOCK ATTENDANT notified. Will draw vanco level in AM as ordered and reassess.
Pt. placed on NIV ~2200. Been resting calmly. Was easily awakened around 0030 for blood draw. Pt. without complaints.
[2024-09-12] MEDS: ZOSYN 50 IV ×2 (04:39→09:45)
[2024-09-12 05:44] LABS: Venous Blood Gas B.E. 12.3 mmol/L (-4 to +4); Venous Blood Gas HCO3 42.3 mmol/L (22-27); Venous Blood Gas O2 Sat % 99.4 %; Venous Blood Gas pO2 173 mmHg (30-50)
--- NOTE | 2024-09-12 05:44 | PTCARENOTE ---
Pt. easily arousable throughout the night until now, he is less easily aroused. He flutters his eyes open but not sustained and is moaning when asked questions. ELDER ASSISTANT aware. VBG ordered with AM labs- drawn and sent. pCO2 86 - ELDER ASSISTANT notified. Remains
on NIV, spo2 95%.
[2024-09-12 05:47] LABS: Venous Blood Gas pCO2 86 mmHg (35-48)
[2024-09-12 05:51] LABS: Hematocrit 38.3 % (39.0-52.0); Hemoglobin 11.9 g/dL (13.0-18.0); Mean Corp Hgb Conc. 31.1 g/dL (33.0-37.0); Mean Corpuscular Volume 96.5 fL (80.0-94.0); Mean Platelet Volume 8.5 fL (7.4-10.4); Platelet Count 152 10^3/uL (130-400); Red Blood Cell Count 3.97 10^6/uL (4.70-6.10); Red Cell Dist. Width 12.4 % (11.5-14.5); White Blood Cell Count 7.5 10^3/uL (4.8-10.8)
[2024-09-12 06:20] LABS: Blood Urea Nitrogen 23 mg/dl (9-20); Calcium 8.4 mg/dl (8.4-10.2); Carbon Dioxide 39 mmol/L (22-30); Chloride 98 mmol/L (98-107); Estimated Creatinine Clearance 121 ml/min; Glucose 136 mg/dl (70-99); Magnesium 1.9 mg/dl (1.6-2.3); Phosphorus 4.1 mg/dl (2.5-4.5); Potassium 4.5 mmol/L (3.5-5.1); Sodium 145 mmol/L (135-145); eGFR > 60.00
[2024-09-12 06:30] LABS: Vancomycin Trough 20.5 ug/ml (5-20)
--- NOTE | 2024-09-12 06:32 | PTCARENOTE ---
Vanco trough level 20.5 - pharmacist notified. Reported OK to give scheduled 0600 dose of vanco.
[2024-09-12] MEDS: VANCOCIN 150 IV (06:34)
--- NOTE | 2024-09-12 07:49 | PHA.VAN.FU ---
Vancomycin Assessment / Plan
- Assessment
Renal Function: Stable
WBC's are: WNL
In the past 24 hrs, patient has been: Afebrile
Concomitant Antimicrobials: piperacillin/tazobactam
- Assessment - Therapeutic Drug Monitoring
Extrapolated Cmax (mcg/mL): 42.3
Peak level was drawn: Appropriately (drawn ~1.2H after end of previous infusion)
Extrapolated Cmin (mcg/mL): 18.4
Trough Drawn: Appropriately
Levels were drawn: At steady state (levels drawn after 6th maintenance dose)
Calculated AUC (mcg*h/mL): 694
Calculated ke: 0.1193
Calculated half life (H): 5.8
Calculated Vd (L): 27 (~0.4 L/kg)
Calculated Vanc CL (ml/min): 54
- Dosing Plan
Adjust Regimen to: Vanc 750mg Q12H starting at 1800
- Monitoring Plan
Trough Level: 5/6 05:30 - to ensure level decreasing
- Follow Up
Pharmacy will continue to follow.
Vancomycin Follow UP
- -
Patient Age: 18
Patient Sex: Male
Vancomycin Day #: 3
Indication: Pulmonary/Respiratory
Requesting Provider: Joe
Pertinent Antimicrobial Allergies:
No pertinent antibiotic allergies
Height / Weight:
Height 5 ft 10.5 in
Actual Weight 68.9 kg
Pertinent Past Medical History: Sabas disease (wheelchair bound); Solitary kidney
- Vital Signs / Lab Results
Temp Pulse Resp BP Pulse Ox
99 F 105 18 129/74 95
09/12/24 04:43 09/12/24 06:00 09/12/24 06:00 09/12/24 06:00 09/12/24 06:00
Lab Results - Hematology
09/09/24 09/09/24 09/10/24
06:48 09:02 04:58
WBC 8.3 7.9 8.7
09/11/24 09/12/24
03:58 05:34
WBC 7.8 7.5
Lab Results - Chemistry
09/10/24 09/11/24 09/12/24
04:58 03:58 05:34
BUN 12 13 23 H
Creatinine 0.9 1.0 0.9
Estimated Creat Clear > 125 109 121
Microbiology Results
09/09/24 00:21 Blood Culture - Preliminary
Blood/Venous No Growth in 72 hours- Final report to follow
09/09/24 00:15 Blood Culture - Preliminary
Blood/Venous No Growth in 72 hours- Final report to follow
09/10/24 13:56 MRSA Screen - Final
Nose No Methicillin Resistant Staphylococcus aureus isolated.
09/10/24 05:04 Urine Culture - Final
Urine No Significant Growth
09/06/24 12:06 Blood Culture - Final
Blood/Venous No Growth - Final Report
09/06/24 12:12 Blood Culture - Final
Blood/Venous No Growth - Final Report
09/08/24 15:50 Respiratory Culture - Final
Tracheal Aspirate Staph aureus MRSA
Gram Stain - Final
Therapeutic Drug Monitoring
Vancomycin Peak 36.7 ug/ml (18-26) H 09/12/24 00:41
Vancomycin Trough 20.5 ug/ml (5-20) H* 09/12/24 05:34
[2024-09-12] MEDS: NON-FORMULARY ITEM 2 MG BUCCAL ×3 (09:42→19:07)
[2024-09-12] MEDS: MIRALAX 17 GRAMS PO (09:43)
[2024-09-12] MEDS: NICODERM TRANSDERMAL 7 MG TRANSDERM (09:43)
[2024-09-12] MEDS: NSS (PRESERVATIVE FREE) 10 ML IV (09:44)
[2024-09-12] MEDS: PROTONIX IV 40 MG IV (09:44)
[2024-09-12] MEDS: COLACE 100 MG PO ×2 (09:44→19:14)
[2024-09-12] MEDS: LAMICTAL 200 MG PO ×2 (09:44→19:14)
[2024-09-12] MEDS: SENOKOT 17.2 MG PO ×2 (09:45→19:14)
[2024-09-12] MEDS: DETROL LA 4 MG PO (09:45)
--- NOTE | 2024-09-12 10:38 | W.PN.HOSP.TC ---
Today's Communication/Plan
-
see plan
Assessment / Plan
Assessment / Plan
Gen: remains NAD, NCAT, appears chronically ill
Eyes: EOMI, PERRLA, no scleral icterus.
Neck: supple.
CV: remains RRR, +S1/S2, no m/r/g.
Resp: remains CTAB anteriorly, no rales, wheezes, or rhonchi.
Abd: +BS, soft, NT, ND
Skin: No rashes.
Neuro: remains CN2-12 intact
09/09/24 00:21 Blood/Venous Blood Culture - Preliminary
No Growth in 72 hours- Final report to follow
09/09/24 00:15 Blood/Venous Blood Culture - Preliminary
No Growth in 72 hours- Final report to follow
09/10/24 13:56 Nose MRSA Screen - Final
No Methicillin Resistant Staphylococcus aureus isolated.
09/10/24 05:04 Urine Urine Culture - Final
No Significant Growth
09/06/24 12:06 Blood/Venous Blood Culture - Final
No Growth - Final Report
09/06/24 12:12 Blood/Venous Blood Culture - Final
No Growth - Final Report
09/08/24 15:50 Tracheal Aspirate Respiratory Culture - Final
Staph aureus MRSA
09/08/24 15:50 Tracheal Aspirate Gram Stain - Final
09/06/24 20:19 Feces/Stool Salmonella/Shigella Culture - Final
No Salmonella, Shigella, Aeromonas or Plesiomonas species
isolated.
09/06/24 20:19 Feces/Stool Campylobacter Culture - Final
No Campylobacter species isolated.
09/06/24 20:19 Feces/Stool Shiga Toxin Test - Final
No E. coli Shiga Toxin 1 or 2 detected.
09/06/24 20:19 Feces/Stool Stool Leukocytes - Final
09/06/24 17:20 Urine Urine Culture - Final
NO GROWTH
09/06/24 20:19 Feces/Stool C. difficile GDH Antigen & Toxins - Final
Negative for toxigenic C.difficile
09/06/24 20:19 Feces/Stool - Final
Negative for Norovirus GI and GII.
CXR on admission:
1. Mild elevation of the right hemidiaphragm.
2. Moderate right convex curvature of the lower thoracic spine.
Abd Xray: Mild fecal material in the colon. No evidence of intestinal obstruction. New left hip superior dislocation.
L hip Xray: There is superior subluxation of the femur seen on frontal views, however this appears reduced on final lateral view. Consider additional frontal views of the left hip to ensure reduction.
CT brain 09/08/24AM: Suspect mild diffuse cerebral edema which could reflect underlying diffuse hypoxic-ischemic brain injury.
EEG 09/08/24: This study was suggestive of a generalized cortical dysfunction. The speed of the slowing demonstrated was not consistent with status epilepticus or ongoing nonconvulsive seizures.
CTA chest:
1. No evidence of pulmonary embolism.
2. Bilateral lower lobe consolidations suspicious for pneumonia, possibly aspiration related.
CXR 09/09/24:
1. Minimal retrocardiac opacity, which may be related to pneumonia or subsegmental atelectasis.
2. Otherwise clear lungs.
CXR 09/10/24: Since prior examination, the endotracheal tube has been discontinued. A nasogastric tube has been discontinued. No focal interstitial or airspace opacity to indicate pneumonia. The cardiac mediastinal margins are unremarkable. No
pneumothorax or pleural effusion.
Acute seizure activity:
-underlying seizure disorder
-Lamictal increased to 200mg BID, Lamictal level normal. Note some Lamictal doses have been missed.
-initial EEG unremarkable for age (as well as repeat EEG)
-see below. The patient's seizure on admission could have been caused/exacerbated by acute hypercapnic respiratory failure
Acute hypoxemic and hypercapnic respiratory failure:
-TELEPHONE EXCHANGE OPERATOR called 09/08/24AM for acute change in mental status and hypoxemia. As pt without tonic-clonic activity Ativan not given during TELEPHONE EXCHANGE OPERATOR. EEG did not show seizure activity, CT brain showed mild diffuse cerebral edema which could reflect underlying
diffuse hypoxic�ischemic brain injury. AB.15/115/395 and the patient was intubated after failing BiPAP.
-CTA chest above, notable for no PE and B/L LL consolidations
-Neurology discussed the case with the patient's neurologist at [facility] on 09/09/24AM. 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 The patient had orthopedic surgery just prior to admission. It is likely that the anesthesia worsened and/or
instigated acute hypercapnic respiratory failure.
-extubated 09/09/24
-09/10/24 pt was desaturating and ABG had worsening hypercapnia. Placed on BIPAP.
-09/11/24AM: BIPAP removes and pt was allowed to eat
-09/12/24: Pt on 2L NC O2. VBG noted.
Sepsis due to PNA:
-see above
-cont Zosyn/Vanco
-repeat CXR noted
-considering rapid resolution of PNA on CXR I suspect that pt aspirated and the pt likely had aspiration pneumonitis. Reasonable to consult infectious disease considering that there are risks associated with antibiotics.
Coffee ground emesis:
-on further oral exam small tongue lac noted
-cont Protonix 40mg BID
-Hb stable compared to prior (Feb 2023, July 2023). Current drop likely dilutional.
-GI saw in c/s
KAVYA:
-with hyperkalemia, now resolved
-KAVYA resolved with IVFs
Tachycardia:
-CTA chest NEG for PE
-improved
Other problems:
Hypomagnesemia, resolved
Sabas disease/leukodystrophy
Neurogenic bladder
Solitary kidney
FULL/Lovenox
Transfer to IMU.
Anticipated Discharge: 24 - 48 hours
Subjective/Interval History
-
Date of Service: September 12, 2024
Denies SOB.
Objective Data
-
Labs:
Laboratory Results
09/12/24
05:34
WBC 7.5
Hgb 11.9 L
Hct 38.3 L
Plt Count 152
Sodium 145
Potassium 4.5
Chloride 98
Carbon Dioxide 39 H
BUN 23 H
Creatinine 0.9
Glucose 136 H
Calcium 8.4
Vital Signs:
Vital Signs
Temp Pulse Resp BP Pulse Ox
99 F 105 18 129/74 95
09/12/24 04:43 09/12/24 06:00 09/12/24 06:00 09/12/24 06:00 09/12/24 06:00
I&O
09/11/24 09/12/24 09/13/24
06:59 06:59 06:59
Intake Total 700 / 700 1010 / 1010
Output Total 1950 / 1950 2175 / 2175
Balance -1250 / -1250 -1165 / -1165
--- NOTE | 2024-09-12 11:07 | PTCARENOTE ---
Addendum entered by Terrie Murrieta RN 09/12/24 13:20:
assumed care of pt at 1100
Original Note:
pt received frm previous rn- aox4, nsr/st on monitor, 2LNC, resting comfortably with no complaints at this time. pt able to move arms freely, neuropathy in feet and minimal movement in lower ext. per patient baseline. pt self straight caths with
home kits. pt set up with AM care. father at bedside and educated about plan of care- both verbalized understanding. all safety precautions in place, call mcpherson within reach.
--- NOTE | 2024-09-12 13:52 | W.PN.PUL3 ---
Addendum entered and electronically signed by Abena Edge MD 09/12/24 17:56:
Switch NIV to BIPAP 22/09. VBG in AM.
Addendum entered and electronically signed by Abena Edge MD 09/12/24 14:08:
-Discontinue Antibiotics.
Original Note:
Today's Communication / Plan
-
- Discontinue continue antibiotics
- Continue BiPAP nightly and when patient takes a nap
- Pulmonary team will continue to follow the patient
Assessment
-
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 He had a procedure the day prior to admission at [facility] for subluxation of the left hip. He had progressive mental status
changes, possible recurrent seizure here in the hospital and was transferred to ICU for impending respiratory failure-lean manufacturing coordinator consulted for ventilator/respiratory failure/seizure/critical care management 09/08/2024.
#1. Acute encephalopathy, related to worsening hypercapnia.
- Patient is awake, alert today and doing well on room air. Off noninvasive ventilation now.
-History of seizure disorder, however current presentation felt more likely related to hypercapnia. Neurology service on case
#2. Acute on chronic hypercapnic respiratory failure
-reportedly can occur in patients with Sabas syndrome, potentially triggered by recent anesthesia/left hip subluxation prior to admission with PNA.
-Intubated 09/08/2024, Extubated 09/09/2024
-At home he uses CPAP 8 cmH2O due to KIKO-consideration towards conversion to BiPAP 14/8 cm-follows with Dr. Gan in the outpatient setting locally and at [facility]
- Patient transferred out of ICU, continue nightly BiPAP as well as when patient naps
-Serial blood gases unremarkable with stable chronic compensated hypercapnia. No wheezing on exam
#3. Concern for aspiration. Chest x-ray is unremarkable. Patient is afebrile, normal WBC counts and all cultures negative.
- Discontinue antibiotics.
-MRSA screen negative, however MRSA isolated from tracheal aspirate. In the setting of absence of infiltrates and patient being afebrile with a normal WBC count, monitor off antibiotics for now
Conditions present prior to admission:
Sabas disease.
Asthma.
GERD.
Seizure disorder.
Chronic constipation
Bilateral hip dysplasia
Dr. Gan previously reviewed case with mother at the bedside several times 09/08/2024 and was present during multidisciplinary rounds 09/09/2024-she spoke at length about his Sabas syndrome, excellent care at [facility], potential trials in the future
Dr. Barakat reviewed the case with the patient's brother, Obed, at bedside on 09/10, and with the patient's mother on 09/11 and answered all questions.
Dr. Edge updated patient's father at bedside.
Total time spent on this consultation/encounter __38__ minutes which includes review of history, physical exam, medications, laboratory data, personal review of imaging, extensive review of outpatient records, discussion with care team and
respiratory therapy.
Diagnostic data:
Chest x-ray 09/06/24-mild elevation right hemidiaphragm
Chest x-ray 09/09/2024-minimal retrocardiac opacification possible atelectasis or pneumonia
CT chest 09/08/2024-no evidence for pulmonary embolism, bilateral lower lobe consolidation suspicious for pneumonia
CT head 09/08/2024- mild diffuse cerebral edema
Subjective Data
-
Date of Service:
Date of Service: September 12, 2024
Subjective:
Patient comfortably sitting in bed, on room air, doing well.
Review of Systems
Genitourinary: Other (All 14 systems reviewed and negative except as stated above in the history of present illness.)
Objective Data
Data Reviewed
Vital Signs / I&O / Oxygen:
Vital Signs
Temp Pulse Resp BP Pulse Ox
98.1 F 97 22 134/89 98
09/12/24 11:54 09/12/24 12:00 09/12/24 12:00 09/12/24 12:00 09/12/24 12:00
Intake and Output
09/11/24 09/12/24 09/13/24
06:59 06:59 06:59
Intake Total 700 / 700 1010 / 1010
Output Total 1950 / 1950 2175 / 2175 3700 / 3700
Balance -1250 / -1250 -1165 / -1165 -3700 / -3700
SaO2 [NIV (Non Invasive 95
Ventilation)]
SaO2 [CPAP/PSV] 96
SaO2 [A/C] 94
SaO2 98
Nasal Cannula flow liters per 2
minute
Physical Exam
General: Comfortable
HEENT: Normocephalic
Cardiovascular: S1-S2 and Peripheral Edema (trace puffiness of both feet)
Respiratory: Clear and Other (No wheezing, or rhonchi noted.)
GI: Soft and Non Distended
Neurology: Awake and Alert
Skin: Warm
Labs/Micro/Reports
Lab Data
09/12/24 05:34
09/12/24 05:34
Microbiology
09/09/24 00:21 Blood/Venous Blood Culture - Preliminary
No Growth in 72 hours- Final report to follow
09/09/24 00:15 Blood/Venous Blood Culture - Preliminary
No Growth in 72 hours- Final report to follow
09/10/24 13:56 Nose MRSA Screen - Final
No Methicillin Resistant Staphylococcus aureus isolated.
09/10/24 05:04 Urine Urine Culture - Final
No Significant Growth
09/06/24 12:06 Blood/Venous Blood Culture - Final
No Growth - Final Report
09/06/24 12:12 Blood/Venous Blood Culture - Final
No Growth - Final Report
09/08/24 15:50 Tracheal Aspirate Respiratory Culture - Final
Staph aureus MRSA
09/08/24 15:50 Tracheal Aspirate Gram Stain - Final
09/06/24 20:19 Feces/Stool Salmonella/Shigella Culture - Final
No Salmonella, Shigella, Aeromonas or Plesiomonas species
isolated.
09/06/24 20:19 Feces/Stool Campylobacter Culture - Final
No Campylobacter species isolated.
09/06/24 20:19 Feces/Stool Shiga Toxin Test - Final
No E. coli Shiga Toxin 1 or 2 detected.
09/06/24 20:19 Feces/Stool Stool Leukocytes - Final
--- NOTE | 2024-09-12 15:53 | PTCARENOTE ---
pt worked with pt and ot, straight cathed in br toilet, pt resting in recliner.
--- NOTE | 2024-09-12 17:33 | CM ---
Chart reviewed and patient has been extubated, close to baseline, plan will be to home with family when stable.
Plan; Home with family when stable.
[2024-09-12] MEDS: LOVENOX 40 MG SC (17:47)
[2024-09-12] MEDS: PROTONIX 40 MG PO (19:14)
[2024-09-12] MEDS: REMERON 30 MG PO (19:14)
[2024-09-13] VITALS (64 sets, daily range): BP systolic 52–174; BP diastolic 33–110; BMI 20.9
[2024-09-13 04:13] LABS: Venous Blood Gas B.E. 9.3 mmol/L (-4 to +4); Venous Blood Gas HCO3 43.6 mmol/L (22-27); Venous Blood Gas O2 Sat % 99.7 %; Venous Blood Gas pO2 184 mmHg (30-50)
[2024-09-13 04:15] LABS: Hematocrit 42.9 % (39.0-52.0); Hemoglobin 12.6 g/dL (13.0-18.0); Mean Corp Hgb Conc. 29.4 g/dL (33.0-37.0); Mean Corpuscular Hgb 29.9 pg (27.0-31.0); Mean Corpuscular Volume 101.9 fL (80.0-94.0); Mean Platelet Volume 8.5 fL (7.4-10.4); Platelet Count 183 10^3/uL (130-400); Red Blood Cell Count 4.21 10^6/uL (4.70-6.10); Red Cell Dist. Width 12.4 % (11.5-14.5)
[2024-09-13 04:16] LABS: Venous Blood Gas pCO2 > 115 mmHg (35-48); Venous Blood Gas pH 7.12 (7.32-7.43)
[2024-09-13 04:33] LABS: Blood Urea Nitrogen 14 mg/dl (9-20); Chloride 97 mmol/L (98-107); Estimated Creatinine Clearance 115 ml/min; Glucose 151 mg/dl (70-99); Potassium 4.9 mmol/L (3.5-5.1); Sodium 145 mmol/L (135-145); eGFR > 60.00
[2024-09-13] MEDS: SUBLIMAZE 50 MCG IV ×2 (04:42→05:18)
[2024-09-13] MEDS: PRECEDEX 100 IV (04:47)
[2024-09-13 04:49] LABS: Carbon Dioxide 40 mmol/L (22-30)
--- NOTE | 2024-09-13 05:21 | W.PN.UPDATE ---
Update Note
Progress Note Update
7550- Patient more obtundent less responsive, morning labs obtained. VBG on bipap pH 7.12, CO2>115, HCO3 43.6. Decision made to intubate patient due to acute change in mental status, inability to protect airway, and hypercapnic respiratory
failure. Patient's mother Laurie, called and updated, agreed to proceed with intubation. Anesthesia ELECTRIC FREIGHT CAR OPERATOR called for intubation, patient was intubated without incident. Chest xray obtained for ETT placement. Kd gtt initiated for hypotension.
Sedation protocol ordered for precedex gtt and prn fentanyl.
--- NOTE | 2024-09-13 05:23 | W.PN.ANESINT ---
Anesthesia Intubation Note
- Intubation Note
Intubation Note:
Diagnosis: respiratory distress
Blade: glidescope 4
Tube Size: 8.0 HiLo
Depth: 23cm at the lip
Side Taped: center
Drugs Used: 200 mg propofol, 50mg rocuronium
Grade View: 1
EtCO2 Present: EtCO2 color change present on CO2 detector
Atraumatic: yes
Attempts: 1
Insertion Start and Stop Time: 0455 start o 0458 end
SaO2 Pre: 90
SaO2 Post: 95
Glidescope Used: yes
Other Airway Adjustments: none
Pre-Oxygenated: patient was on bipap
Portable Chest X-Ray: ordered
RSI: no
Suctioned: thick clear secretions
Bilateral Breath Sounds Confirmed: bilateral breath sounds confirmed, no breath sounds over abdomen
Vent Settings:
Settings per _X__Attending Physician
Lisha Leon CRNA
--- NOTE | 2024-09-13 05:52 | PTCARENOTE ---
AM labs sent. pt more obtunded, not responsive to verbal stimuli. VBG results - pH 7.12, CO2 >115. house TANDEM MILL ROLLER and ICU TANDEM MILL ROLLER made aware, RT at bedside. family notified by ICU TANDEM MILL ROLLER, LAUNDRY EQUIPMENT OPERATOR called, upgraded to ICU level of care and plan to intubated. intubated
@ 0440 with #8.0 ETT, 22cm at lip. b/l breath sounds noted. precedex initiated. b/l soft wrist restraints applied. CXR done. pt calm but arousable to voice, nods y/n appropriately, following commands. parents at bedside and updated on ongoing
events. awaiting ABG. care continues
[2024-09-13 06:38] LABS: B.E. 15.8 mmol/L; HCO3 37.5 mmol/L (21-28); O2 Saturation % 99.8 % (94-98); PCO2 34 mmHg (35-48); PO2 265 mmHg (83-108)
[2024-09-13 06:40] LABS: O2 Therapy VENT
[2024-09-13 06:42] LABS: pH 7.65 (7.35-7.45)
--- NOTE | 2024-09-13 07:19 | W.PN.HOSP.TC ---
Today's Communication/Plan
-
Likely extubation later today
WIll follow
Assessment / Plan
Assessment / Plan
Physical exam:
Gen: intubated , appears chronically ill
Eyes: EOMI, PERRLA, no scleral icterus.
Neck: supple.
CV: remains RRR, +S1/S2, no m/r/g.
Resp: no rales, wheezes, or rhonchi.
Abd: +BS, soft, NT, ND
Skin: No rashes.
Neuro: Intubated
Psych: calm
CXR on admission:
1. Mild elevation of the right hemidiaphragm.
2. Moderate right convex curvature of the lower thoracic spine.
Abd Xray: Mild fecal material in the colon. No evidence of intestinal obstruction. New left hip superior dislocation.
L hip Xray: There is superior subluxation of the femur seen on frontal views, however this appears reduced on final lateral view. Consider additional frontal views of the left hip to ensure reduction.
CT brain 09/08/24AM: Suspect mild diffuse cerebral edema which could reflect underlying diffuse hypoxic-ischemic brain injury.
EEG 09/08/24: This study was suggestive of a generalized cortical dysfunction. The speed of the slowing demonstrated was not consistent with status epilepticus or ongoing nonconvulsive seizures.
CTA chest:
1. No evidence of pulmonary embolism.
2. Bilateral lower lobe consolidations suspicious for pneumonia, possibly aspiration related.
CXR 09/09/24:
1. Minimal retrocardiac opacity, which may be related to pneumonia or subsegmental atelectasis.
2. Otherwise clear lungs.
CXR 09/10/24: Since prior examination, the endotracheal tube has been discontinued. A nasogastric tube has been discontinued. No focal interstitial or airspace opacity to indicate pneumonia. The cardiac mediastinal margins are unremarkable. No
pneumothorax or pleural effusion.
Acute seizure activity:
-underlying seizure disorder
-Lamictal increased to 200mg BID, Lamictal level normal. Note some Lamictal doses have been missed.
-initial EEG unremarkable for age (as well as repeat EEG)
-see below. The patient's seizure on admission could have been caused/exacerbated by acute hypercapnic respiratory failure
Acute hypoxemic and hypercapnic respiratory failure:
-MACHINE GREASER called 09/08/24 for acute change in mental status and hypoxemia. As pt without tonic-clonic activity Ativan not given during MACHINE GREASER. EEG did not show seizure activity, CT brain showed mild diffuse cerebral edema which could reflect underlying
diffuse hypoxic�ischemic brain injury. AB.15/115/395 and the patient was intubated after failing BiPAP.
-CTA chest above, notable for no PE and B/L LL consolidations
-Neurology discussed the case with the patient's neurologist at [facility] on 09/09/24. 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 The patient had orthopedic surgery just prior to admission. It is likely that the anesthesia worsened and/or
instigated acute hypercapnic respiratory failure.
-extubated 09/09/24
-09/10/24 pt was desaturating and ABG had worsening hypercapnia. Placed on BIPAP.
-09/11/24: BIPAP removes and pt was allowed to eat
-09/12/24AM: Pt on 2L NC O2. then had worsening lethargy and intubated for airways protection, respiratory failure
Sepsis due to PNA:
-see above
-cont Zosyn/Vanco
-repeat CXR noted
-considering rapid resolution of PNA on CXR I suspect that pt aspirated and the pt likely had aspiration pneumonitis. Reasonable to consult infectious disease considering that there are risks associated with antibiotics.
Coffee ground emesis:
-on further oral exam small tongue lac noted
-cont Protonix 40mg BID
-Hb stable compared to prior (Feb 2023, July 2023). Current drop likely dilutional.
-GI saw in c/s
KAVYA:
-with hyperkalemia, now resolved
-KAVYA resolved with IVFs
Tachycardia:
-CTA chest NEG for PE
-improved
Other problems:
Hypomagnesemia, resolved
Sabas disease/leukodystrophy
Neurogenic bladder
Solitary kidney
FULL/Lovenox
Transfer back to ICU.
Total time spent to see the patient, examine the patient, review data and lab result, discuss treatment plan with patient, nursing staff around 55 minutes
Anticipated Discharge: > 48 hours
Subjective/Interval History
-
Date of Service: September 13, 2024
events over night noted
Objective Data
-
Labs:
Laboratory Results
09/13/24 09/13/24
04:00 06:25
WBC 10.0
Hgb 12.6 L
Hct 42.9
Plt Count 183 D
HCO3 37.5 H
Sodium 145
Potassium 4.9
Chloride 97 L
Carbon Dioxide 40 H
BUN 14
Creatinine 1.0
Glucose 151 H
Calcium 9.0
Vital Signs:
Vital Signs
Temp Pulse Resp BP Pulse Ox
98.6 F 112 24 135/97 99
09/13/24 03:46 09/13/24 06:30 09/13/24 06:30 09/13/24 06:30 09/13/24 06:30
I&O
09/12/24 09/13/24 09/14/24
06:59 06:59 06:59
Intake Total 1010 / 1010 480 / 480
Output Total 2175 / 2175 3500 / 3500
Balance -1165 / -1165 -3020 / -3020
--- NOTE | 2024-09-13 08:12 | PTCARENOTE ---
pt received this am- ett to vent- precedex off, pt awake and appropriately, nods yes and no, follows commands. Dr. Edge at bedside, plan of care discussed with pt and parents. ok to hold off on enteral access per Dr. Edge at this time. oral care
provided, turned and repositioned. all safety precautions in place. pt st on monitor, see vent settings.
--- NOTE | 2024-09-13 09:05 | RESPNOTE ---
Patient extubated to a 6L midflow cannula following a CPAP PSV wean per Dr Edge. NIV standby at bedside.
--- NOTE | 2024-09-13 09:13 | PTCARENOTE ---
pt weaned and extubated to 2LNC, parents at bedside.
--- NOTE | 2024-09-13 09:31 | PTCARENOTE ---
pt extubated to 6LNC, straight cathed for 500 yellow urine, parents at bedside. pt febrile, Dr. Edge aware.
[2024-09-13] MEDS: TYLENOL/FEVERALL 650 MG RECTAL (09:46)
[2024-09-13 10:28] LABS: Venous Blood Gas B.E. 11.7 mmol/L (-4 to +4); Venous Blood Gas HCO3 43.3 mmol/L (22-27); Venous Blood Gas O2 Sat % 99.7 %; Venous Blood Gas pH 7.24 (7.32-7.43); Venous Blood Gas pO2 189 mmHg (30-50)
[2024-09-13 10:30] LABS: Venous Blood Gas pCO2 101 mmHg (35-48)
[2024-09-13] MEDS: LR 500 IV (10:53)
--- NOTE | 2024-09-13 10:59 | PTCARENOTE ---
pt more confused, placed on NIV, Dr. Edge at bedside, vbg drawn and sent. pt hypotensive, 500LR bolus infusing per order, wander restarted. blood cultures sent. ongoing plan of care. parents at bedside and remain updated.
[2024-09-13 11:02] LABS: Venous Blood Gas B.E. 11.5 mmol/L (-4 to +4); Venous Blood Gas HCO3 40.7 mmol/L (22-27); Venous Blood Gas O2 Sat % 99.2 %; Venous Blood Gas pH 7.32 (7.32-7.43); Venous Blood Gas pO2 175 mmHg (30-50)
--- NOTE | 2024-09-13 11:06 | PTCARENOTE ---
wander gtt off, pressure in 120s-140s.
[2024-09-13 11:11] LABS: Venous Blood Gas pCO2 79 mmHg (35-48)
[2024-09-13 11:18] LABS: Lactic Acid 0.8 mmol/L (0.7-2.0)
[2024-09-13] MEDS: PROTONIX IV 40 MG IV ×2 (11:30→20:27)
[2024-09-13] MEDS: NICODERM TRANSDERMAL 7 MG TRANSDERM (11:30)
[2024-09-13] MEDS: NSS (PRESERVATIVE FREE) 10 ML IV ×2 (11:30→20:26)
[2024-09-13] MEDS: ZOSYN 50 IV ×3 (11:41→22:55)
--- NOTE | 2024-09-13 13:41 | W.PN.INTV ---
Addendum entered and electronically signed by Abena Edge MD 09/13/24 14:53:
I called patient's primary neurologist Dr. She Decker at [facility]. We discussed the hospital course during this admission. 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
chronic worsening hypercapnia and recurrent episodes of CO2 retention. Dr. Decker recommended considering an MRI with without contrast to see if there might be any enhancing lesions, which might warrant treatment with steroids. Other than that
unfortunately there are not many options and typically once patient starts feeling bilevel noninvasive positive pressure ventilation, typical neck step is intubation, mechanical ventilation and eventually tracheostomy with long-term mechanical
ventilation support. I discussed with the patient's parents at bedside and updated them about my conversation with Dr. Decker.
Dr. She Decker.
Original Note:
Today's Communication / Plan
Recommendations
- Patient successfully extubated
- Noninvasive positive pressure ventilation resumed postextubation, tidal volume 500, backup rate 14, EPAP 5, IPAP varies between 15-20 to assure tidal volume. Continue when napping as well as when sleeping
- Follow-up chest x-ray in a.m., serial VBG's
- Blood cultures and lactate in view of fever. Resume Zosyn. LR 500 mL bolus
- Phenylephrine as needed for hypotension
Assessment
-
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 He had a procedure the day prior to admission at [facility] for subluxation of the left hip. He had progressive mental status
changes, possible recurrent seizure here in the hospital and was transferred to ICU for impending respiratory failure-marine propulsion technician consulted for ventilator/respiratory failure/seizure/critical care management 09/08/2024. Patient required intubation
for hypercapnic respiratory failure and was subsequently extubated. He was subsequently maintained on we 60 with nightly BiPAP support as well as when he was napping during daytime.
On the night of 09/12 to 09/13, patient developed progressively worsening mental status changes. Despite being on V60, he continued to develop worsening hypercapnia. Patient had to be emergently intubated and mechanically ventilated followed by
quick resolution of hypercapnia. He was successfully extubated on 505.
#1. Acute encephalopathy, related to worsening hypercapnia, Recurrent.
-Patient was awake and alert when SAT was started on mechanical ventilation on 09/13. Post extubation, patient rather quickly developed hypercapnic encephalopathy requiring resumption of noninvasive positive pressure ventilation.
-History of seizure disorder, however current presentation felt more likely related to hypercapnia. Neurology service on case
#2. Acute on chronic hypercapnic respiratory failure, recurrent
-Reportedly can occur in patients with Sabas syndrome, potentially triggered by recent anesthesia/left hip subluxation prior to admission with PNA.
-Intubated 09/08/2024, Extubated 09/09/2024. Re-intubated 09/13, extubated later in the day 09/13.
-At home he uses CPAP 8 cmH2O due to KIKO - follows with Dr. Gan in the outpatient setting locally and at [facility]
- Patient reintubated on 09/13 for worsening hypercapnic encephalopathy despite being on V60 noninvasive ventilation. Extubated later in the day. Patient again developed significant CO2 retention which responded to immediate resumption of
noninvasive positive pressure ventilation. Considering underlying chronic compensated hypercapnia, I suspect if patient is developing underlying neuromuscular weakness which is likely worsening with recurrent respiratory failure. Will reach out to
patient's primary neurologist at [facility].
- Patient also has significant gastric distention on imaging, likely related to noninvasive positive pressure ventilation. Will place an NG to decompress the stomach and also give suppository as I suspect significant abdominal distention is
compromising his ability to ventilate effectively. Will continue BiPAP with backup rate of 14 as well as target tidal volume of 500 as currently ordered, when patient is napping as well as when sleeping.
- Updated patient's parents at bedside. I discussed the concern regarding recurrent hypercapnic respiratory failure with suspected worsening neuromuscular weakness. If noninvasive positive pressure ventilation fails, patient will likely need
invasive ventilation and tracheostomy in the long run. Will discuss with patient's neurologist for further guidance.
#3. Aspiration pneumonitis versus aspiration pneumonia with shock. Chest x-ray on 09/13 shows left lower lobe atelectasis versus pneumonia. Patient also spiked 1 episode of fever as well as brief hypotension postextubation. This happened in the
setting of worsening hypercapnia with encephalopathy.
-Resume Zosyn, draw blood cultures, chest x-ray in AM.
-Continue n.p.o. status for now
-Will place NG tube in the setting of significant gastric distention, aerophagia and difficulty ventilating.
-Patient also given 500 mL of Ringer lactate bolus with good response. Lactate reassuring at 0.8. Continue to titrate down phenylephrine as tolerated
Conditions present prior to admission:
Sabas disease.
Asthma.
GERD.
Seizure disorder.
Chronic constipation
Bilateral hip dysplasia
Dr. Gan previously reviewed case with mother at the bedside several times 09/08/2024 and was present during multidisciplinary rounds 09/09/2024-she spoke at length about his Sabas syndrome, excellent care at [facility], potential trials in the future
Dr. Barakat reviewed the case with the patient's brother, Obed, at bedside on 09/10, and with the patient's mother on 09/11 and answered all questions.
Dr. Edge updated patient's father and mother at bedside 09/13
Total time spent on this consultation/encounter __72__ minutes which includes review of history, physical exam, medications, laboratory data, personal review of imaging, extensive review of outpatient records, discussion with care team and
respiratory therapy.
Diagnostic data:
Chest x-ray 09/06/24-mild elevation right hemidiaphragm
Chest x-ray 09/09/2024-minimal retrocardiac opacification possible atelectasis or pneumonia
CT chest 09/08/2024-no evidence for pulmonary embolism, bilateral lower lobe consolidation suspicious for pneumonia
CT head 09/08/2024- mild diffuse cerebral edema
Subjective Dataa
Subjective Data
Date of Service:
Date of Service: September 13, 2024
Chief Complaint: Planning And Analysis Manager Follow Up and Pulmonary Follow Up
Objective Data
Data Reviewed
Vital Signs / I&O / Oxygen:
Vital Signs
Temp Pulse Resp BP Pulse Ox
100.6 F H 106 14 134/83 98
09/13/24 11:39 09/13/24 13:00 09/13/24 13:00 09/13/24 13:00 09/13/24 13:00
Intake and Output
09/12/24 09/13/24 09/14/24
06:59 06:59 06:59
Intake Total 1010 / 1010 480 / 480
Output Total 2175 / 2175 3500 / 3500 500 / 500
Balance -1165 / -1165 -3020 / -3020 -500 / -500
SaO2 [NIV (Non Invasive 97
Ventilation)]
SaO2 [CPAP/PSV] 91
SaO2 [A/C] 98
SaO2 98
Nasal Cannula flow liters per 3
minute
Physical Exam
General: Respiratory Distress (n) and Comfortable
HEENT: Normocephalic, Anicteric, Moist Mucous Membranes and Other (Full face mask on patient with good seal)
Cardiovascular: S1-S2 and Peripheral Edema (Trace lower extremity edema bilaterally)
Respiratory: Wheeze (n), Crackles (Bilateral), Rhonchi (n), Non-Labored Respirations, Accessory Resp Muscle Use (n), Stridor (n) and Other (Coarse breath sounds heard bilaterally)
GI: Soft, Non Distended and Non Tender
Neurology: Awake, Alert, Oriented and Tremors (n)
Skin: Warm, Dry, Jaundice (n) and Bruising (n)
Labs/Micro/Reports
Lab Data
09/13/24 04:00
09/13/24 04:00
Laboratory Results
09/13/24
06:25
pH 7.65 H*
pCO2 34 L
pO2 265 H
HCO3 37.5 H
O2 Delivery Level Vent
Microbiology
09/09/24 00:15 Blood/Venous Blood Culture - Preliminary
No Growth in 4 days- Final report to follow
09/09/24 00:21 Blood/Venous Blood Culture - Preliminary
No Growth in 4 days- Final report to follow
09/10/24 13:56 Nose MRSA Screen - Final
No Methicillin Resistant Staphylococcus aureus isolated.
09/10/24 05:04 Urine Urine Culture - Final
No Significant Growth
09/06/24 12:06 Blood/Venous Blood Culture - Final
No Growth - Final Report
09/06/24 12:12 Blood/Venous Blood Culture - Final
No Growth - Final Report
09/08/24 15:50 Tracheal Aspirate Respiratory Culture - Final
Staph aureus MRSA
09/08/24 15:50 Tracheal Aspirate Gram Stain - Final
--- NOTE | 2024-09-13 14:08 | PTCARENOTE ---
pt resting comfortably on NIV, pt drowsy but appropriate. repositioned, assessment unchanged.
[2024-09-13] MEDS: NON-FORMULARY ITEM 2 MG BUCCAL ×4 (14:44→21:38)
[2024-09-13] MEDS: DULCOLAX 10 MG RECTAL (14:44)
--- NOTE | 2024-09-13 14:58 | PTCARENOTE ---
Dr. Edge at bedside with RN, educated about NGT insertion for brief period to decompress stomach, pt refusing at this time. ok per Dr. Edge to take breaks from NIV as long as pt awake and alert and mentating appropriately, pt tolerating po
intake. parents remain at bedside.
[2024-09-13 15:08] LABS: Urine Albumin 2+ (Neg - Trace); Urine Bilirubin Negative (Negative); Urine Character Clear (Clear); Urine Color Yellow; Urine Glucose Negative (Negative); Urine Ketone Negative (Negative); Urine Leukocyte Negative (Negative); Urine Nitrite Negative (Negative); Urine Occult Blood Negative (Negative); Urine Urobilinogen Negative (Neg - 1+)
[2024-09-13 15:22] LABS: Urine Bacteria Few (Negative); Urine Red Blood Cell 0-2 /HPF (0-2); Urine Squamous Cell 0-2 /LPF (Few); Urine White Cell 0-2 /HPF (0-5)
--- NOTE | 2024-09-13 16:48 | CM ---
Patient chart reviewed
Patient extubated
PT eval 09/12 rec home with family
Left message w/She [facility]
PLAN: Home with family support
--- NOTE | 2024-09-13 17:07 | PTCARENOTE ---
Addendum entered by Terrie Murrieta RN 09/13/24 18:24:
pt remains aox4, on 6LNC
Original Note:
pt oob to commode, large bm, abdomen less distended and tender, pt continues to refuse ngt, ongoing education, Dr. Edge aware. pt self straight cathed
[2024-09-13] MEDS: LOVENOX 40 MG SC (17:33)
[2024-09-13 17:59] LABS: Venous Blood Gas B.E. 11.9 mmol/L (-4 to +4); Venous Blood Gas HCO3 39.9 mmol/L (22-27); Venous Blood Gas O2 Sat % 99.4 %; Venous Blood Gas pCO2 69 mmHg (35-48); Venous Blood Gas pH 7.37 (7.32-7.43); Venous Blood Gas pO2 222 mmHg (30-50)
[2024-09-13 18:13] LABS: Creatine Phosphokinase 35 U/L (55-170)
[2024-09-13] MEDS: TYLENOL 650 MG PO (19:05)
[2024-09-13] MEDS: LAMICTAL 200 MG PO (20:27)
[2024-09-13] MEDS: REMERON 30 MG PO (20:27)
[2024-09-13] MEDS: SENOKOT 17.2 MG PO (20:27)
--- NOTE | 2024-09-13 21:00 | PTCARENOTE ---
pt oriented x3. c/o throat soreness, PRN tylenol given. patient and family updated at bedside. pt currently on 6L NC, NIV ordered and on intermittently, RT aware. oral care provided. ST on monitor. pt admits to abdominal relief after BM x2 on
dayshift. pt chronic straight cath. offers no other complaints at this time. call mcpherson in reach.
[2024-09-14] VITALS (14 sets, daily range): BP systolic 101–157; BP diastolic 50–95; BMI 21.0
--- NOTE | 2024-09-14 00:05 | PTCARENOTE ---
Addendum entered by Grecia Mckee RN 09/14/24 03:16:
CO2 90, father updated at bedside. adjustments made to NIV settings, repeat VBG in an hour. NGT inserted and connected to LIS for abdominal distention at this time. CXR confirmed placement. R nare @ 57cm. pt straight cathed at this time also. pt
with moderate size BM.
repeat VBG sent, CO2 70. ICU AUTOMOBILE SERVICE STATION MANAGER aware, continue efforts to arouse patient every few hours to avoid severe CO2 retention. no plans for reintubation at this time.
Addendum entered by Grecia Mckee RN 09/14/24 00:29:
RT noticed decrease in tidal volumes and minute ventilation, pt arousable and answering questions but progressively more drowsy. ICU AUTOMOBILE SERVICE STATION MANAGER made aware, VBG ordered and sent.
Original Note:
pt remains on NIV, satting 97-98%. settings: 15/5, 50%, TV 500, RR 14. arousable to voice. call mcpherson in reach.
--- NOTE | 2024-09-14 00:20 | RESPNOTE ---
PT is asleep and remains on the AVAPs setting of the NIV. Started to notice some changes in volumes (Vt and minute ventilation) which was what had happened the night before, when the PT'S CO2 spiked to >115. Discussed these changes with [employer] and
requested a VBG to monitor CO2. Upon reviewing results (co2-90) some changes were made to the NIV and F[employer] states that we just have to keep waking him up and closely monitoring any changes.
[2024-09-14 00:34] LABS: Venous Blood Gas B.E. 11.9 mmol/L (-4 to +4); Venous Blood Gas HCO3 42.3 mmol/L (22-27); Venous Blood Gas O2 Sat % 99.7 %; Venous Blood Gas pH 7.28 (7.32-7.43); Venous Blood Gas pO2 212 mmHg (30-50)
[2024-09-14 00:46] LABS: Venous Blood Gas O2 Therapy NIV
[2024-09-14 00:47] LABS: Venous Blood Gas pCO2 90 mmHg (35-48)
[2024-09-14 02:23] LABS: Venous Blood Gas B.E. 13.3 mmol/L (-4 to +4); Venous Blood Gas HCO3 41.4 mmol/L (22-27); Venous Blood Gas pCO2 70 mmHg (35-48); Venous Blood Gas pH 7.38 (7.32-7.43); Venous Blood Gas pO2 209 mmHg (30-50)
[2024-09-14 04:27] LABS: % Basophils 0.4 % (0-2); % Eosinophils 2.1 % (0-6); % Immature Granulocytes 0.6 % (0-0.5); % Lymphocytes 19.3 % (20.5-51.1); % Monocytes 8.1 % (1.7-9.3); % Neutrophils 69.5 % (42.2-75.2); Absolute Eosinophils 0.2 10^3/uL (0-0.7); Absolute Immature Granulocytes 0.1 10^3/uL (0-0.05); Absolute Lymphocytes 1.6 10^3/uL (1.2-3.4); Absolute Monocytes 0.7 10^3/uL (0.1-0.6); Absolute Neutrophils 5.6 10^3/uL (1.4-6.5); Hematocrit 39.1 % (39.0-52.0); Mean Corp Hgb Conc. 30.7 g/dL (33.0-37.0); Mean Corpuscular Hgb 30.2 pg (27.0-31.0); Mean Corpuscular Volume 98.5 fL (80.0-94.0); Mean Platelet Volume 8.6 fL (7.4-10.4); Nucleated Red Blood Cells % 0 % (-); Platelet Count 151 10^3/uL (130-400); Red Blood Cell Count 3.97 10^6/uL (4.70-6.10); Red Cell Dist. Width 12.4 % (11.5-14.5); White Blood Cell Count 8.1 10^3/uL (4.8-10.8)
[2024-09-14] MEDS: ZOSYN 50 IV ×2 (04:46→13:05)
[2024-09-14 05:06] LABS: ALT (SGPT) 19 U/L (0-50); AST (SGOT) 18 U/L (17-59); Albumin 3.9 g/dl (3.5-5.0); Alkaline Phosphatase 61 U/L (38-126); Blood Urea Nitrogen 19 mg/dl (9-20); Calcium 8.8 mg/dl (8.4-10.2); Carbon Dioxide 37 mmol/L (22-30); Chloride 101 mmol/L (98-107); Estimated Creatinine Clearance 124 ml/min; Glucose 155 mg/dl (70-99); Potassium 4.2 mmol/L (3.5-5.1); Sodium 147 mmol/L (135-145); Total Bilirubin 0.4 mg/dl (0.2-1.3); Total Protein 6.8 g/dl (6.3-8.2); eGFR > 60.00
--- NOTE | 2024-09-14 05:15 | PTCARENOTE ---
AM labs sent. pt remains on NIV, settings unchanged since previous adjustment. abdomen remains distended. pt easily arousable to voice at this time. call mcpherson in reach
[2024-09-14 06:58] LABS: Venous Blood Gas B.E. 14.6 mmol/L (-4 to +4); Venous Blood Gas HCO3 43.5 mmol/L (22-27); Venous Blood Gas O2 Sat % 99.4 %; Venous Blood Gas pH 7.36 (7.32-7.43); Venous Blood Gas pO2 220 mmHg (30-50)
[2024-09-14 07:01] LABS: Venous Blood Gas pCO2 77 mmHg (35-48)
--- NOTE | 2024-09-14 08:04 | W.PN.HOSP.TC ---
Addendum entered and electronically signed by Janette Linda MD 09/14/24 12:03:
shock (on 09/13/24) due to sepsis from aspiration most likely--resolved
Original Note:
Today's Communication/Plan
-
supportive care
check brain MRI
Assessment / Plan
Assessment / Plan
Pt is a 18 year old male
Acute hypoxemic and hypercapnic respiratory failure--from anesthesia from hip subluxation surgery (with known CO2 retention post op from Sabas disease)--was intubated and extubated twice for rising CO2 levels (Neurology discussed the case with
the patient's neurologist at [facility] on 09/09/24AM. 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 The patient had orthopedic surgery just prior to admission. It is likely that the anesthesia worsened and/or instigated acute hypercapnic respiratory
failure)--now on NIV/BiPap--apparently only 'treatment' is trach/PEG which family not inclined to do--in that case, needs DNR/DNI status--is transfer to [facility] at this stage worth it?
Acute seizure activity---underlying seizure disorder--apprec neuro--getting MRI brain today--Lamictal increased to 200mg BID, Lamictal level normal. Note some Lamictal doses have been missed.
-initial EEG unremarkable for age (as well as repeat EEG)-- The patient's seizure on admission could have been caused/exacerbated by acute hypercapnic respiratory failure
Sepsis due to PNA---cont Zosyn--repeat CXR noted--considering rapid resolution of PNA on CXR I suspect that pt aspirated and the pt likely had aspiration pneumonitis--would finish course
Coffee ground emesis--on further oral exam small tongue lac noted--cont Protonix 40mg BID--Hb stable compared to prior (Feb 2023, July 2023). Current drop likely dilutional--apprec GI--no active GI issues
KAVYA--with hyperkalemia, now resolved
Tachycardia--remains--CTA chest NEG for PE
Hypomagnesemia, resolved
Sabas disease/leukodystrophy--chronic--see above discussion--apparently nothing more to do
Neurogenic bladder
Solitary kidney
DVT proph
code status--FULL CODE--see discussion--needs DNR/DNI status
unclear what endpoint will be--has CPAP at home, but likely not enough--if family doesn't want trach/PEG--? hospice vs palliative care....ideally would want [facility] to make that determination......
Anticipated Discharge: > 48 hours
Subjective/Interval History
-
Date of Service: September 14, 2024
pt denies c/o--spoke with Dad, he feels pt is groggy and need to go back on NIV/BiPAP
they are not inclined to pursue trach/PEG BUT pt is full code.....
Objective Data
-
Labs:
Laboratory Results
09/14/24 09/14/24
04:21 06:00
WBC 8.1
Hgb 12.0 L
Hct 39.1
Plt Count 151
HCO3 Cancelled
Sodium 147 H
Potassium 4.2
Chloride 101
Carbon Dioxide 37 H
BUN 19
Creatinine 0.9
Glucose 155 H
Calcium 8.8
Total Bilirubin 0.4
AST 18
ALT 19
Alkaline Phosphatase 61
Vital Signs:
max temp for 24 hours
09/13/24
09:31
Temp 102.9 F H
Vital Signs
Temp Pulse Resp BP Pulse Ox
98.7 F 107 18 148/94 98
09/14/24 07:51 09/14/24 07:00 09/14/24 07:00 09/14/24 07:00 09/14/24 07:00
I&O
09/13/24 09/14/24 09/15/24
06:59 06:59 06:59
Intake Total 480 / 480 580 / 580
Output Total 3500 / 3500 2150 / 2150
Balance -3020 / -3020 -1570 / -1570
Review of Systems
-
All other systems: Reviewed and negative
Physical Exam
-
General: Well Developed, Well Nourished and No Apparent Distress
HEENT: Normocephalic, Atraumatic and Other (NGT in place)
Respiratory: Clear to Auscultation; Negative Wheezes or Rhonchi
Cardiac: Regular Rhythm, S1/S2 and Tachycardic
GI: Soft, Nontender and Distended; Negative Normal Bowel Sounds (decreased)
Musculoskeletal: No Clubbing, No Cyanosis and No Edema
Neuro: Awake and Alert
Psych: Calm
--- NOTE | 2024-09-14 08:30 | PTCARENOTE ---
Received pt in contact isolation. His father and mother are at the bedside. He is awake and alert. He denies any pain, sob, or abdominal discomfort. Good peripheral pulses. Left foot edema. Knee-hi SCD's intact. Left wrist and Left FA#18g protective
catheters both flushed and patent. Posteriorly breath sounds dim throughout, especially in the left base. I demonstrated deep breathing to assist him in blowing off the carbon dioxide, and informed him that he gets sleepy due to the build up of
carbon dioxide. He was able to demonstrated his deep breathing. ETCO2 69. Hyperactive BSX4. Abdomen distended and soft. I asked him if he felt like he needed a suppository, he declined at this time. I stressed the importance of vaping cessation and
the fdc effects on his lungs. He stated its been a while since he has vaped but admitted to relying on the nicotine patches and lozenges. I informed him of [employer] apps for smoking cessation that are evidenced based with good outcomes.
Repositioned in the bed. He prefers right side lying. Safe environment maintained.
[2024-09-14] MEDS: MIRALAX 17 GRAMS PO (08:58)
[2024-09-14] MEDS: NICODERM TRANSDERMAL 7 MG TRANSDERM (08:58)
[2024-09-14] MEDS: SENOKOT 17.2 MG PO (08:59)
[2024-09-14] MEDS: DETROL LA 4 MG PO (09:00)
[2024-09-14] MEDS: LAMICTAL 200 MG PO (09:01)
[2024-09-14] MEDS: PROTONIX IV 40 MG IV (09:01)
[2024-09-14] MEDS: NSS (PRESERVATIVE FREE) 10 ML IV (09:01)
--- NOTE | 2024-09-14 10:00 | PTCARENOTE ---
Partial bath given. Straight cath for 480ml's clear yellow urine. He tolerated it well. He was becoming drowsy ETCo2 73, he was instructed to take deep breaths so he can stay awake to eat the breakfast he ordered. His mother is supportive with care
and coaching him on deep breathing. ETCo2 63.
--- NOTE | 2024-09-14 10:10 | W.PN.UPDATE ---
Update Note
Progress Note Update
Received notification from oven stripper (Dr. Edge) that pt accepted at [facility]--paperwork done--suspect Dr. She Decker is accepting MD
[2024-09-14 10:12] LABS: COVID-19 Antigen Negative (Negative)
--- NOTE | 2024-09-14 11:49 | PN.CDI ---
CDI
- -
CDI:
Physician Documentation Request
Admit Date: 09/06/24 14:54
Dear Doctor Maddi
09/13 Nursing notes states 'pt more confused, placed on NIV, Dr. Edge at bedside, vbg drawn and sent. pt hypotensive, 500LR bolus infusing per order, wander restarted.'
Pulmonary/medicine worker notes 'Aspiration pneumonitis versus aspiration pneumonia with shock'
BP during that time
Selected Entries
09/13/24
10:30 09/13/24
10:34 09/13/24
10:36
Blood pressure 74/61 52/36 52/41
09/13/24
10:45
Blood pressure 61/33
Please clarify which of the following is the most likely etiology of the above symptoms and treatment rendered:
Septic shock
Shock, unknown type
Hypotension
Other
Use of terms such as suspected, likely, concern for, or probable (associated with a specific diagnosis that is being evaluated, monitored, or treated as if it exists) are acceptable and can be coded in the inpatient setting, when documented at the
time of discharge.
Thank you,
Gi Wyatt RN, BSN
CDI Specialist
tiger text
Please use your independent medical judgment in providing your response.
--- NOTE | 2024-09-14 12:05 | CM ---
Pt's family has requested transfer to [facility]. Dr. Linda completed paperwork for transfer.
Plan: Transfer to [facility] for further care.
No discharge planning needs at this time.
--- NOTE | 2024-09-14 12:23 | TRANSFER ---
Report given to Radha VÁSQUEZ for pt going to [facility] room [address] west . [facility] transfer center # [phone]. Full report provided including PMH, recent left hip subluxation @ [facility] on 09/05/24, and the events of this hospitalization including laboratory
findings, and recent straight catheterization @ 1000. His mother is aware of the transfer and that he has a bed currently.
--- NOTE | 2024-09-14 12:29 | TRANSFER ---
Spoke with Zenia arranging transport to [facility]. Updated he will need back up BiPap/NIV if he becomes obtunded en route to [facility].
[2024-09-14] MEDS: NON-FORMULARY ITEM 2 MG BUCCAL (13:05)
--- NOTE | 2024-09-14 13:13 | W.PN.INTV ---
Today's Communication / Plan
Recommendations
- Transfer patient to [facility] for further care
- Continue NIPPV. EPAP 5, IPAP 15-40, tidal volume 500 with back up rate 18
Assessment
-
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 He had a procedure the day prior to admission at [facility] for subluxation of the left hip. He had progressive mental status
changes, possible recurrent seizure here in the hospital and was transferred to ICU for impending respiratory failure-support worker consulted for ventilator/respiratory failure/seizure/critical care management 09/08/2024. Patient required intubation
for hypercapnic respiratory failure and was subsequently extubated. He was subsequently maintained on we 60 with nightly BiPAP support as well as when he was napping during daytime.
On the night of 09/12 to 09/13, patient developed progressively worsening mental status changes. Despite being on V60, he continued to develop worsening hypercapnia. Patient had to be emergently intubated and mechanically ventilated followed by
quick resolution of hypercapnia. He was successfully extubated on 505.
#1. Acute encephalopathy, related to worsening hypercapnia, Recurrent.
-Patient was awake and alert when SAT was started on mechanical ventilation on 09/13. Post extubation, patient rather quickly developed hypercapnic encephalopathy requiring resumption of noninvasive positive pressure ventilation.
-History of seizure disorder, however current presentation felt more likely related to hypercapnia. Neurology service on case
#2. Acute on chronic hypercapnic respiratory failure, recurrent
-Reportedly can occur in patients with Sabas syndrome, potentially triggered by recent anesthesia/left hip subluxation prior to admission with PNA.
-Intubated 09/08/2024, Extubated 09/09/2024. Re-intubated 09/13, extubated later in the day 09/13.
-At home he uses CPAP 8 cmH2O due to KIKO - follows with Dr. Gan in the outpatient setting locally and at [facility]
-Patient reintubated on 09/13 for worsening hypercapnic encephalopathy despite being on V60 noninvasive ventilation. Extubated later in the day. Patient again developed significant CO2 retention which responded to immediate resumption of
noninvasive positive pressure ventilation. Considering underlying chronic compensated hypercapnia, I suspect if patient is developing underlying neuromuscular weakness which is likely worsening with recurrent respiratory failure. Will reach out to
patient's primary neurologist at [facility]. (D/w Dr. Doty 09/13)
-Patient also had significant gastric distention on imaging, likely related to noninvasive positive pressure ventilation. I suspect significant abdominal distention is compromising his ability to ventilate effectively. NG tube was placed with
decreased f/u imaging but patient was not able to tolerate the local discomfort of NG tube. Removed this AM.
-Updated patient's parents at bedside. I discussed the concern regarding recurrent hypercapnic respiratory failure with suspected worsening neuromuscular weakness. If noninvasive positive pressure ventilation fails, patient will likely need
invasive ventilation and tracheostomy in the long run.
-Patient has recurrent hypercapnic respiratory failure despite being on AVAPS with back up rate and assured volume. Patient has episodes where he as hypopneas with significant tidal volume drop even with high pressure support. I suspect if he has
central component to his intermittent hypoventilation, in addition to his neuro-muscular weakness. Baseline underlying compensated hypercapnia is suggestive of underlying chronic hypoventiation likely due to developing neuro-muscular weakness.
Episodes are particularly more obvious at night time, likely due to further hypoventilation and possibly central apnea/hypopnea. Discussed with the patient and his parents at bedside. Reached out to [facility] for further expert management for Sabas
Syndrome. In the event that patient needs invasive termination clerk ventilation particularly at nighttime, he will be best served at a tertiary facility with experience and expertise in the chcf management of neuromuscular weakness.
#3. Aspiration pneumonitis versus aspiration pneumonia with brief hypotension 09/13. Chest x-ray on 09/13 shows left lower lobe atelectasis versus pneumonia. Patient also spiked 1 episode of fever as well as brief hypotension postextubation.
This happened in the setting of worsening hypercapnia with encephalopathy.
-Resumed Zosyn, draw blood cultures, chest x-ray in AM without any obvious infiltrates.
-Resume PO
-NG removed as patient was not able to tolerate it. Aerophagia with NIPPV
-Patient responded well to IVF. Lactate normal, afebrile and normal WBC count. Likely antibiotics can be stopped over next 24-48 hrs.
Conditions present prior to admission:
Sabas disease.
Asthma.
GERD.
Seizure disorder.
Chronic constipation
Bilateral hip dysplasia
Dr. Gan previously reviewed case with mother at the bedside several times 09/08/2024 and was present during multidisciplinary rounds 09/09/2024-she spoke at length about his Sabas syndrome, excellent care at [facility], potential trials in the future
Dr. Barakat reviewed the case with the patient's brother, Obed, at bedside on 09/10, and with the patient's mother on 09/11 and answered all questions.
Dr. Edge updated patient's father and mother at bedside 09/13, 09/14
Total time spent on this consultation/encounter __52__ minutes which includes review of history, physical exam, medications, laboratory data, personal review of imaging, extensive review of outpatient records, discussion with care team and
respiratory therapy.
Diagnostic data:
Chest x-ray 09/06/24-mild elevation right hemidiaphragm
Chest x-ray 09/09/2024-minimal retrocardiac opacification possible atelectasis or pneumonia
CT chest 09/08/2024-no evidence for pulmonary embolism, bilateral lower lobe consolidation suspicious for pneumonia
CT head 09/08/2024- mild diffuse cerebral edema
Subjective Dataa
Subjective Data
Date of Service:
Date of Service: September 14, 2024
Chief Complaint: Vice President Quality Assurance Follow Up and Pulmonary Follow Up
Subjective:
Patient more awake and alert this AM. Wanted NG tube out.
Review of Systems
Genitourinary: Other (All 14 systems reviewed and negative except as stated above in the history of present illness.)
Objective Data
Data Reviewed
Vital Signs / I&O / Oxygen:
Vital Signs
Temp Pulse Resp BP Pulse Ox
97.9 F 95 18 143/95 98
09/14/24 11:20 09/14/24 12:00 09/14/24 12:00 09/14/24 12:00 09/14/24 12:00
Intake and Output
09/13/24 09/14/24 09/15/24
06:59 06:59 06:59
Intake Total 480 / 480 580 / 580 480 / 480
Output Total 3500 / 3500 2150 / 2150 480 / 480
Balance -3020 / -3020 -1570 / -1570 0 / 0
SaO2 [NIV (Non Invasive 99
Ventilation)]
SaO2 [CPAP/PSV] 91
SaO2 [A/C] 98
SaO2 98
Nasal Cannula flow liters per 6
minute
Physical Exam
General: Respiratory Distress (Comfortable off BIPAP ab) and Comfortable
HEENT: Normocephalic, Anicteric and Moist Mucous Membranes
Cardiovascular: S1-S2 and Peripheral Edema (Trace lower extremity edema bilaterally)
Respiratory: Non-Labored Respirations
GI: Soft, Non Distended and Non Tender
Neurology: Awake, Alert and Oriented
Skin: Warm and Dry
Labs/Micro/Reports
Lab Data
09/14/24 04:21
09/14/24 04:21
Laboratory Results
09/14/24
06:00
pH Cancelled
pCO2 Cancelled
pO2 Cancelled
HCO3 Cancelled
O2 Delivery Level Cancelled
Microbiology
09/13/24 10:04 Blood/Venous Blood Culture - Preliminary
No Growth in 24 hours- Final report to follow
09/13/24 14:51 Urine Urine Culture - Preliminary
NO GROWTH
09/09/24 00:21 Blood/Venous Blood Culture - Final
No Growth - Final Report
09/09/24 00:15 Blood/Venous Blood Culture - Final
No Growth - Final Report
09/10/24 13:56 Nose MRSA Screen - Final
No Methicillin Resistant Staphylococcus aureus isolated.
09/10/24 05:04 Urine Urine Culture - Final
No Significant Growth
09/06/24 12:06 Blood/Venous Blood Culture - Final
No Growth - Final Report
09/06/24 12:12 Blood/Venous Blood Culture - Final
No Growth - Final Report
--- NOTE | 2024-09-14 13:16 | PTCARENOTE ---
pt valencia cath'd himself prior to transport pickup to [facility]. He remains on NIV at this time until transport arrives. He requested #2 nicotine tabs prior to transport.
--- NOTE | 2024-09-14 13:42 | W.DCSUMMARY ---
Discharge Summary
Discharge Data
Date of Admission: 09/06/24
Date of Discharge: 09/14/24
-
Pending Results: No
Hospital Course
Primary care physician : Obed Irvin
Principal Discharge diagnosis : Acute hypoxemic and hypercapnic respiratory failure requiring intubation, acute seizure activity, septic shock due to aspiration pneumonia
Chronic Discharge diagnosis : Sabas disease/leukodystrophy, neurogenic bladder, solitary kidney
Hospital Course : Patient was a 18-year-old male wheelchair-bound with a history of Sabas disease which was diagnosed at the age of 12. He presented to the ED after a seizure episode. He had a procedure with anesthesia at [facility] for subluxation
of the left hip. He went home and was discharged from [facility] after the procedure. On the morning after the procedure, his mom went to wake him and found him unresponsive. They did not witness active seizure episodes although there was a loss of
bowel movement with brown emesis on the sheets. Previous seizure episode was 1 year prior and it was in a similar fashion. He was postictal in the emergency department. Patient was admitted.
Problem #1: Acute hypoxemic and hypercapnic respiratory failure requiring intubation. Apparently, this is a known complication from the Sabas disease with CO2 retention postoperatively. Patient presented with seizure and had rising carbon
dioxide levels. Patient was intubated and extubated twice for rising levels. Neurology was consulted and discussed the case with the patient's neurologist at [facility]. Patient had orthopedic surgery just prior to admission here. It is likely that
anesthesia worsened or instigated the acute respiratory failure and seizures. Patient is now extubated and being placed on noninvasive ventilation with BiPAP. Track Service Person has spoken with patient's neurologist who was in Sabas disease
specialist at [facility]. They stated that the only 'treatment 'for this is a trach/PEG. The family is not inclined to do that at this point. However, patient remains full code and would need his CODE STATUS changed. The respiratory therapist assistant, Dr. Edge, has
contacted [facility] for possible transfer. They have accepted the patient in transfer presumed accepting physician is Dr. She Decker.
Problem #2: Acute seizure activity. As mentioned, patient was seen by neurology. EEG was done which was unremarkable. Lamictal level was normal. Lamictal was increased to 200 mg twice daily although some Lamictal doses were missed.
Problem #3: Septic shock due to aspiration pneumonia. Patient was hypotensive and required Levophed. He was placed on Zosyn. Patient had rapid resolution of pneumonia on chest x-ray and it was suspected that the patient aspirated and had an
aspiration pneumonitis. However, would finish out the course of his Zosyn for now.
Problem #4: All other medical issues. These include Sabas disease/leukodystrophy, neurogenic bladder, solitary kidney. These medical issues were stable during his hospitalization. Medications were continued as able. As far as his
coffee-ground emesis, it was actually found on further exam that he had a small tongue laceration which does go along with his seizure history. Hemoglobin was stable and slight drop was likely dilutional.
Problem #5: Disposition. Patient has been accepted in transfer to [facility]. Patient is stable for transfer at this time.
Time for discharge 31 minutes.
Discharge Plan
-
Patient Disposition: Acute Care Hospital
Discharge Orders:
Discharge Patient (As Directed); Ordered 09/14/24
Ordered By: Janette Linda
Discharge Date and Time
Discharge Date/Time: 09/14/24 14:31
Print Language: ISRAELI
== END 2024-09-14 14:31 | disposition short-term general hospital (02) | DRG 208 ==
LOC: ICU 14:54
PROVIDERS: Internal Medicine; Internal Medicine Critical Care Medicine; Nurse Practitioner Family; Nurse Practitioner Primary Care; Student in an Organized Health Care Education/Training Program; ADMITTING PHYSICIAN Internal Medicine; ATTENDING PHYSICIAN Internal Medicine; CONSULT PHYSICIAN Psychiatry & Neurology Neurology; CONSULT PHYSICIAN Student in an Organized Health Care Education/Training Program; EMERGENCY PHYSICIAN Emergency Medicine; FAMILY PHYSICIAN Internal Medicine; OTHER PHYSICIAN Internal Medicine; OTHER PHYSICIAN Internal Medicine Critical Care Medicine
PROC: 5A09357 Assistance with Respiratory Ventilation, Less than 24 Consecutive Hours, Continuous Positive Airway Pressure (ICD-10-PCS; 2024-09-06)
PROC: 5A1935Z Respiratory Ventilation, Less than 24 Consecutive Hours (ICD-10-PCS; 2024-09-08)
PROC: 0D9670Z Drainage of Stomach with Drainage Device, Via Natural or Artificial Opening (ICD-10-PCS; 2024-09-08)
PROC: 0BH17EZ Insertion of Endotracheal Airway into Trachea, Via Natural or Artificial Opening (ICD-10-PCS; 2024-09-08)
DX: J96.22 Acute and chronic respiratory failure with hypercapnia (principal); A41.02 Sepsis due to Methicillin resistant Staphylococcus aureus; J18.9 Pneumonia, unspecified organism; J69.0 Pneumonitis due to inhalation of food and vomit; R65.21 Severe sepsis with septic shock; G93.6 Cerebral edema; S73.002A Unspecified subluxation of left hip, initial encounter; K92.0 Hematemesis; N17.9 Acute kidney failure, unspecified; Q60.0 Renal agenesis, unilateral; G93.40 Encephalopathy, unspecified; J96.01 Acute respiratory failure with hypoxia; G00-G99 Diseases of the nervous system; G40.909 Epilepsy, unspecified, not intractable, without status epilepticus; K21.9 Gastro-esophageal reflux disease without esophagitis; J45.909 Unspecified asthma, uncomplicated; N31.9 Neuromuscular dysfunction of bladder, unspecified; K59.09 Other constipation; G47.33 Obstructive sleep apnea (adult) (pediatric); D64.9 Anemia, unspecified; F32.A Depression, unspecified; F41.9 Anxiety disorder, unspecified; E86.0 Dehydration; E83.42 Hypomagnesemia; E87.5 Hyperkalemia; S01.512A Laceration without foreign body of oral cavity, initial encounter; X58.XXXA Exposure to other specified factors, initial encounter; Y93.84 Activity, sleeping; Y92.003 Bedroom of unspecified non-institutional (private) residence as the place of occurrence of the external cause; Q65.89 Other specified congenital deformities of hip; Z99.3 Dependence on wheelchair; Z11.52 Encounter for screening for COVID-19; Z87.440 Personal history of urinary (tract) infections
CPT/HCPCS: 36600; 70450; 71045; 71275; 73502; 74018; 80048; 80053; 80175; 80202; 81003; 81015; 82140; 82550; 82805; 82962; 83605; 83735; 84100; 84478; 85014; 85018; 85025; 85027; 85610; 86850; 86900; 86901; 87040; 87045; 87046; 87070; 87077; 87086; 87147; 87186; 87205; 87324; 87427; 87449; 87798; 87811; 89055; 92526; 92610; 93005; 94002; 94003; 94660; 95816; 96361; 96374; 97163; 97167; 97530; 97535; 99285; Q9967

== ENCOUNTER 2024-11-24 20:33 | Inpatient (IN) | payer OTHER, SELFPAY ==
[2024-11-24] VITALS (21 sets, daily range): BP systolic 91–132; BP diastolic 50–83
--- NOTE | 2024-11-24 12:00 | ED.GENMED ---
History of Present Illness
General
Chief Complaint: Fever
Time Seen by Provider: 11/24/24 11:04
History of Present Illness
History of Present Illness:
see MDM
Past History
Past History
ED Past Medical History: Asthma, GERD, Seizures and Other (alejandro dz, hypercarbia)
ED Past Surgical History: Orthopedic
Social History
Tobacco: Non-smoker
Alcohol: None
Drug: None
Personal: Single
Living: with family
Family History
Family History: Other (reviewed and non-contributory)
Phy Exam
Physical Exam
Physical Exam:
GENERAL: alert; chronically ill
EYE: pupils equal and reactive
NECK: Supple
ENT: o/p clr, DRY MOUTH
trach collar
CARDIAC: tachycardic
LUNGS: Clear breath sounds bilaterally, no acute respiratory distress, no wheezes/rales/rhonchi
ABDOMEN: Soft, PEG tube; without focal tenderness, no r/g, no cvat, normal bowel sounds
NEUROLOGICAL: Alert and oriented, weakness b/l LE/contractures;
SKIN: Warm and dry, skin intact.
MUSCULOSKELETAL: No edema, well perfused. neg radha's sign
PSYCH: Normal and appropriate interaction.
Course
Orders/Labs/Results
Orders:
Orders
11/24/24 10:28
Electrocardiogram (*1) Urgent
Reason for Study: Chest Pain
EKG- Treatment ONCE
11/24/24 11:09
Straight cath- Treatment ONCE
0.9% Sodium Chloride 1000 ml [Nss] 1,000 ml IV BOLUS
CR Chest Portable - 1 View Urgent
Comment:
Reason For Exam: sepsis
Reason Study Needs to be Portable: Patient Unstable
11/24/24 11:33
Acetaminophen [Tylenol] 650 mg PO NOW STA
11/24/24 12:07
Complete Blood Count/With Diff Urgent
Lactic Acid Q4H
Comment: CANCEL 2nd LACTIC ACID IF 1st LACTIC ACID IS LESS THAN 2
Blood Culture Q30M
JESSICA Source: Blood/Venous
Specimen Description:
Blood Culture Q30M
JESSICA Source: Blood/Venous
Specimen Description:
11/24/24 12:55
Comprehensive Metabolic Panel Urgent
Urinalysis Reflex To Culture Urgent
Date Specimen was Collected: 11/24/24
Time Specimen was Collected: 11:11
Urine Microscopic Reflex Cult Urgent
Urine Culture Urgent
JESSICA Source: U
Specimen Description:
Date Specimen was Collected: 11/24/24
Time Specimen was Collected: 11:11
11/24/24 14:14
Acetaminophen [Tylenol] 325 mg PO NOW STA
11/24/24 14:20
0.9% Sodium Chloride 250 ml [Nss] 250 ml IV BOLUS
11/24/24 14:21
Nicotine [Nicoderm Transdermal] 14 mg TRANSDERM NOW STA
11/24/24 14:34
Ciprofloxacin 400 mg/[id number] [Cipro 400 mg] 200 ml IV NOW
11/24/24 16:42
CT Abd/pel Without Iv Or Oral Urgent
Comment:
Reason For Exam: sepsis, uti
11/24/24 16:44
Acetaminophen [Tylenol] 1,000 mg PO NOW STA
Abnormal Lab Results
11/24/24 11/24/24
12:07 12:55
WBC 19.4 H 10^3/uL
(4.8-10.8)
RBC 4.01 L 10^6/uL
(4.70-6.10)
Hgb 11.9 L g/dL
(13.0-18.0)
Hct 35.3 L %
(39.0-52.0)
Abs Immat Gran (auto) 0.2 H 10^3/uL
(0-0.05)
Absolute Neuts (auto) 17.0 H 10^3/uL
(1.4-6.5)
Absolute Monos (auto) 0.8 H 10^3/uL
(0.1-0.6)
Immature Gran % 1.0 H %
(0-0.5)
Neutrophils % 87.4 H %
(42.2-75.2)
Lymphocytes % 6.6 L %
(20.5-51.1)
Sodium 129 L mmol/L
(135-145)
Glucose 101 H mg/dl
(70-99)
Ur Occult Blood Reflex 4+ A
(Negative)
Leukocyte Esterase Rfl 3+ A
(Negative)
Urine RBC 16-20 A /HPF
(0-2)
Urine WBC (Reflex) 26-30 A /HPF
(0-5)
Urine Bacteria (Reflex) Many A
(Negative)
Urine Albumin (Reflex) 1+ A
(Neg - Trace)
11/24/24 12:07
11/24/24 12:55
Vital Signs
Initial and Last Documented VS:
Initial Vital Signs
Temp Pulse BP Pulse Ox
37.4 C 145 102/56 98
11/24/24 10:23 11/24/24 10:23 11/24/24 10:23 11/24/24 10:23
Last Documented Vital Signs
Temp Pulse Resp BP Pulse Ox
40.2 C H 147 24 120/71 98
11/24/24 16:40 11/24/24 16:30 11/24/24 16:30 11/24/24 16:20 11/24/24 12:01
MDM/Problems Addressed
Differential Diagnosis Includes:
see MDM
MDM/Problems Addressed:
Note:
CHIEF COMPLAINT(S)
Fever and possible urinary tract infection.
HISTORY OF PRESENT ILLNESS
The patient is a 19-year-old male with a history of alejandro disease, susequent trach/PEG most recent hospitolization, self-caths with h/o urinary tract infections who presented due to fever and possible urinary tract infection. The patient had a
recent urinary issue earlier in the week after returning home 8 days ago post-extensive hospitalization at [facility]. Initially stable, symptoms escalated with chills and fever beginning yesterday. He experienced blood at the tip of his catheter and
difficulties with urinary flow during self-catheterization. His catheterization frequency is every three hours, though he often does not sense bladder fullness fully. Despite earlier improvements with a smaller-diameter catheter, the fever escalated
to 102.6�F overnight, prompting calls to his healthcare provider, who advised presenting to the emergency room. Symptom management involved acetaminophen and oral fluids, with fluctuating fever and decreasing urine output. The patient started
nitrofurantoin, prescribed post-procedure planning, but one dose was administered before collecting a urine sample, potentially affecting future cultures.
EXTERNAL RECORDS REVIEWED
The patient was treated with nitrofurantoin as previously called in for an upcoming procedure.
SOCIAL DETERMINANTS AFFECTING HEALTH
The patient displays anxiety and reluctance towards hospital visits, attributed to past hospital trauma.
MEDICATIONS
Previously took one dose of nitrofurantoin, also intended for upcoming procedure prophylaxis.
PHYSICAL EXAM
- Nursing notes reviewed and vital signs reviewed.
- The patient appears anxious but is cooperative.
PROBLEM LIST
Acute:
- Fever
- Suspected urinary tract infection
- Difficulties with self-catheterization and suspected false passages
Chronic:
- Recurrent urinary tract infections
PLAN
- Obtain a catheterized urine specimen and send for culture.
- Administer IV fluids and antipyretics (acetaminophen) to manage fever.
- Initiate IV antibiotics and transition to oral antibiotics contingent on culture results.
- Blood cultures and laboratory tests to assess the systemic infection possibility.
DIFFERENTIAL DIAGNOSIS
The Differential Diagnosis includes, in no particular order and is not limited to:
- Urinary tract infection
- Pyelonephritis
- Catheter-associated urinary tract infection
- Bladder stones
- Benign prostatic hyperplasia
- Urethral stricture
- Acute bacterial prostatitis
- Septicemia secondary to urinary tract infection
- Drug-induced fever
- Anxiety or stress-induced hyperthermia
11/24/24 - 14:11
Patients lactic acid levels are normal, reducing concern for sepsis. Elevated white count aligns with the diagnosis of an infection. Despite administering Tylenol, the patients temperature remains elevated at 100.8�F. The decision to admit or
discharge with antibiotics is pending, with oral ciprofloxacin suggested due to its effectiveness in the past and bacteria sensitivity. IV ciprofloxacin can be given prior to possible discharge. Persistent fever despite medication, shaking chills,
and elevated heart rate raise concerns for possible bloodstream infection. Patient expresses a desire to go home despite these symptoms. Monitoring of heart rate and blood pressure will continue, and another dose of Tylenol may be administered. No
evidence of pneumonia noted.11/24/24 - 15:18
Pharmacy has been delayed in providing CIPRO, causing a delay in treatment initiation. The patient currently meets septic criteria with a fever, elevated white blood cell count, and increased heart rate.The plan is to start empiric antibiotics, with
CIPRO ordered based on past sensitivity data, while awaiting culture results for confirmation. The patient may leave against medical advice if desired, but it is strongly advised to stay due to clinical instability and ongoing need for antibiotics
and monitoring. Concerns about anxiety management were addressed with the possibility of administering a low dose of Ativan if necessary. Despite the option to discharge, remaining in the hospital is recommended for optimal management of the current
septic state until the antibiotics are administered and stable vitals are achieved. Patient was still adamant he was going home
11/24/2024 1656 PM
Patient now tacky in the 140s and normotensive but febrile to 40. He is now agreeable to stay in the hospital. He received his Cipro. He is already had 20/kg fluid bolus. He will need more fluid. I did order a dry CT scan, patient has a
congenital solitary kidney, will avoid contrast
Admitted to the hospital
*Pulse Oximetry
SaO2: 98
Oxygen Mode of Delivery: Room air
Patient hypoxic: no (97)
*Critical Care Note
Total Time (30-74mins, 75-104mins- exclusive of procedures): Not Applicable
ED Attending Note
-
Portions of this chart may have been created with voice recognition software.� Occasional wrong word or��sound alike� substitutions may have occurred due to the inherent limitations of voice recognition software.
Discharge Plan
Departure
Patient Disposition: Admit
Date of Disposition: 11/24/24
Time of Disposition: 16:44
Admit to: IMU
Presentation/result/management discussed w/ accepting MD/DO: Hospitalist
Condition: Fair
Covid-19: Not Applicable
Discharge Problem:
UTI (urinary tract infection), Sepsis
Instructions: Urinary tract infection in adults - ED discharge instructions
Prescriptions:
No Action
cholecalciferol (vitamin D3) [Vitamin D3] 25 mcg (1,000 unit) Tablet
25 mcg PO DAILY
omeprazole 40 mg capsule,delayed release(DR/EC)
80 mg PO DAILY
ferrous sulfate 325 mg (65 mg iron) Tablet
325 mg PO DAILY
vitamin B complex [B Complete] Tablet
1 tab PO DAILY Qty: 0
Gemtesa 75 mg Tablet
75 mg PO DAILY
Centrum MultiGummies 80 mcg Tablet,Chewable
1 tab PO DAILY
lamotrigine [Lamictal] 150 mg Tablet
150 mg PO BID
methenamine hippurate [Hiprex] 1 gram Tablet
1 g PO BID
ascorbic acid (vitamin C) [Vitamin C] 500 mg Tablet
500 mg PO DAILY
mirtazapine 15 mg Tablet
30 mg PO HS
fluticasone propionate [Flonase] 50 mcg/actuation [place],Suspension
1 spray INTRANASAL DAILYPRN PRN (Reason: allergies)
nicotine (polacrilex) 2 mg Lozenge
2 mg BUCCAL Q2HPRN PRN (Reason: stop smoking)
cranberry extract [Ellura] 200 mg Capsule
72 mg PO DAILY
Fiber Gummies 1.7 gram Tablet,Chewable
1.7 g PO DAILY
Referrals:
Obed Irvin MD [Family Provider, Internal Medicine] - Follow up in 2-3 days
Activity Restrictions/Additional Instructions:
You have a bladder infection. Use Cipro twice a day for 10 days. We will call you if we need to change this antibiotic. Use Tylenol every 4-6 hours for fevers. Encourage fluids or give extra fluids via PEG. Return for worsening symptoms like
persistent fevers despite Tylenol, lethargy, low blood pressure, shaking chills etc.
Interventions
Interventions:
*Risk Screen - Suicide Last Done: 11/24/24 10:28
*General Assessment Last Done: 11/24/24 12:33
*Neglect/Abuse Screening Last Done: 11/24/24 10:28
*ED- Fall Risk Assessment Last Done: 11/24/24 12:33
*ED COVID-19 Vaccine History Last Done: 11/24/24 12:33
ED- Neurological Assessment Last Done: 11/24/24 12:33
ED-Skin Assessment Last Done: 11/24/24 12:33
Discharge Date and Time
Print Language: ARMENIAN
[2024-11-24] MEDS: NSS 1000 IV (12:07)
[2024-11-24] MEDS: TYLENOL 650 MG PO (12:12)
[2024-11-24 12:26] LABS: Hematocrit 35.3 % (39.0-52.0); Hemoglobin 11.9 g/dL (13.0-18.0); Mean Corp Hgb Conc. 33.7 g/dL (33.0-37.0); Mean Corpuscular Volume 88.0 fL (80.0-94.0); Nucleated Red Blood Cells % 0 % (-); Platelet Count 250 10^3/uL (130-400); Red Cell Dist. Width 13.6 % (11.5-14.5)
[2024-11-24 13:09] LABS: Urine Character Clear (Clear)
[2024-11-24 13:19] LABS: ALT (SGPT) 16 U/L (0-50); AST (SGOT) 22 U/L (17-59); Albumin 3.7 g/dl (3.5-5.0); Alkaline Phosphatase 86 U/L (38-126); Blood Urea Nitrogen 14 mg/dl (9-20); Calcium 8.8 mg/dl (8.4-10.2); Carbon Dioxide 25 mmol/L (22-30); Chloride 98 mmol/L (98-107); Glucose 101 mg/dl (70-99); Potassium 3.8 mmol/L (3.5-5.1); Sodium 129 mmol/L (135-145); Total Protein 6.8 g/dl (6.3-8.2); eGFR > 60.00
[2024-11-24 13:40] LABS: Urine Red Blood Cell 16-20 /HPF (0-2); Urine White Cell 26-30 /HPF (0-5)
[2024-11-24] MEDS: NICODERM TRANSDERMAL 14 MG TRANSDERM (14:24)
[2024-11-24] MEDS: TYLENOL 325 MG PO (14:25)
[2024-11-24] MEDS: NSS 250 IV (14:25)
[2024-11-24] MEDS: CIPRO 400 MG 200 IV (15:20)
[2024-11-24] MEDS: TYLENOL 1000 MG PO (16:54)
[2024-11-24] MEDS: NSS 500 IV (17:43)
--- NOTE | 2024-11-24 18:52 | HPS.HSE ---
Family Physician
-
Family Physician: Obed Irvin MD
Chief Complaint
-
Fever
History of Present Illness
Patient is a 19 y/o male past medical history of Chronic Hypercapnic Respiratory Failure requiring night ventilator, Sabas Disease / Leukodystrophy, Seizure Disorder, Neurogenic Bladder requiring straight cath who presents with fever. Patient
intermittently straight caths about every 3-4 hours during the day. Earlier this week he started having difficulty with straight catheterization requiring usage of a small catheter. He notes using his normal sized catheter he was unable to get any
urine, and was noting some blood on the tip of the catheter. Last night started spiking fevers, and is now reporting cloudy, malodorous urine.
Medical History
Past Medical History
Past Medical History: Reports Other
Additional Past Medical History:
Chronic Hypercapnic Respiratory Failure
Sabas Disease / Leukodystrophy
Seizure Disorder
Neurogenic Bladder
Solitary Left Kidney
Past Surgical History: Reports Other
Additional Past Surgical History:
Tracheostomy
PEG Tube Placement
Arthroscopic Surgery
Social History
Tobacco: Former Smoker (Now using nicotine lozenge)
Family History
Family History: Not pertinent
Allergies / Home Medications
Allergies reflects when Allergies were last updated in [facility].
Home Medications with original date entered in [facility]
Allergy/Medication List:
Allergies
Allergy/AdvReac Type Severity Reaction Status Date / Time
cat dander Allergy Unknown Verified 11/24/24 10:23
dog dander Allergy Unknown Verified 11/24/24 10:23
grass pollen Allergy Unknown Verified 11/24/24 10:23
horse dander Allergy Unknown Verified 11/24/24 10:23
NSAIDS (Non-Steroidal Allergy Avoids due Verified 11/24/24 10:23
Anti-Inflamma to
solitary
kidney
tree and shrub pollen Allergy Unknown Verified 11/24/24 10:23
tegaderm Allergy sensitivity Uncoded 11/24/24 10:23
Home Medications
cholecalciferol (vitamin D3) 25 mcg (1,000 unit) tablet (Vitamin D3) 50 mcg PO DAILY Supplement 11/11/20
ferrous sulfate 325 mg (65 mg iron) tablet 325 mg PO DAILY Supplement 02/26/23
omeprazole 40 mg capsule,delayed release 40 mg PO DAILY GERD 02/26/23
vibegron 75 mg tablet (Gemtesa) 75 mg PO DAILY OVERACTIVE BLADDER 02/26/23
fluticasone propionate 50 mcg/actuation nasal spray,suspension 1 spray intranasal DAILY 09/06/24
lamotrigine 150 mg tablet (Lamictal) 150 mg PO BID Seizures 09/06/24
methenamine hippurate 1 gram tablet 1 g PO BID Infection 09/06/24
mirtazapine 15 mg tablet 45 mg PO HS Sleep 09/06/24
nicotine (polacrilex) 2 mg buccal lozenge 2 mg buccal Q3HPRN PRN stop smoking 09/06/24
Cranberry (Ellura) 72 mg PO DAILY 11/24/24
Fiber Gummies 3 gummy PO DAILY 11/24/24
acetaminophen 325 mg tablet (Tylenol) 650 mg PO Q6HPRN PRN mild pain/fever 11/24/24
albuterol sulfate 90 mcg/actuation aerosol inhaler 2 puff inhalation R TID 11/24/24
azelastine 137 mcg (0.1 %) nasal spray 2 spray intranasal BID 11/24/24
baclofen 5 mg tablet 7.5 mg PO BID 11/24/24
buspirone 10 mg tablet 10 mg PO BID 11/24/24
carboxymethylcellulose sodium 0.5 % eye drops in a dropperette (Refresh Plus) 1 - 2 drp BOTH EYES DAILYPRN PRN dry eyes 11/24/24
docusate sodium 283 mg/5 mL enema (Enemeez) 283 mg PA DAILYPRN PRN constipation 11/24/24
lorazepam 1 mg tablet 1 mg PO [id number] PRN anxiety 11/24/24
melatonin 3 mg tablet 9 mg PO HS 11/24/24
nitrofurantoin monohydrate/macrocrystals 100 mg capsule 100 mg PO BID 11/24/24
oxybutynin chloride 5 mg tablet,extended release 24 hr 5 mg PO HS 11/24/24
polyethylene glycol 3350 17 gram oral powder packet (Miralax) 17 g PO DAILY 11/24/24
sodium chloride 0.9 % for nebulization 0 ml inhalation R Q4HPRN PRN sob 11/24/24
therapeutic multivitamin 1 tab PO DAILY 11/24/24
Review of Systems
-
A 12 point ROS was completed and negative except as noted: Yes
Constitutional: Reports Fever and Chills
Respiratory: Denies Cough or Trouble Breathing
Cardiac: Denies Chest Pain or Palpitations
Abdomen/GI: Denies Nausea, Vomiting or Diarrhea
Physical Exam
Vital Signs
Vital Signs
Temp Pulse Resp BP Pulse Ox
102.5 F H 137 24 121/60 98
11/24/24 17:44 11/24/24 18:30 11/24/24 18:30 11/24/24 18:20 11/24/24 12:01
Physical Exam
General: Comfortable and Conversant
HEENT: Anicteric, Moist mucous membranes and Other (Tracheostomy)
Respiratory: Non Labored Respirations and Other (Coarse breath sounds throughout)
Cardiac: S1/S2, Regular Rhythm and Tachycardia
GI: Soft, Non Tender and Peg Tube
Rectal: Deferred by Provider
Genito-urinary: Other (Distended, palpable bladder)
Skin: Warm and Dry
Neuro: Awake, Alert and Oriented
Psych: Calm
Laboratory Results
-
11/24/24 12:07
11/24/24 12:55
Laboratory Results
Lactic Acid Cancelled 11/24/24 15:15
Total Bilirubin 0.7 mg/dl (0.2-1.3) 11/24/24 12:55
AST 22 U/L (17-59) 11/24/24 12:55
ALT 16 U/L (0-50) 11/24/24 12:55
Alkaline Phosphatase 86 U/L (38-126) 11/24/24 12:55
Data Reviewed
-
Diagnostic Radiology: Report Reviewed by me
CT Scan: Report Reviewed by me
Lab Data: Labs Reviewed by me
Old Records: Reviewed
Impression/Plan
-
Sepsis secondary to Catheter-Associated Urinary Tract Infection
-Consult Urology given concerns for possible false passage vs stenosis causing difficulty with intermittent straight cath
-Transition ciprofloxacin to ceftriaxone given seizure history
-Await urine and blood cultures
Hyponatremia
-Some notes indicate prior history of hyponatremia, but recent sodium levels within normal range
-Continue IVFs in setting of sepsis
-Check urine electrolytes
-Recheck sodium in AM
Chronic Hypercapnic Respiratory Failure
-Continue nightly vent
-Continue albuterol
-Consult Pulmonary for routine vent management
Sabas Disease / Leukodystrophy
-Continue baclofen
Seizure Disorder
-Continue Lamictal
Anxiety / Depression
-Continue buspirone, mirtazapine, sertraline and prn lorazepam
Solitary Left Kidney
-Renal function at baseline
DVT proph: Lovenox
Code Status:Full Code
--- NOTE | 2024-11-24 19:22 | W.PN.UPDATE ---
Update Note
Progress Note Update
I could not get any information from the patient du to trach
Information gathered by chart review and speaking with the ER staff ad mother
This note serves as an addendum to the H&P by forensic dna analyst SHAYY Virginia MORADelmy
HPI:
18M single, non smoker, lives with family, WC bound, HX Neurogenic bladder, self cath q3-4hrs , HX Sz, HX Sabas dx (since age 12) requiring PEG and Trach , Vent HS , prior HX Hypercanic RF with chr hypercarbia , oral feeding which was diagnosed
at the age of 12 seen at ER
- recently difficulty straight cath especially large bore F Cath recently - recently only passes small bore F cath
- spike fever last night
Vital Signs
Temp Pulse Resp BP Pulse Ox
102.5 F H 130 21 108/50 98
11/24/24 17:44 11/24/24 19:15 11/24/24 19:15 11/24/24 19:13 11/24/24 12:01
PE:
GENERAL: alert; chronically ill
NECK: Supple
Trach collar
Card : tachycardic
Resp: Clear breath sounds bilaterally, no wheezes/rales/rhonchi
Abdomen: Soft, PEG tube; without focal tenderness, no r/g, no cvat, normal bowel sounds
THERAPEUTIC ASSISTANT: Alert and oriented, weakness b/l LE/contractures;
MS: No edema, well perfused
Psych: Normal and appropriate interaction.
Relevant Data
Abnormal Labs
11/24/24 11/24/24
12:07 12:55
WBC 19.4 H
RBC 4.01 L
Hgb 11.9 L
Hct 35.3 L
Abs Immat Gran (auto) 0.2 H
Absolute Neuts (auto) 17.0 H
Absolute Monos (auto) 0.8 H
Immature Gran % 1.0 H
Neutrophils % 87.4 H
Lymphocytes % 6.6 L
Sodium 129 L
Glucose 101 H
Ur Occult Blood Reflex 4+ A
Leukocyte Esterase Rfl 3+ A
Urine RBC 16-20 A
Urine WBC (Reflex) 26-30 A
Urine Bacteria (Reflex) Many A
Urine Albumin (Reflex) 1+ A
LA 1.1
Last hospitalist admission: 09/06/24 - 09/14/24
-
ASSESSMENT & PLAN
Sepsis due to presumed CAUTI of self cath patient
Concern for urethral stenosis : Recent HX suggest dficulty sealf cath with large bore F cath , OK with small bore F cath
HX Neurogenic bladder with self cath q3hrs
hi WCC, T max 102
- D/W patient and mother for indwelling cath during IP stay - patient and mother agree
- Switch to IV CFTX in place of IV Ciprofloxacin
- LR IVF 125/H ( s/p septic fluid 2 L NS at ER )
- Trend LA
- f/u BCx and UCx
- Trend T and WCC
- Urology consult
Recent Trach and PEG in September 2024 with Vent HS at home: Improved Biacarb compare to masy and now
HX hypoxemic and hypercapnic respiratory failure requiring intubation.
HX Sabas disease with onset at age 12
WC bound
- Size 7 cuffed trach- deflated while off Vent during day time , inflated at night for vent HS
- f/u by neurology at [facility]
- Continue home medications
- Pul consult for Vent management as IP
HX seizure activity.
- on [employer] Lamictal 200 mg BID
- avoid fluoroquinolones to it is one of the meds that lower the Sz threshold
All other medical issues
- Sabas disease/leukodystrophy
- Neurogenic bladder
- solitary L kidney since
- Medications were continued as able.
- known to [facility]
DVT Px: LMWH
Full code
IMU
[2024-11-24] MEDS: ATIVAN 1 MG PO (19:32)
[2024-11-24 19:45] LABS: COVID-19 Antigen Negative (Negative)
--- NOTE | 2024-11-24 20:51 | CONS.URO ---
Medical History
History of Present Illness
19M with Sabas disease, leukodystrophy, known to Dr. Ernandez for neurogenic bladder, solitary kidney, chronic urinary retention managed with CIC and bladder botox
History of recurrent UTI and urosepsis
Recently got out of the hospital after 10 weeks inpatient
Had a trach placed
Significant deconditioning
Has been having increasing difficulty with self catheterization
Admitted for urosepsis after fevers at home
CT showed urinary retention, hydroureteronephrosis
Bermudez catheter was placed with 1200cc output since placement
PMH per H&P:
Chronic Hypercapnic Respiratory Failure
Sabas Disease / Leukodystrophy
Seizure Disorder
Neurogenic Bladder
Solitary Left Kidney
Past Surgical History:
Tracheostomy
PEG Tube Placement
Arthroscopic Surgery
Social History
Tobacco: Non-smoker
Alcohol: None
Drug: None
Family History
Family History: Reviewed & Not Pertinent
Allergies/Home Medications
Allergies
Allergy/AdvReac Type Severity Reaction Status Date / Time
cat dander Allergy Unknown Verified 11/24/24 10:23
dog dander Allergy Unknown Verified 11/24/24 10:23
grass pollen Allergy Unknown Verified 11/24/24 10:23
horse dander Allergy Unknown Verified 11/24/24 10:23
NSAIDS (Non-Steroidal Allergy Avoids due Verified 11/24/24 10:23
Anti-Inflamma to
solitary
kidney
tree and shrub pollen Allergy Unknown Verified 11/24/24 10:23
tegaderm Allergy sensitivity Uncoded 11/24/24 10:23
Home Medications
�Medication �Instructions �Recorded �Confirmed �Type
cholecalciferol (vitamin D3) 25 50 mcg PO DAILY Supplement 11/11/20 11/24/24 History
mcg (1,000 unit) tablet (Vitamin
D3)
ferrous sulfate 325 mg (65 mg 325 mg PO DAILY Supplement 02/26/23 11/24/24 History
iron) tablet
omeprazole 40 mg capsule,delayed 40 mg PO DAILY GERD 02/26/23 11/24/24 History
release
vibegron 75 mg tablet (Gemtesa) 75 mg PO DAILY OVERACTIVE BLADDER 02/26/23 11/24/24 History
fluticasone propionate 50 1 spray intranasal DAILY 09/06/24 11/24/24 History
mcg/actuation nasal
spray,suspension
lamotrigine 150 mg tablet 150 mg PO BID Seizures 09/06/24 11/24/24 History
(Lamictal)
methenamine hippurate 1 gram tablet 1 g PO BID Infection 09/06/24 11/24/24 History
mirtazapine 15 mg tablet 45 mg PO HS Sleep 09/06/24 11/24/24 History
nicotine (polacrilex) 2 mg buccal 2 mg buccal Q3HPRN PRN stop smoking 09/06/24 11/24/24 History
lozenge
Cranberry (Ellura) 72 mg PO DAILY 11/24/24 11/24/24 History
Fiber Gummies 3 gummy PO DAILY 11/24/24 11/24/24 History
acetaminophen 325 mg tablet 650 mg PO Q6HPRN PRN mild 11/24/24 11/24/24 History
(Tylenol) pain/fever
albuterol sulfate 90 mcg/actuation 2 puff inhalation R TID 11/24/24 11/24/24 History
aerosol inhaler
azelastine 137 mcg (0.1 %) nasal 2 spray intranasal BID 11/24/24 11/24/24 History
spray
baclofen 5 mg tablet 7.5 mg PO BID 11/24/24 11/24/24 History
buspirone 10 mg tablet 10 mg PO BID 11/24/24 11/24/24 History
carboxymethylcellulose sodium 0.5 1 - 2 drp BOTH EYES DAILYPRN PRN 11/24/24 11/24/24 History
% eye drops in a dropperette dry eyes
(Refresh Plus)
docusate sodium 283 mg/5 mL enema 283 mg [place] DAILYPRN PRN constipation 11/24/24 11/24/24 History
(Enemeez)
lorazepam 1 mg tablet 1 mg PO [id number] PRN anxiety 11/24/24 11/24/24 History
melatonin 3 mg tablet 9 mg PO HS 11/24/24 11/24/24 History
nitrofurantoin 100 mg PO BID 11/24/24 11/24/24 History
monohydrate/macrocrystals 100 mg
capsule
oxybutynin chloride 5 mg 5 mg PO HS 11/24/24 11/24/24 History
tablet,extended release 24 hr
polyethylene glycol 3350 17 gram 17 g PO DAILY 11/24/24 11/24/24 History
oral powder packet (Miralax)
sodium chloride 0.9 % for 0 ml inhalation R Q4HPRN PRN sob 11/24/24 11/24/24 History
nebulization
therapeutic multivitamin 1 tab PO DAILY 11/24/24 11/24/24 History
Physical Exam
Vital Signs
Vital Signs
Temp Pulse Resp BP Pulse Ox
102.5 F H 130 21 108/50 98
11/24/24 17:44 11/24/24 19:15 11/24/24 19:15 11/24/24 19:13 11/24/24 12:01
Lab / Testing Results
Laboratory Results
11/24/24 12:07
11/24/24 12:55
Physical Exam
General: No Apparent Distress
Respiratory: Other (trach)
GI: Soft and Non Tender
Genito-urinary: Clear Urine and Bermudez Catheter
Assessment / Plan
-
19M with Sabas disease, leukodystrophy, known to Dr. Ernandez for neurogenic bladder, solitary kidney, chronic urinary retention managed with CIC and bladder botox
History of recurrent UTI and urosepsis
Has been having increasing difficulty with self catheterization
Admitted for urosepsis
CTAP showing chronic left hydroureteronephrosis
Bladder read as being mildly distended. Measures approx 900cc
- 14Fr Bermudez placed
- Recommend discharge with bermudez catheter in place to allow healing of any false passage
- Pending cystoscopy and bladder botox with Dr. Ernandez during which she will assess for urethral stricture, trauma, or false passage
- Continue abx pending cultures, recommend total 10-14 day abx course for complicated UTI
Patient and family prefer not to be discharged with bermudez
Discussed risk of recurrent UTIs if he is not catheterizing successfully
He could resume CIC at discharge, but would need to have post-cath PVR bladder scans at least 2-3x to confirm adequate emptying prior to discharge
Better options would be indwelling bermudez to a leg bag, or bermudez that is capped but that he can uncap to drain every 3-4 hours
[2024-11-24] MEDS: LR 1000 IV (22:28)
[2024-11-24] MEDS: ROCEPHIN 1000 MG IV (22:28)
[2024-11-24] MEDS: DITROPAN 2.5 MG PO (22:52)
[2024-11-24] MEDS: BUSPAR 10 MG PO (22:52)
[2024-11-24] MEDS: LAMICTAL 150 MG PO (22:53)
[2024-11-24] MEDS: LIORESAL 7.5 MG PO (22:54)
[2024-11-24] MEDS: MELATONIN 9 MG PO (22:55)
[2024-11-24] MEDS: REMERON 45 MG PO (22:55)
[2024-11-25] VITALS (25 sets, daily range): BP systolic 92–128; BP diastolic 40–94; BMI 22.0; BMI 21.7
[2024-11-25] MEDS: NICORETTE 2 MG PO ×4 (02:57→20:38)
[2024-11-25] MEDS: TYLENOL 650 MG PO ×2 (06:48→19:02)
[2024-11-25 07:39] LABS: Hematocrit 31.3 % (39.0-52.0); Hemoglobin 10.3 g/dL (13.0-18.0); Mean Corp Hgb Conc. 32.9 g/dL (33.0-37.0); Mean Corpuscular Volume 89.2 fL (80.0-94.0); Platelet Count 121 10^3/uL (130-400); Red Cell Dist. Width 14.1 % (11.5-14.5)
[2024-11-25 07:49] LABS: Blood Urea Nitrogen 12 mg/dl (9-20); Calcium 8.7 mg/dl (8.4-10.2); Carbon Dioxide 23 mmol/L (22-30); Chloride 105 mmol/L (98-107); Estimated Creatinine Clearance > 125 ml/min; Glucose 74 mg/dl (70-99); Potassium 4.2 mmol/L (3.5-5.1); Sodium 135 mmol/L (135-145); eGFR > 60.00
[2024-11-25] MEDS: PROTONIX 40 MG PO (08:59)
[2024-11-25] MEDS: MIRALAX 17 GRAMS PO (08:59)
[2024-11-25] MEDS: BUSPAR 10 MG PO ×2 (09:01→20:24)
[2024-11-25] MEDS: ATIVAN 1 MG PO ×2 (09:02→19:02)
[2024-11-25] MEDS: LAMICTAL 150 MG PO ×2 (09:02→20:25)
[2024-11-25] MEDS: LR 1000 IV ×3 (09:04→20:26)
--- NOTE | 2024-11-25 09:23 | CON.PUL ---
Consultation
Consultation Request
Date/Time Consultation Requested: 11/25/24
Date/Time Consultation Performed: 11/25/24
Performing Provider: Elaina
Reason for Consultation: Vent management
Medical History
-
History of Present Illness:
Patient is a 19-year-old male with previous history of chronic hypercapnic respiratory failure status post recent trach and PEG, Sabas disease, leukodystrophy, seizure disorder, neurogenic bladder requiring straight cath presenting to ER with
fever. He has intermittent straight caths every 3-4 hours during the day, started having difficulty with urinary output. Had a fever at home with development of cloudy, malodorous urine. He is admitted here for UTI.
Following his tracheostomy he has been doing well with using trach collar during the day and vent at night. He has had no issues with breathing since his discharge from [facility].
Past Medical History
Past Medical History: Other (see list below)
Social History
Tobacco: Non-smoker
Alcohol: None
Drug: None
Allergies / Home Medications
Allergies
Allergy/AdvReac Type Severity Reaction Status Date / Time
cat dander Allergy Unknown Verified 11/24/24 10:23
dog dander Allergy Unknown Verified 11/24/24 10:23
grass pollen Allergy Unknown Verified 11/24/24 10:23
horse dander Allergy Unknown Verified 11/24/24 10:23
NSAIDS (Non-Steroidal Allergy Avoids due Verified 11/24/24 10:23
Anti-Inflamma to
solitary
kidney
silver (From Tegaderm AG Allergy SENSITIVITY Verified 11/24/24 21:41
Mesh)
tree and shrub pollen Allergy Unknown Verified 11/24/24 10:23
Home Medications
�Medication �Instructions �Recorded �Confirmed �Last Taken �Type
cholecalciferol (vitamin D3) 25 50 mcg PO DAILY Supplement 11/11/20 11/24/24 11/24/24 History
mcg (1,000 unit) tablet (Vitamin
D3)
ferrous sulfate 325 mg (65 mg 325 mg PO DAILY Supplement 02/26/23 11/24/24 11/24/24 History
iron) tablet
omeprazole 40 mg capsule,delayed 40 mg PO DAILY GERD 02/26/23 11/24/24 11/23/24 History
release
vibegron 75 mg tablet (Gemtesa) 75 mg PO DAILY OVERACTIVE BLADDER 02/26/23 11/24/24 11/24/24 History
fluticasone propionate 50 1 spray intranasal DAILY 09/06/24 11/24/24 11/24/24 History
mcg/actuation nasal
spray,suspension
lamotrigine 150 mg tablet 150 mg PO BID Seizures 09/06/24 11/24/24 11/24/24 History
(Lamictal)
methenamine hippurate 1 gram tablet 1 g PO BID Infection 09/06/24 11/24/24 11/24/24 History
mirtazapine 15 mg tablet 45 mg PO HS Sleep 09/06/24 11/24/24 11/23/24 History
nicotine (polacrilex) 2 mg buccal 2 mg buccal Q3HPRN PRN stop smoking 09/06/24 11/24/24 11/24/24 History
lozenge
Cranberry (Ellura) 72 mg PO DAILY 11/24/24 11/24/24 11/24/24 History
Fiber Gummies 3 gummy PO DAILY 11/24/24 11/24/24 11/24/24 History
acetaminophen 325 mg tablet 650 mg PO Q6HPRN PRN mild 11/24/24 11/24/24 11/24/24 History
(Tylenol) pain/fever
albuterol sulfate 90 mcg/actuation 2 puff inhalation R TID 11/24/24 11/24/24 11/24/24 History
aerosol inhaler
azelastine 137 mcg (0.1 %) nasal 2 spray intranasal BID 11/24/24 11/24/24 11/24/24 History
spray
baclofen 5 mg tablet 7.5 mg PO BID 11/24/24 11/24/24 11/24/24 History
buspirone 10 mg tablet 10 mg PO BID 11/24/24 11/24/24 11/24/24 History
carboxymethylcellulose sodium 0.5 1 - 2 drp BOTH EYES DAILYPRN PRN 11/24/24 11/24/24 Unknown History
% eye drops in a dropperette dry eyes
(Refresh Plus)
docusate sodium 283 mg/5 mL enema 283 mg DE DAILYPRN PRN constipation 11/24/24 11/24/24 11/18/24 History
(Enemeez)
lorazepam 1 mg tablet 1 mg PO [id number] PRN anxiety 11/24/24 11/24/24 11/23/24 History
melatonin 3 mg tablet 9 mg PO HS 11/24/24 11/24/24 11/23/24 History
nitrofurantoin 100 mg PO BID 11/24/24 11/24/24 11/23/24 History
monohydrate/macrocrystals 100 mg
capsule
oxybutynin chloride 5 mg 5 mg PO HS 11/24/24 11/24/24 11/23/24 History
tablet,extended release 24 hr
polyethylene glycol 3350 17 gram 17 g PO DAILY 11/24/24 11/24/24 11/23/24 History
oral powder packet (Miralax)
sodium chloride 0.9 % for 0 ml inhalation R Q4HPRN PRN sob 11/24/24 11/24/24 11/19/24 History
nebulization
therapeutic multivitamin 1 tab PO DAILY 11/24/24 11/24/24 11/24/24 History
Review of Systems
-
History Source: Patient
All other systems: Negative unless noted
Vitals / Labs / Diagnostic Testing
Vital Signs
Temp Pulse Resp BP Pulse Ox
100.8 F H 130 20 128/69 95
11/25/24 07:39 11/25/24 09:00 11/25/24 09:00 11/25/24 09:00 11/25/24 09:00
Lab Data
11/25/24 05:28
11/25/24 05:28
Microbiology
11/24/24 19:16 Nasal Swab Influenza Types A & B (HEIDI) - Final
Negative for Influenza A & B, NAAT
Negative results must be combined with clinical observations
and patient history.
Nucleic Acid Amplification test (NAAT)performed on the
[employer] platform.
Diagnostic Testing:
Physical Exam
-
HEENT: Normocephalic, Anicteric, Moist Mucous Membranes and Tracheotomy
Cardiovascular: S1/S2 and Regular Rhythm
Respiratory: Clear and Non-Labored Respirations
GI: Soft, Non Distended and Non Tender
Neurology: Awake, Alert, Oriented and Other (weakness noted)
Skin: Warm, Dry and Good Color
General: Comfortable and Other (NAD)
Assessment
-
Patient is a 19-year-old male with previous history of chronic hypercapnic respiratory failure status post recent trach and PEG, Sabas disease, leukodystrophy, seizure disorder, neurogenic bladder requiring straight cath presenting to ER with
fever. He has intermittent straight caths every 3-4 hours during the day, started having difficulty with urinary output. Had a fever at home with development of cloudy, malodorous urine. He is admitted here for UTI.
Following his tracheostomy he has been doing well with using trach collar during the day and vent at night. He has had no issues with breathing since his discharge from [facility]. We are consulted for vent management 11/25/2024.
Chronic hypercapnic respiratory failure status post trach and PEG at [facility]
Chronic vent use at night
UTI
Fever
Conditions present prior to admission
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
Seizure disorder
Aspiration pneumonitis
Asthma
GERD
Chronic constipation
Bilateral hip dysplasia
Plan
No oxygen was needed on admission, currently saturating >90% on RA
He generally has been trach to room air during the day and vent at night at home
Prior history of lung disease is noted as above
Doing well since trach placed
Continue routine trach care, PMV to be ordered at bedside
Vent orders placed for qHS and PRN
Speech eval if needed
ETCO2 monitoring
ABG PRN
CXR/CT obtained indicating no acute process or PNA
Other imaging reviewed
UTI noted, on IV abx
Once transitioned to PO and fevers are resolved can eval to d/c home
Discussed plan of care with patient and mother at bedside
We will follow
Diagnostic Data
CXR 11/24/24-No acute cardiopulmonary process.
Chest x-ray 09/06/24-mild elevation right hemidiaphragm
Chest x-ray 09/09/2024-minimal retrocardiac opacification possible atelectasis or pneumonia
CT chest 09/08/2024-no evidence for pulmonary embolism, bilateral lower lobe consolidation suspicious for pneumonia
CT head 09/08/2024- mild diffuse cerebral edema
Echo:
PFT's:
Reports and relevant images were personally reviewed.
Total time spent on this consultation __55__ minutes which includes review of history, physical exam, medications, laboratory data, personal review of imaging, extensive review of outpatient records, discussion with care team and respiratory therapy.
--- NOTE | 2024-11-25 10:03 | CON.ID ---
Consultation
-
Date/Time Consultation Requested: November 25, 2024 0738
Date/Time Consultation Performed: November 25, 2024 1015
Requesting Provider: Dr. Mo Kraus
Performing Provider: Dr. Miladis Heath
Reason for Consultation: Fever
Chief Complaint / Past History
Chief Complaint
Fever
History of Present Illness
History obtained from patient and from mom at bedside. 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 2 days ago had problems with
urine and self catheterization, difficulty inserting the catheter with little urine output. He then noted hematuria. Next day he developed and chills. In the ER Tmax 104.3, WBC 19.4. CAT scan of the abdomen and pelvis mildly distended urinary
bladder with stranding, mild left hydroureteronephrosis. He received Cipro been started on ceftriaxone. Urology placed Lozano. He is feeling better today. He has history of recurrent UTI which improved on methenamine.
Past History
Additional Past Medical History:
Sabas Disease/leukodystrophy
Respiratory failure s/p recent trach/PEG at [facility] September 2024
Seizure disorder
Congenital absent right kidney
New-onset seizure (02/2023)
Neurogenic bladder - intermittent self-cath
Anxiety/depression
Allergy History:
cat dander Allergy (Verified 11/24/24 10:23)
Unknown
dog dander Allergy (Verified 11/24/24 10:23)
Unknown
grass pollen Allergy (Verified 11/24/24 10:23)
Unknown
horse dander Allergy (Verified 11/24/24 10:23)
Unknown
NSAIDS (Non-Steroidal Anti-Inflamma Allergy (Verified 11/24/24 10:23)
Avoids due to solitary kidney
silver (From Tegaderm AG Mesh) Allergy (Verified 11/24/24 21:41)
SENSITIVITY
tree and shrub pollen Allergy (Verified 11/24/24 10:23)
Unknown
Medications Reviewed: Yes
Current Antibiotics:
Ceftriaxone
Social History
Tobacco: Former Smoker (nicotine and THC)
Alcohol: Occasional
Drug: None
Living: With Family
Family History
Family History: Not Pertinent
Review of Systems
Review of Systems
General: Fever and Chills
HEENT: Negative Headache
Respiratory: Negative Cough
Gasteroenterology: Negative Nausea or Vomiting
Genital / Urological: Negative Flank Pain
Endocrine: Weakness
Neurological: Negative Dizziness
All systems: All other systems were reviewed and were negative
Vital Signs
Temp Pulse Resp BP Pulse Ox
100.8 F H 130 20 128/69 95
11/25/24 07:39 11/25/24 09:00 11/25/24 09:00 11/25/24 09:00 11/25/24 09:00
Selected Entries
11/24/24
16:40
Temp 104.3 F H
Physical Exam
Physical Exam
Constitutional: No Acute Distress and Chronically Ill
Eyes: No Conjunctival Hemorrhage and Sclera Anicteric
Cardiovascular: Regular Rate and S1/S2
Pulmonary: Coarse (bases) and Other (Trach site: trach collar oxygen)
Gastrointestinal: Soft, Non Tender, Non Distended and Other (PEG intact)
Genito-Urinary: Lozano and Clear Urine; Negative Suprapubic Tenderness
Extremities: Negative Edema
Neurological: AO x 3
Lab / Diagnostic Study Results
11/25/24 05:28
11/25/24 05:28
Abs Immat Gran (auto) 0.2 10^3/uL (0-0.05) H 11/24/24 12:07
Absolute Neuts (auto) 17.0 10^3/uL (1.4-6.5) H 11/24/24 12:07
Absolute Lymphs (auto) 1.3 10^3/uL (1.2-3.4) 11/24/24 12:07
Absolute Monos (auto) 0.8 10^3/uL (0.1-0.6) H 11/24/24 12:07
Absolute Basos (auto) 0.1 10^3/uL (0-0.2) 11/24/24 12:07
Immature Gran % 1.0 % (0-0.5) H 11/24/24 12:07
Neutrophils % 87.4 % (42.2-75.2) H 11/24/24 12:07
Lymphocytes % 6.6 % (20.5-51.1) L 11/24/24 12:07
Monocytes % 4.1 % (1.7-9.3) 11/24/24 12:07
Eosinophils % 0.6 % (0-6) 11/24/24 12:07
Basophils % 0.3 % (0-2) 11/24/24 12:07
Lactic Acid Cancelled 11/24/24 15:15
Ur Squamous Epith Cells 3-5 /LPF (Few) 11/24/24 12:55
Microbiology Results
Micro:
11/24/24 19:16 Influenza Types A & B (HEIDI) - Final
Nasal Swab Negative for Influenza A & B, NAAT
Negative results must be combined with clinical observations
and patient history.
Nucleic Acid Amplification test (NAAT)performed on the
[employer] platform.
11/24/24 12:55 Urine Culture - Pending
Urine
11/24/24 12:07 Blood Culture - Pending
Blood/Venous
11/24/24 12:07 Blood Culture - Pending
Blood/Venous
11/24/24 CT a/p: The urinary bladder is mildly distended with areas of mild perivesicular stranding inferiorly suggestive of cystitis. Recommend correlation with urinalysis. The right kidney is absent with mild left-sided hydroureteronephrosis,
unchanged from prior. There is opacities within the bilateral lower lobes of the lungs with findings suspicious for left lower lobe pneumonia. Percutaneous gastrostomy tube is present within the stomach.
11/24/24 CXR: No acute cardiopulmonary process.
Assessment / Plan
# Pseudomonas complicated UTI
# Neurogenic bladder with recent traumatic urine self-cancerization
# Fever
# Leukocytosis resolved
# Sabas's syndrome/leukodystrophy
# Recent trach/PEG on nocturnal vent
- Blood cx's neg to date
- Ucx Pseudomonas
- Dc ceftriaxone.
- Start cefepime 2g IV q8h.
- Trend temps.
[2024-11-25] MEDS: LIORESAL 7.5 MG PO ×2 (10:55→20:26)
--- NOTE | 2024-11-25 11:03 | CM ---
CM reviewed chart, patient seen bedside with mother. The patient is a 19-year-old male with a history of alejandro disease, subsequent trach/PEG most recent hospitalization, self-caths with h/o urinary tract infections who presented due to fever and
possible urinary tract infection.
Patient resides with his mother and father in a two story home, ramp to enter, stairglide to second floor. Patient has three wheelchairs at home, transport chair, transfer bench into tub in bathroom. Mother reports patient recently started receiving
16 hrs nursing care a week through [facility] (as of last week). Mother reports patient was most recently in the Progressive Care Unit at [facility]. PCP confirmed [facility] Irvin, pharmacy [facility] on [address], confirms prescription coverage. Per Pulm
consult- patient using trach collar during day, vent at night. Mother denies insecurities at home. CM will continue to follow for all discharge planning needs.
Plan; home with family likely, return services with [facility]
--- NOTE | 2024-11-25 11:58 | W.PN.HOSP.TC ---
Today's Communication/Plan
-
IV antibiotics. IV fluids
Assessment / Plan
Assessment / Plan
Physical exam:
General: Chronically ill
HEENT: Tracheostomy in place. Normocephalic, Atraumatic and Moist Mucous Membranes
Respiratory: Clear to Auscultation; Negative Wheezes, Rales or Rhonchi
Cardiac: Regular Rhythm and S1/S2
GI: Soft, Nontender and Nondistended
Musculoskeletal: No Clubbing, No Cyanosis and No Edema
Neuro: Awake, Alert and Oriented, no new neurological deficit but generalized weakness and contracture legs chronic
Psych: Calm
A/P:
Sepsis due to suspected complicated catheter associated UTI:
Continue IV antibiotics but change Rocephin to IV cefepime since urine cultures growing Pseudomonas
Continue IV fluids
ID consult-discussed with ID via [place] text
Follow-up cultures final report
Discussed with mother at bedside
Chronic hypercapnic respiratory failure:
Status post trach
On chronic mechanical ventilation use at nighttime and as needed
Pulmonary consult appreciated
Trach care
Neurogenic bladder with chronic urinary retention/ History of solitary left kidney:
Managed with CIC and bladder botox--> Lozano catheter placed
Urology consult appreciated
Dysphagia:
On PEG
Hyponatremia:
Seizure disorder:
Continue Lamictal
Depression anxiety:
Continue mirtazapine, sertraline, buspirone, and other benzos as needed
Other medical problems:
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
Leukodystrophy
Asthma
Constipation
GERD
Bilateral hip dysplasia
DVT prophylaxis:
Lovenox SQ
CODE STATUS:
Full code
Total time spent on today's encounter was 52 minutes which included time spent in counseling the patient/family regarding diagnosis and treatment plan as listed above, goals of care, and symptom management. Case was discussed with nursing staff,
specialists, and care coordinators/case management. All labs and imaging personally reviewed by me. Remainder the time spent in detailed review of previous records, lab data, imaging, and other medical provider documentation.
Anticipated Discharge: 24 - 48 hours
Subjective/Interval History
-
Date of Service: November 25, 2024
Patient still tachycardic. Denies nausea or vomiting. Tmax 101.1 Fahrenheit today.
Objective Data
-
Labs:
Laboratory Results
11/25/24
05:28
WBC 10.7
Hgb 10.3 L
Hct 31.3 L
Plt Count 121 L D
Sodium 135
Potassium 4.2
Chloride 105
Carbon Dioxide 23
BUN 12
Creatinine 0.8
Glucose 74
Calcium 8.7
Vital Signs:
Vital Signs
Temp Pulse Resp BP Pulse Ox
99.5 F 130 20 128/69 95
11/25/24 11:24 11/25/24 09:00 11/25/24 09:00 11/25/24 09:00 11/25/24 09:00
I&O
11/24/24 11/25/24 11/26/24
06:59 06:59 06:59
Intake Total 600 / 600
Output Total 2400 / 2400 200 / 200
Balance -1800 / -1800 -200 / -200
[2024-11-25] MEDS: DITROPAN PO (14:47)
--- NOTE | 2024-11-25 15:25 | PTOTSP ---
Speech Language Pathology
Pt seen for speaking valve evaluation in conjunction with RT. Mother at bedside. Pt with some leak speech at rest with HME in place. Increased vocal intensity noted with finger occlusion. Patient reported that he uses a cap on trach for duration
of day. RT removed HME, and STAND UP COMEDIAN placed speaking valve. Stable vitals noted. Decreased breath support noted, but suspect secondary to Sabas disease, not speaking valve, as pt with difficulty generating a strong cough at baseline. Pt tolerated
speaking valve without difficulty for 20 minutes. Pt requested to leave in place at end of session, and RT and RN notified. Pt dons/doffs cap independently at home and is aware of precautions.
Pt also seen for clinical bedside swallow evaluation. Pt reported he had 2 VSEs completed during recent extended hospitalization at [facility]. First was approximately 2 weeks after trach placement with penetration of thin liquids to level of vocal
folds with recommendations for regular solids/thickened liquids. Repeat VSE recommended upgrade to regular solids/thin liquids. P.O. trials of regular solids and thin liquids provided. Adequate mastication, bolus formation, and A-P transit noted.
No overt signs of aspiration.
Recommend:
(1) Regular solids/thin liquids
(2) General aspiration precautions
(3) Meds as tolerated
(4) STAND UP COMEDIAN to continue to follow, likely briefly
[2024-11-25] MEDS: MAXIPIME 2000 MG IV ×2 (16:12→23:37)
[2024-11-25] MEDS: STERILE WATER FOR INJECTION 10 ML IV ×2 (16:13→23:37)
--- NOTE | 2024-11-25 17:16 | RESPNOTE ---
At bedside, with speech therapy for PMV placement. Cuff was checked to make sure it was deflated. PMV placed, pt began to speak. Stated it felt comfortable. Has used in past at [facility], however uses a cap on his trach ( Mom will bring in caps from
home, if he wishes to use them later) at home, or a HME connected to an inline suction. Pt does not wish to have humidity added via trach collar at this time. RN made aware. Pt appears comfortable post 10 minutes of placement, will continue to
monitor pt. RN was instructed of pt becomes extremely SOB, to remove PMV and contact respiratory
[2024-11-25] MEDS: LOVENOX 40 MG SC (17:58)
--- NOTE | 2024-11-25 19:16 | W.PN.URO.CBU ---
Today's Communication / Plan
-
- Recommend discharge with bermudez catheter in place to allow healing of any false passage/trauma
- Patient and family agreeable to discharge with bermudez catheter in place
- Continue abx pending cultures, course per ID
Will sign off - please call with any questions
Assessment / Plan
-
19M with Sabas disease, leukodystrophy, known to Dr. Ernandez for neurogenic bladder, solitary kidney, chronic urinary retention managed with CIC and bladder botox
History of recurrent UTI and urosepsis
Has been having increasing difficulty with self catheterization
Admitted for urosepsis
CTAP showing chronic left hydroureteronephrosis
Bladder read as being mildly distended. Measures approx 900cc
- 14Fr Bermudez placed
- Recommend discharge with bermudez catheter in place to allow healing of any false passage/trauma
- Pending cystoscopy and bladder botox with Dr. Ernandez during which she will assess for urethral stricture, trauma, or false passage
- Continue abx pending cultures, course per ID
Patient and family now agreeable to discharge with bermudez catheter in place
Diagnosis
-
Date of Service: November 25, 2024
-
Patient Diagnosis:
Neurogenic bladder
Urosepsis
Urinary retention
Post Op Day:
Subjective
-
feeling better today
tolerating bermudez
Objective
-
Vital Signs
Temp Pulse Resp BP Pulse Ox
100.0 F 129 24 121/57 96
11/25/24 18:51 11/25/24 18:46 11/25/24 18:46 11/25/24 18:46 11/25/24 18:00
Intake and Output
11/24/24 11/25/24 11/26/24
06:59 06:59 06:59
Intake Total 600 / 600
Output Total 2400 / 2400 950 / 950
Balance -1800 / -1800 -950 / -950
Intake:
IV fluids (Total) 600 / 600
Lr 1,000 ml @ 125 mls/hr IV . 600 / 600
Q8H [facility] Rx#:[id number]
Output:
Urine, Bermudez 2000 / 2000 950 / 950
Urine, Voided 400 / 400
Laboratory Results
11/25/24 05:28
11/25/24 05:28
Physical Exam
-
General - no acute distress
Chest - clear bilaterally
Abdomen - soft, non-tender
Bermudez clear
[2024-11-25] MEDS: ATROVENT NEBULES 0.5 MG INH (20:17)
[2024-11-25] MEDS: DITROPAN 5 MG PO (20:26)
[2024-11-25] MEDS: REMERON 45 MG PO (20:27)
[2024-11-25] MEDS: MELATONIN 9 MG PO (20:27)
--- NOTE | 2024-11-25 20:54 | PTCARENOTE ---
Received patient at start of shift, up from ED just prior to start of shift. Patients mother is at bedside. Patient aao x3, able to make needs known. Patient has trach, Passy nancy valve in place, plan to go on ventilatory at bedtime. Patient affect
flat, states he was in the hospital for 2+ months, was home for just over a week and now is back in the hospital. Patient verbalizes feeling anxious and interested in discharge plan. HR tachy 120's, 95% ra, bs active x4, bermudez cath patent and
draining clear yellow urine. Patient has LR at 125ml to right wrist continuous. Call mcpherson within reach, will continue to monitor patient closely.
[2024-11-25] MEDS: ATROVENT NEBULES INH (21:35)
[2024-11-26] VITALS (12 sets, daily range): BP systolic 99–134; BP diastolic 55–80
[2024-11-26] MEDS: LR 1000 IV ×3 (02:49→18:49)
[2024-11-26 05:29] LABS: Hematocrit 30.6 % (39.0-52.0); Hemoglobin 9.8 g/dL (13.0-18.0); Mean Corp Hgb Conc. 32.0 g/dL (33.0-37.0); Mean Corpuscular Volume 91.6 fL (80.0-94.0); Nucleated Red Blood Cells % 0 % (-); Platelet Count 179 10^3/uL (130-400); Red Cell Dist. Width 14.1 % (11.5-14.5)
[2024-11-26 05:50] LABS: Blood Urea Nitrogen 9 mg/dl (9-20); Calcium 8.6 mg/dl (8.4-10.2); Carbon Dioxide 26 mmol/L (22-30); Chloride 106 mmol/L (98-107); Estimated Creatinine Clearance > 125 ml/min; Glucose 87 mg/dl (70-99); Potassium 4.4 mmol/L (3.5-5.1); Sodium 138 mmol/L (135-145); eGFR > 60.00
[2024-11-26] MEDS: ATROVENT NEBULES INH (07:37)
--- NOTE | 2024-11-26 08:12 | PTCARENOTE ---
Pt AAO3 on RA at this tiome, refused rsp tx, #7 Bivona trac Button G tube not in use. Lozano in place due to UTI and frequent st cath. Pt will not wear a gown but has blankets
[2024-11-26] MEDS: LIORESAL 7.5 MG PO ×2 (08:29→21:50)
[2024-11-26] MEDS: PROTONIX 40 MG PO (08:29)
[2024-11-26] MEDS: LAMICTAL 150 MG PO ×2 (08:30→21:48)
[2024-11-26] MEDS: STERILE WATER FOR INJECTION 10 ML IV ×3 (08:32→23:27)
[2024-11-26] MEDS: MIRALAX 17 GRAMS PO (08:32)
[2024-11-26] MEDS: MAXIPIME 2000 MG IV ×3 (08:32→23:27)
[2024-11-26] MEDS: BUSPAR 10 MG PO ×2 (08:32→21:48)
--- NOTE | 2024-11-26 09:06 | W.PN.ID1 ---
Date of Service
Date of Service: November 26, 2024
Today's Communication
Continue antibiotics. Await sensitivities to guide further antimicrobial selection and potential de-escalation.
Assessment / Plan
# Pseudomonas complicated UTI
# Neurogenic bladder with recent traumatic urine self-cancerization
# Fever; improved
# Leukocytosis resolved
# Sabas's syndrome/leukodystrophy
# Recent trach/PEG on nocturnal vent
- Blood cx's neg to date
- Ucx Pseudomonas; sensitivities pending.
-Continue cefepime 2g IV q8h.
- Trend temps.
Chief Complaint
-: UTI
Subjective / Review of Systems
Review of Systems: No Fever and No Chills
Vital Signs / Physical Exam
Vital Signs
Vital Signs
Temp Pulse Resp BP Pulse Ox
98.8 F 104 17 125/80 96
11/26/24 07:56 11/26/24 08:00 11/26/24 08:00 11/26/24 08:00 11/26/24 08:15
Physical Exam
Constitutional: Comfortable, Chronically Ill and Non-toxic
Eyes: No Conjunctival Hemorrhage
Oropharyngeal: Other (Trach in place with [place] valve)
Cardiovascular: S1/S2; Negative S3/S4
Pulmonary: Coarse and Non Labored
Gastrointestinal: Soft and Non Tender
Genito-Urinary: Lozano and Clear Urine
Extremities: Negative Edema or Erythema
Neurological: Awake and Alert
Objective Data
Lab Data
Lab Results
11/26/24 04:43
11/26/24 04:43
Estimated Creat Clear > 125 ml/min 11/26/24 04:43
Lactic Acid Cancelled 11/24/24 15:15
Total Bilirubin 0.7 mg/dl (0.2-1.3) 11/24/24 12:55
AST 22 U/L (17-59) 11/24/24 12:55
ALT 16 U/L (0-50) 11/24/24 12:55
Alkaline Phosphatase 86 U/L (38-126) 11/24/24 12:55
Most recent labs reviewed.
Micro Results:
11/24/24 12:07 Blood Culture - Preliminary
Blood/Venous No Growth in 24 hours- Final report to follow
11/24/24 12:07 Blood Culture - Preliminary
Blood/Venous No Growth in 24 hours- Final report to follow
11/24/24 12:55 Urine Culture - Preliminary
Urine Pseudomonas aeruginosa
11/24/24 19:16 Influenza Types A & B (HEIDI) - Final
Nasal Swab Negative for Influenza A & B, NAAT
Negative results must be combined with clinical observations
and patient history.
Nucleic Acid Amplification test (NAAT)performed on the
[employer] platform.
11/24/24 CT a/p: The urinary bladder is mildly distended with areas of mild perivesicular stranding inferiorly suggestive of cystitis. Recommend correlation with urinalysis. The right kidney is absent with mild left-sided hydroureteronephrosis,
unchanged from prior. There is opacities within the bilateral lower lobes of the lungs with findings suspicious for left lower lobe pneumonia. Percutaneous gastrostomy tube is present within the stomach.
11/24/24 CXR: No acute cardiopulmonary process.
[2024-11-26] MEDS: NON-FORMULARY ITEM 1 MG PO ×2 (10:01→18:51)
--- NOTE | 2024-11-26 10:08 | W.PN.HOSP.TC ---
Today's Communication/Plan
-
IV antibiotics. IV fluid
Assessment / Plan
Assessment / Plan
Physical exam:
General: Chronically ill
HEENT: Tracheostomy in place. Normocephalic, Atraumatic and Moist Mucous Membranes
Respiratory: Clear to Auscultation; Negative Wheezes, Rales or Rhonchi
Cardiac: Regular Rhythm and S1/S2
GI: Soft, Nontender and Nondistended
Musculoskeletal: No Clubbing, No Cyanosis and No Edema
Neuro: Awake, Alert and Oriented, no new neurological deficit but generalized weakness and contracture legs chronic
Psych: Calm
A/P:
Sepsis due to suspected complicated catheter associated UTI:
Continue IV of IV cefepime since urine cultures growing Pseudomonas but sensitivities are not back yet
Continue IV fluids
ID consult appreciated
Follow-up cultures final report
Discussed with mother at bedside-she wants to get her son out of the hospital soon as possible but I explained to her that we still treating him actively and waiting for cultures to come back so he is not medically ready for discharge at the moment.
I also explained to her and patient plan of care and details of hospitalization.
Chronic hypercapnic respiratory failure:
Status post trach
On chronic mechanical ventilation use at nighttime and as needed
Pulmonary consult appreciated
Trach care
Neurogenic bladder with chronic urinary retention/ History of solitary left kidney:
Managed with CIC and bladder botox--> Lozano catheter placed
Urology consult appreciated
No dysphagia:
On PEG in case he needs it as per family
Hyponatremia:
Improved
Today 138
Seizure disorder:
Continue Lamictal
Depression anxiety:
Continue mirtazapine, sertraline, buspirone, and other benzos as needed
Other medical problems:
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
Leukodystrophy
Asthma
Constipation
GERD
Bilateral hip dysplasia
DVT prophylaxis:
Lovenox SQ
CODE STATUS:
Full code
Total time spent on today's encounter was 52 minutes which included time spent in counseling the patient/family regarding diagnosis and treatment plan as listed above, goals of care, and symptom management. Case was discussed with nursing staff,
specialists, and care coordinators/case management. All labs and imaging personally reviewed by me. Remainder the time spent in detailed review of previous records, lab data, imaging, and other medical provider documentation.
Anticipated Discharge: 24 - 48 hours
Subjective/Interval History
-
Date of Service: November 26, 2024
Patient feels well. Continues to have fever with Tmax 101.3 Fahrenheit today. Still tachycardic at times but less. Borderline hypotensive.
Objective Data
-
Labs:
Laboratory Results
11/26/24
04:43
WBC 8.3
Hgb 9.8 L
Hct 30.6 L
Plt Count 179 D
Sodium 138
Potassium 4.4
Chloride 106
Carbon Dioxide 26
BUN 9
Creatinine 0.7
Glucose 87
Calcium 8.6
Vital Signs:
Vital Signs
Temp Pulse Resp BP Pulse Ox
98.8 F 104 17 125/80 96
11/26/24 07:56 11/26/24 08:00 11/26/24 08:00 11/26/24 08:00 11/26/24 08:15
I&O
11/25/24 11/26/24 11/27/24
06:59 06:59 06:59
Intake Total 600 / 600 1740 / 1740
Output Total 2400 / 2400 2450 / 2450
Balance -1800 / -1800 -710 / -710
[2024-11-26] MEDS: ATIVAN 1 MG PO (12:18)
[2024-11-26] MEDS: TYLENOL 650 MG PO (12:19)
--- NOTE | 2024-11-26 12:35 | PTCARENOTE ---
Pt PO [id number] given Tylenol Pt asked for Ativan due to anxiety
--- NOTE | 2024-11-26 16:20 | W.PN.PUL3 ---
Today's Communication / Plan
-
- Continue trach care, suctioning frequency per patient
- Room air during daytime, continue pressure support ventilator support at night
Assessment
-
Patient is a 19-year-old male with previous history of chronic hypercapnic respiratory failure status post recent trach and PEG, Sabas disease, leukodystrophy, seizure disorder, neurogenic bladder requiring straight cath presenting to ER with
fever. He has intermittent straight caths every 3-4 hours during the day, started having difficulty with urinary output. Had a fever at home with development of cloudy, malodorous urine. He is admitted here for UTI.
Following his tracheostomy he has been doing well with using trach collar during the day and vent at night. He has had no issues with breathing since his discharge from [place]. We are consulted for vent management 11/25/2024.
Chronic hypercapnic respiratory failure status post trach and PEG at [place]
Chronic vent use at night
UTI
Fever
Conditions present prior to admission
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
Seizure disorder
Aspiration pneumonitis
Asthma
GERD
Chronic constipation
Bilateral hip dysplasia
Plan
04/17, RR 12 nightly. Patient has Portex cuffed tube without inner cannula.
No oxygen was needed on admission, currently saturating >90% on RA. Chest x-ray reviewed, unremarkable
He generally has been trach to room air during the day and vent at night at home
Prior history of lung disease is noted as above
Doing well since trach placed
Continue routine trach care, PMV to be ordered at bedside
Vent orders placed for qHS and PRN
Speech eval if needed
ETCO2 monitoring
ABG PRN
CXR/CT obtained indicating no acute process or PNA
Other imaging reviewed
UTI noted, on IV abx
Once transitioned to PO and fevers are resolved can eval to d/c home
Discussed with mother at bedside. Discussed with respiratory therapist.
Diagnostic Data
CXR 11/24/24-No acute cardiopulmonary process.
Chest x-ray 09/06/24-mild elevation right hemidiaphragm
Chest x-ray 09/09/2024-minimal retrocardiac opacification possible atelectasis or pneumonia
CT chest 09/08/2024-no evidence for pulmonary embolism, bilateral lower lobe consolidation suspicious for pneumonia
CT head 09/08/2024- mild diffuse cerebral edema
Echo:
PFT's:
Reports and relevant images were personally reviewed.
Total time spent on this consultation __36__ minutes which includes review of history, physical exam, medications, laboratory data, personal review of imaging, extensive review of outpatient records, discussion with care team and respiratory therapy.
Subjective Data
-
Date of Service:
Date of Service: November 26, 2024
Subjective:
Patient comfortably lying in bed in no acute distress, currently on room air, trach in place.
Review of Systems
Genitourinary: Other (All 14 systems reviewed and negative except as stated above in the history of present illness.)
Objective Data
Data Reviewed
Vital Signs / I&O / Oxygen:
Vital Signs
Temp Pulse Resp BP Pulse Ox
101.3 F H 121 18 123/65 91
11/26/24 11:32 11/26/24 15:00 11/26/24 15:00 11/26/24 14:00 11/26/24 15:00
Intake and Output
11/25/24 11/26/24 11/27/24
06:59 06:59 06:59
Intake Total 600 / 600 1740 / 1740
Output Total 2400 / 2400 2450 / 2450
Balance -1800 / -1800 -710 / -710
SaO2 [CPAP/PSV] 96
SaO2 91
Physical Exam
General: Comfortable
HEENT: Normocephalic
Cardiovascular: S1-S2 and Regular Rhythm
Respiratory: Clear and Non-Labored Respirations
GI: Soft and Non Distended
Neurology: Awake and Alert
Skin: Warm
Labs/Micro/Reports
Lab Data
11/26/24 04:43
11/26/24 04:43
Microbiology
11/24/24 12:07 Blood/Venous Blood Culture - Preliminary
No Growth in 48 hours- Final report to follow
11/24/24 12:07 Blood/Venous Blood Culture - Preliminary
No Growth in 48 hours- Final report to follow
11/24/24 12:55 Urine Urine Culture - Preliminary
Pseudomonas aeruginosa
11/24/24 19:16 Nasal Swab Influenza Types A & B (HEIDI) - Final
Negative for Influenza A & B, NAAT
Negative results must be combined with clinical observations
and patient history.
Nucleic Acid Amplification test (NAAT)performed on the
[employer] platform.
[2024-11-26] MEDS: LOVENOX 40 MG SC (16:36)
[2024-11-26] MEDS: MELATONIN 9 MG PO (21:51)
[2024-11-26] MEDS: REMERON 45 MG PO (21:52)
[2024-11-26] MEDS: DITROPAN 5 MG PO (21:56)
[2024-11-26] MEDS: OCEAN, SALINE MIST 1 SPRAYS NASAL (22:18)
[2024-11-27] VITALS (12 sets, daily range): BP systolic 121–137; BP diastolic 68–93
[2024-11-27] MEDS: LR 1000 IV ×2 (02:41→11:12)
--- NOTE | 2024-11-27 03:02 | PTCARENOTE ---
pt snoring; periods of apnea. Resp rate 9 bpm with pox dropping to 91%. Arouses easily and pox recovers to 93-95% on PS 12/7. FiO2 21%. Continuing to monitor.
--- NOTE | 2024-11-27 08:26 | W.PN.HOSP.TC ---
Today's Communication/Plan
-
Change IV antibiotics to IV meropenem. Discharge planning
Assessment / Plan
Assessment / Plan
Physical exam:
General: Chronically ill
HEENT: Tracheostomy in place. Normocephalic, Atraumatic and Moist Mucous Membranes
Respiratory: Clear to Auscultation; Negative Wheezes, Rales or Rhonchi
Cardiac: Regular Rhythm and S1/S2
GI: Soft, Nontender and Nondistended
Musculoskeletal: No Clubbing, No Cyanosis and No Edema
Neuro: Awake, Alert and Oriented, no new neurological deficit but generalized weakness and contracture legs chronic
Psych: Calm
A/P:
Sepsis due to suspected complicated catheter associated UTI:
Urine cultures is back and intermediate resistant to cefepime. Change IV antibiotics to IV meropenem.
Continue IV fluids for one more day
ID consult appreciated
Discussed with case packer and sealer today and they will discussed with mother and patient today.
Discussed with ID today (Dr. Marcum) and he also discussed with mother and patient and stated the same as I said, it is unlikely for discharge today. They are arranging for long-term antibiotics.
Discussed with mother at bedside-she wants to get her son out of the hospital today. I explained that is not feasible to arrange for long-term antibiotics today and the earliest would be tomorrow if possible.
Chronic hypercapnic respiratory failure:
Status post trach
On chronic mechanical ventilation use at nighttime and as needed
Pulmonary consult appreciated
Trach care
Neurogenic bladder with chronic urinary retention/ History of solitary left kidney:
Managed with CIC and bladder botox--> Lozano catheter placed
Urology consult appreciated
No dysphagia:
On PEG in case he needs it as per family
Hyponatremia:
Improved
Yesterday 138
Will recheck in a.m.
Anemia:
Hemoglobin 9.8 yesterday
Will recheck in a.m.
Seizure disorder:
Continue Lamictal
Depression anxiety:
Continue mirtazapine, sertraline, buspirone, and other benzos as needed
Other medical problems:
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
Leukodystrophy
Asthma
Constipation
GERD
Bilateral hip dysplasia
DVT prophylaxis:
Lovenox SQ
CODE STATUS:
Full code
Time spent 38 minutes
Anticipated Discharge: Within 24 hours
Subjective/Interval History
-
Date of Service: November 27, 2024
Patient with last fever yesterday Tmax 101.3 Fahrenheit. Today afebrile and feels better overall.
Objective Data
-
Vital Signs:
Vital Signs
Temp Pulse Resp BP Pulse Ox
97.5 F 116 15 124/68 92
11/27/24 03:38 11/27/24 06:00 11/27/24 06:00 11/27/24 06:00 11/27/24 06:00
I&O
11/26/24 11/27/24 11/28/24
06:59 06:59 06:59
Intake Total 1740 / 1740 3150 / 3150
Output Total 2450 / 2450 4000 / 4000
Balance -710 / -710 -850 / -850
--- NOTE | 2024-11-27 09:02 | W.PN.ID1 ---
Addendum entered and electronically signed by Da Marcum DO 11/27/24 11:25:
Informed by nursing that patient requests discharge to home today.
Met with patient and mother at the bedside. Explained the situation regarding the finding of MDRO Pseudomonas, with no oral options. Explained the need to continue to treat this complicated urinary tract infection, and that home IV antibiotics
would be necessary. Patient notes that he would like to be discharged today, but accepts that a safe discharge is paramount, and will take at least an additional 24 hours to set up.
Will place home infusion sheet on chart, and inform case management up its presence to facilitate and expedite discharge.
Original Note:
Date of Service
Date of Service: November 27, 2024
Today's Communication
Continue abx. Transition to meropenem.
Assessment / Plan
# Pseudomonas (MDRO) complicated UTI
# Neurogenic bladder with recent traumatic urine self-cancerization
# Fever; improved
# Leukocytosis resolved
# Sabas's syndrome/leukodystrophy
# Recent trach/PEG on nocturnal vent
- Blood cx's neg to date
- Ucx: Pseudomonas; sensitivities reviewed.
Cefepime noted to be intermediate. Transition to meropenem.
- Trend temps.
Chief Complaint
-: UTI
Subjective / Review of Systems
Patient seen and examined. No significant issues overnight. Temperature to 101.3 yesterday. No fevers overnight.
Vital Signs / Physical Exam
Vital Signs
Vital Signs
Temp Pulse Resp BP Pulse Ox
97.5 F 116 15 124/68 92
11/27/24 03:38 11/27/24 06:00 11/27/24 06:00 11/27/24 06:00 11/27/24 06:00
Physical Exam
Constitutional: Comfortable, Chronically Ill and Non-toxic
Oropharyngeal: Other (Trach in place)
Cardiovascular: S1/S2; Negative S3/S4
Pulmonary: Coarse and Non Labored
Gastrointestinal: Soft and Non Distended
Genito-Urinary: Lozano and Clear Urine
Extremities: Negative Edema or Erythema
Psychological: Calm
Objective Data
Lab Data
Lab Results
11/26/24 04:43
11/26/24 04:43
Estimated Creat Clear > 125 ml/min 11/26/24 04:43
Lactic Acid Cancelled 11/24/24 15:15
Total Bilirubin 0.7 mg/dl (0.2-1.3) 11/24/24 12:55
AST 22 U/L (17-59) 11/24/24 12:55
ALT 16 U/L (0-50) 11/24/24 12:55
Alkaline Phosphatase 86 U/L (38-126) 11/24/24 12:55
Most recent labs reviewed.
Micro Results:
11/24/24 12:55 Urine Culture - Preliminary
Urine Pseudomonas aeruginosa
11/24/24 12:07 Blood Culture - Preliminary
Blood/Venous No Growth in 48 hours- Final report to follow
11/24/24 12:07 Blood Culture - Preliminary
Blood/Venous No Growth in 48 hours- Final report to follow
11/24/24 19:16 Influenza Types A & B (HEIDI) - Final
Nasal Swab Negative for Influenza A & B, NAAT
Negative results must be combined with clinical observations
and patient history.
Nucleic Acid Amplification test (NAAT)performed on the
[employer] platform.
Urine Culture Preliminary 11/24/24
CC: 80,000 CFU/ML Pseudomonas aeruginosa *MDRO*
Isolation Precautions Required
Multi drug resistant organism isolated.
Suggest Infectious Disease consult.
Called to [phone] on 11/27/24 at 0837 by [place]
Organism 1 Pseudomonas aeruginosa
1. Pseudomonas aeruginosa
M.I.C. RX
--------- ---
Aztreonam >16 R
Cefepime 16 I
Ceftazidime >16 R
Ciprofloxacin 2 R
Meropenem 2 S
Piperacillin/Tazobactam >64 R
Tobramycin <=2 S
11/24/24 CT a/p: The urinary bladder is mildly distended with areas of mild perivesicular stranding inferiorly suggestive of cystitis. Recommend correlation with urinalysis. The right kidney is absent with mild left-sided hydroureteronephrosis,
unchanged from prior. There is opacities within the bilateral lower lobes of the lungs with findings suspicious for left lower lobe pneumonia. Percutaneous gastrostomy tube is present within the stomach.
11/24/24 CXR: No acute cardiopulmonary process.
[2024-11-27] MEDS: PROTONIX 40 MG PO (10:07)
[2024-11-27] MEDS: BUSPAR 10 MG PO ×2 (10:07→21:20)
[2024-11-27] MEDS: LAMICTAL 150 MG PO ×2 (10:07→21:21)
[2024-11-27] MEDS: LIORESAL 7.5 MG PO ×2 (10:08→21:22)
[2024-11-27] MEDS: STERILE WATER FOR INJECTION 10 ML IV ×3 (10:09→21:33)
[2024-11-27] MEDS: MIRALAX 17 GRAMS PO (10:09)
[2024-11-27] MEDS: MERREM 500 MG IV ×3 (10:09→21:33)
--- NOTE | 2024-11-27 10:09 | W.PN.PUL3 ---
Today's Communication / Plan
-
- Continue home vent settings nightly and room air during daytime
- Pulmonary service will sign off, please call as needed
- Patient will resume follow-up with his tank builder helper postdischarge.
Assessment
-
Patient is a 19-year-old male with previous history of chronic hypercapnic respiratory failure status post recent trach and PEG, Sabas disease, leukodystrophy, seizure disorder, neurogenic bladder requiring straight cath presenting to ER with
fever. He has intermittent straight caths every 3-4 hours during the day, started having difficulty with urinary output. Had a fever at home with development of cloudy, malodorous urine. He is admitted here for UTI.
Following his tracheostomy he has been doing well with using trach collar during the day and vent at night. He has had no issues with breathing since his discharge from [place]. We are consulted for vent management 11/25/2024.
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
Chronic vent use at night
UTI
Fever
Conditions present prior to admission
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
Seizure disorder
Aspiration pneumonitis
Asthma
GERD
Chronic constipation
Bilateral hip dysplasia
Plan
12, RR 12 nightly. Patient has Portex cuffed tube without inner cannula. At baseline patient is on room air during daytime and uses nocturnal pressure support ventilation with backup rate.
No oxygen was needed on admission, currently saturating >90% on RA. Chest x-ray reviewed, unremarkable
He generally has been trach to room air during the day and vent at night at home
Prior history of lung disease is noted as above
Doing well since trach placed
Continue routine trach care, PMV to be ordered at bedside
Vent orders placed for qHS and PRN
Speech eval if needed
ETCO2 monitoring
ABG PRN
CXR/CT obtained indicating no acute process or PNA
Other imaging reviewed
UTI noted, management per ID and primary team
Patient essentially at baseline from pulmonary standpoint. Pulmonary service will sign off, please call as needed
Diagnostic Data
CXR 11/24/24-No acute cardiopulmonary process.
Chest x-ray 09/06/24-mild elevation right hemidiaphragm
Chest x-ray 09/09/2024-minimal retrocardiac opacification possible atelectasis or pneumonia
CT chest 09/08/2024-no evidence for pulmonary embolism, bilateral lower lobe consolidation suspicious for pneumonia
CT head 09/08/2024- mild diffuse cerebral edema
Echo:
PFT's:
Reports and relevant images were personally reviewed.
Total time spent on this consultation __38__ minutes which includes review of history, physical exam, medications, laboratory data, personal review of imaging, extensive review of outpatient records, discussion with care team and respiratory therapy.
Subjective Data
-
Date of Service:
Date of Service: November 27, 2024
Subjective:
Patient comfortably lying in bed in no acute distress, currently mechanically ventilated via tracheostomy tube.
Review of Systems
Genitourinary: Other (Appears comfortable, not in any distress)
Objective Data
Data Reviewed
Vital Signs / I&O / Oxygen:
Vital Signs
Temp Pulse Resp BP Pulse Ox
97.5 F 89 12 124/68 92
11/27/24 03:38 11/27/24 09:33 11/27/24 09:33 11/27/24 06:00 11/27/24 09:33
Intake and Output
11/26/24 11/27/24 11/28/24
06:59 06:59 06:59
Intake Total 1740 / 1740 3150 / 3150
Output Total 2450 / 2450 4000 / 4000
Balance -710 / -710 -850 / -850
SaO2 [CPAP/PSV] 93
SaO2 92
Physical Exam
General: Comfortable
HEENT: Normocephalic
Cardiovascular: S1-S2 and Regular Rhythm
Respiratory: Clear and Non-Labored Respirations
GI: Soft and Non Distended
Skin: Warm
Labs/Micro/Reports
Lab Data
11/26/24 04:43
11/26/24 04:43
Microbiology
11/24/24 12:55 Urine Urine Culture - Preliminary
Pseudomonas aeruginosa
11/24/24 12:07 Blood/Venous Blood Culture - Preliminary
No Growth in 48 hours- Final report to follow
11/24/24 12:07 Blood/Venous Blood Culture - Preliminary
No Growth in 48 hours- Final report to follow
11/24/24 19:16 Nasal Swab Influenza Types A & B (HEIDI) - Final
Negative for Influenza A & B, NAAT
Negative results must be combined with clinical observations
and patient history.
Nucleic Acid Amplification test (NAAT)performed on the
[employer] NOW platform.
[2024-11-27] MEDS: MAXIPIME IV (10:21)
[2024-11-27] MEDS: STERILE WATER FOR INJECTION IV (10:21)
[2024-11-27] MEDS: ATIVAN 1 MG PO ×3 (11:27→23:40)
--- NOTE | 2024-11-27 13:47 | CM ---
Patient with Hx Sabas disease, vent, trach, PEG, neurogenic bladder requiring straight cath with Dx Sepsis due to UTI. Room air, vent HS, trach. Receiving IVF, IV meropenum. ST -speaking valve eval. Lozano. Per nurse; bedrest. Midline
pending.
Script received for IV Meropenum Q8h, via PICC/midline, end date 12/04/24.
Spoke with patient's parents; they agree to patient going home with home IV meropenum, and mother says the [facility] Private Duty nurses will be administering. Mother says Benny is only on service for the 16 hrs of private duty nurses, and there is
no PT/OT or ST services. Parents are aware that [facility] is closed today, that referral was sent and CM will follow up tomorrow. Patient/parents are hoping for d/c tomorrow. Patient usually transports home via his w/c to father's truck.
Parents confirm they have adequate trach & PEG feeding (Complete Adult Formula used prn) supplies at home.
Referral sent to [facility] for home IV Abx for d/c tomorrow.
Referral sent to [facility] for home IV Abx for d/c tomorrow.
Plan home with [facility] for home IV Infusion with resumption [facility] Private Duty Nurses, with parents.
[2024-11-27] MEDS: NON-FORMULARY ITEM 4 MG PO ×3 (15:30→20:52)
[2024-11-27] MEDS: LOVENOX 40 MG SC (17:34)
[2024-11-27] MEDS: TYLENOL 650 MG PO (21:19)
[2024-11-27] MEDS: MELATONIN 9 MG PO (21:32)
[2024-11-27] MEDS: REMERON 45 MG PO (22:17)
[2024-11-27] MEDS: DITROPAN 5 MG PO (22:18)
[2024-11-28 00:02] VITALS: BP 128/75
--- NOTE | 2024-11-28 01:11 | PTCARENOTE ---
Pt c/o scrotal discomfort. trace scrotal edema assessed by this RN. Lozano remains in place, draining yellow urine. Pt provided with wash cloth to elevate scrotum. TECHNICAL SALES ENGINEER on shift notified of assessment findings.
[2024-11-28 02:00] VITALS: BP 112/65
[2024-11-28] MEDS: LR 1000 IV (03:31)
[2024-11-28 04:00] VITALS: BP 119/74
[2024-11-28] MEDS: STERILE WATER FOR INJECTION 10 ML IV (05:06)
[2024-11-28] MEDS: MERREM 500 MG IV (05:07)
[2024-11-28 06:00] VITALS: BP 123/81
[2024-11-28 06:35] LABS: Hematocrit 32.6 % (39.0-52.0); Hemoglobin 10.2 g/dL (13.0-18.0); Mean Corp Hgb Conc. 31.3 g/dL (33.0-37.0); Mean Corpuscular Volume 93.4 fL (80.0-94.0); Nucleated Red Blood Cells % 0 % (-); Platelet Count 206 10^3/uL (130-400); Red Cell Dist. Width 14.5 % (11.5-14.5)
[2024-11-28 06:50] LABS: Blood Urea Nitrogen 8 mg/dl (9-20); Calcium 9.5 mg/dl (8.4-10.2); Carbon Dioxide 34 mmol/L (22-30); Chloride 104 mmol/L (98-107); Estimated Creatinine Clearance > 125 ml/min; Glucose 94 mg/dl (70-99); Potassium 4.7 mmol/L (3.5-5.1); Sodium 143 mmol/L (135-145); eGFR > 60.00
[2024-11-28] MEDS: NON-FORMULARY ITEM 1 MG PO ×3 (07:44→18:03)
--- NOTE | 2024-11-28 08:53 | PTCARENOTE ---
Pt on vent PS for nights. Still on vent pt asked for his nicotine Beatrice. . #7 [place] . Lozano cath in place to remain on dc. Pt needs midline for home ABT infusion, vat team notified. Poss dc today . Pt is AAOx3 cooperative with all care. Takes pills
whole withput incident.
[2024-11-28] MEDS: PROTONIX 40 MG PO (09:20)
[2024-11-28] MEDS: LIORESAL 7.5 MG PO ×2 (09:21→20:43)
[2024-11-28] MEDS: LAMICTAL 150 MG PO ×2 (09:22→20:41)
[2024-11-28] MEDS: MIRALAX 17 GRAMS PO (09:23)
[2024-11-28] MEDS: BUSPAR 10 MG PO ×2 (09:23→20:44)
--- NOTE | 2024-11-28 09:27 | W.PN.ID1 ---
Date of Service
Date of Service: November 28, 2024
Today's Communication
Meropenem 1g IV q8 through 12/11.
Place midline.
Assessment / Plan
# Pseudomonas (MDRO) complicated UTI
# Neurogenic bladder with recent traumatic urine self-cancerization
# Fever; resoved
# Leukocytosis resolved
# Sabas's syndrome/leukodystrophy
# Recent trach/PEG on nocturnal vent
- Blood cx's neg to date
- Ucx: Pseudomonas; sensitivities reviewed.
- Recommend meropenem 1g IV q8h through 12/11/24.
- Ordered midline.
- Home Infusion sheet submitted to shelter case manager.
- Contact precaution.
Chief Complaint
-: UTI
Subjective / Review of Systems
Wants to go home soon.
Vital Signs / Physical Exam
Vital Signs
Vital Signs
Temp Pulse Resp BP Pulse Ox
97.5 F 86 7 123/81 94
11/28/24 07:13 11/28/24 08:00 11/28/24 08:00 11/28/24 06:00 11/28/24 08:00
Physical Exam
Constitutional: Comfortable, Chronically Ill and Non-toxic
Oropharyngeal: Other (Trach in place)
Cardiovascular: S1/S2; Negative S3/S4
Pulmonary: Coarse and Non Labored
Gastrointestinal: Soft and Non Distended
Genito-Urinary: Lozano and Clear Urine
Extremities: Negative Edema or Erythema
Neurological: AO x 3
Objective Data
Lab Data
Lab Results
11/28/24 06:08
11/28/24 06:08
Estimated Creat Clear > 125 ml/min 11/28/24 06:08
Lactic Acid Cancelled 11/24/24 15:15
Total Bilirubin 0.7 mg/dl (0.2-1.3) 11/24/24 12:55
AST 22 U/L (17-59) 11/24/24 12:55
ALT 16 U/L (0-50) 11/24/24 12:55
Alkaline Phosphatase 86 U/L (38-126) 11/24/24 12:55
Most recent labs reviewed.
Micro Results:
11/24/24 12:55 Urine Culture - Final
Urine Pseudomonas aeruginosa
11/24/24 12:07 Blood Culture - Preliminary
Blood/Venous No Growth in 72 hours- Final report to follow
11/24/24 12:07 Blood Culture - Preliminary
Blood/Venous No Growth in 72 hours- Final report to follow
11/24/24 19:16 Influenza Types A & B (HEIDI) - Final
Nasal Swab Negative for Influenza A & B, NAAT
Negative results must be combined with clinical observations
and patient history.
Nucleic Acid Amplification test (NAAT)performed on the
[employer] NOW platform.
Urine Culture Preliminary 11/24/24
CC: 80,000 CFU/ML Pseudomonas aeruginosa *MDRO*
Isolation Precautions Required
Multi drug resistant organism isolated.
Suggest Infectious Disease consult.
Called to [phone] on 11/27/24 at 0837 by [employer]
Organism 1 Pseudomonas aeruginosa
1. Pseudomonas aeruginosa
M.I.C. RX
--------- ---
Aztreonam >16 R
Cefepime 16 I
Ceftazidime >16 R
Ciprofloxacin 2 R
Meropenem 2 S
Piperacillin/Tazobactam >64 R
Tobramycin <=2 S
11/24/24 CT a/p: The urinary bladder is mildly distended with areas of mild perivesicular stranding inferiorly suggestive of cystitis. Recommend correlation with urinalysis. The right kidney is absent with mild left-sided hydroureteronephrosis,
unchanged from prior. There is opacities within the bilateral lower lobes of the lungs with findings suspicious for left lower lobe pneumonia. Percutaneous gastrostomy tube is present within the stomach.
11/24/24 CXR: No acute cardiopulmonary process.
--- NOTE | 2024-11-28 11:43 | PTCARENOTE ---
Pt now getting midline inserted
--- NOTE | 2024-11-28 14:00 | CM ---
Patient with Hx Sabas disease, vent, trach, PEG, neurogenic bladder requiring straight cath with Dx Sepsis due to UTI. Room air, vent HS, trach. Midline IV placed today. Receiving IVF, IV meropenum.
New script received for IV Meropenum Q8h, via PICC/midline, end date 12/12/24
Spoke with patient's parents; they agree to patient going home with home IV meropenum, and mother agrees to teaching visit with [facility] nurse tomorrow at bedside. Provided update to parents that [facility] stated 100% coverage for home
infusion. Offered VN for ST as patient had session with ST here and mother declined, saying that session was just to address need for trach cap. Father confirmed Complete Adult Formula for PEG feeds is through a home care company.
Spoke with [facility]; faxed updated script and midline info. She will coordinate a teaching visit here tomorrow with patient's mother. [facility] will provide the nurse visits for the infusion and midline dressing changes in patient's
home. One of the parents needs to be taught home IV Abx administration, not the private duty nurse.
Plan home with [facility] for home IV Infusion with resumption [facility] Private Duty Nurses, with parents.
[2024-11-28] MEDS: STERILE WATER FOR INJECTION 20 ML IV ×2 (14:22→21:56)
[2024-11-28] MEDS: MERREM 1000 MG IV ×2 (14:22→21:57)
[2024-11-28] MEDS: ATIVAN 1 MG PO (14:25)
[2024-11-28] MEDS: LR IV (16:47)
[2024-11-28] MEDS: LOVENOX 40 MG SC (18:05)
--- NOTE | 2024-11-28 18:09 | W.PN.HOSP.TC ---
Today's Communication/Plan
-
request urology input of scrotal swelling and tenderness prior to dc
Await infusion teaching of mother
reviewed with father at bedside
Assessment / Plan
Assessment / Plan
Sepsis due to suspected complicated catheter associated UTI:
Urine cultures is back and intermediate resistant to cefepime. Changed IV antibiotics to IV meropenem.
Stop IV fluids as pt taking adequate oral intake
ID consult appreciated
1. Pseudomonas aeruginosa
M.I.C. RX
--------- ---
Aztreonam >16 R
Cefepime 16 I
Ceftazidime >16 R
Ciprofloxacin 2 R
Meropenem 2 S
Piperacillin/Tazobactam >64 R
Tobramycin <=2 S
As per JEANNE Sommer, infusion nurse will be available 11/29 to teach how to give IV abx
Chronic hypercapnic respiratory failure:
Status post trach
On chronic mechanical ventilation use at nighttime and as needed
Pulmonary consult appreciated
Trach care
Neurogenic bladder with chronic urinary retention/ History of solitary left kidney:
Managed with CIC and bladder botox--> Lozano catheter placed
Urology consult appreciated
No dysphagia:
On PEG in case he needs it as per family
Hyponatremia:
resolved
11/28 143
Pt complaining of scrotal tenderness and swelling
Ordered US. Discussed with Dr. Tran, who will evaluate pt once US completed, hopefully in the morning. ?Hydrocele, but would like evaluated prior to dc
Anemia:
Hemoglobin 10.2
holding stable
Seizure disorder:
Continue Lamictal
Depression anxiety:
Continue mirtazapine, sertraline, buspirone, and other benzos as needed
Other medical problems:
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
Leukodystrophy
Asthma
Constipation
GERD
Bilateral hip dysplasia
DVT prophylaxis:
Lovenox SQ
CODE STATUS:
Full code
Anticipated Discharge: Within 24 hours
Subjective/Interval History
-
Date of Service: November 28, 2024
Pt c/o swelling and pain in scrotum
Objective Data
-
Labs:
Laboratory Results
11/28/24
06:08
WBC 4.5 L
Hgb 10.2 L
Hct 32.6 L
Plt Count 206
Sodium 143
Potassium 4.7
Chloride 104
Carbon Dioxide 34 H
BUN 8 L
Creatinine 0.7
Glucose 94
Calcium 9.5
Vital Signs:
Vital Signs
Temp Pulse Resp BP Pulse Ox
99.3 F 89 20 123/81 93
11/28/24 15:00 11/28/24 16:00 11/28/24 16:00 11/28/24 06:00 11/28/24 16:00
I&O
11/27/24 11/28/24 11/29/24
06:59 06:59 06:59
Intake Total 3150 / 3150 480 / 480
Output Total 4000 / 4000 4900 / 4900 1200 / 1200
Balance -850 / -850 -4420 / -4420 -1200 / -1200
Review of Systems
-
History Source: Patient and Family (father at bedside)
Constitutional: Reports Fever (afebrile since 11/26 11:32)
Respiratory: Reports No Symptoms
Cardiac: Reports No Symptoms
Abdomen/GI: Reports No Symptoms
Genitourinary: Reports No Symptoms; Denies Dysuria
Physical Exam
-
General: Well Developed, Well Nourished and Appears Chronically Ill
HEENT: Normocephalic, Atraumatic and Tracheotomy
Respiratory: Clear to Auscultation; Negative Wheezes, Rales or Rhonchi
Cardiac: Regular Rhythm and S1/S2
GI: Soft, Nontender and Nondistended
Genito-urinary: Lozano and Other (scrotal swelling)
Musculoskeletal: No Clubbing, No Cyanosis and No Edema
Neuro: Awake and Alert
[2024-11-28] MEDS: REMERON 45 MG PO (20:42)
[2024-11-28] MEDS: TYLENOL 650 MG PO (20:44)
[2024-11-28] MEDS: DITROPAN 5 MG PO (20:44)
[2024-11-28] MEDS: MELATONIN 9 MG PO (20:45)
[2024-11-28 21:33] VITALS: BP 141/78
[2024-11-28 22:00] VITALS: BP 124/73
[2024-11-28] MEDS: ATIVAN 0.5 MG PO (22:21)
[2024-11-28] MEDS: FIORICET 1 TAB PO (22:21)
--- NOTE | 2024-11-28 22:45 | PTCARENOTE ---
Patient aao x3 since start of shift, affect pleasant, able to make needs known. C/o headache earlier, prn tylenol administered per orders. An hour later patient c/o headache, pain level unchanged, along with anxiety. RN contacted RALF, new orders
noted for Fiorcet and 1x Ativan dose. Medications administered per order. Patient refused repositioning at this time. Will continue to encourage. Lozano cath remains intact and draining clear, yellow urine. Right midline intact and patent, continues
with IV ABT via Right midline. Patient c/o right hand pain at IV site. IV assessed, flushing well, patent, no redness noted. IV removed per patient request r/to discomfort. Call mcpherson within reach, will continue to monitor patient closely.
[2024-11-29] VITALS (8 sets, daily range): BP systolic 96–120; BP diastolic 53–79
--- NOTE | 2024-11-29 05:25 | DOWNTIME ---
There was a [employer] Client Prop [employer]utter Downtime on 11/29/2024 from 0100 to 11/29/2024 at 0220. Downtime documentation of patient's care, including medication administrations, has been reconciled in the electronic record per guidelines. Refer to the
patient's paper chart under the miscellaneous tab to see printed paper medication records and downtime forms.
[2024-11-29] MEDS: STERILE WATER FOR INJECTION 20 ML IV ×2 (05:39→14:09)
[2024-11-29] MEDS: MERREM 1000 MG IV ×2 (05:39→14:09)
--- NOTE | 2024-11-29 08:57 | PN.CDI ---
CDI
- -
CDI:
Physician Documentation Request
Admit Date: 11/24/24 20:33
Dear Doctor Darron,
Patient admitted for UTI.
Nursing Documentation clinical panel wound care
11/26/24
22:23
Pressure injury appearance (Stage 1) [Present on admission Left Medial Heel] Soft on
palpation (
boggy)
Pressure injury stage [Present on admission Left Medial Heel] Stage 1
Size in centimeters (length/width/depth) [Present on admission Left Medial Heel] 3.5x3
Surrounding Skin - [Present on admission Left Medial Heel] Local erythema
Boggy
Physician documentation of the type and location of wounds is required for compliant documentation. Based on the above clinical findings and your assessment, please provide the following in your progress note:
1. Location of the ulcer/wound, including laterality.
2. Type (etiology) of ulcer/wound:
- Diabetic ulcer
- Arterial (ischemic) ulcer
- Traumatic wound
- Venous stasis ulcer
- Pressure (decubitus) ulcer
- Non-healing surgical wound
- Other
- Unable to determine
3. For a non-pressure ulcer, please indicate the depth/severity:
- Limited to the breakdown of skin
- With fat layer exposed
- With necrosis of muscle
- With necrosis of bone
- Other
- Unable to determine
4. If a pressure ulcer, please also include the stage* of the ulcer:
- Stage 1 - Skin intact, non-blanchable redness
- Stage 2 - Partial thickness loss of dermis, includes intact or open blister
- Stage 3 - Full thickness tissue not including bone, tendon or muscle
- Stage 4 - Full thickness tissue loss, including exposed bone, tendon or muscle
- Unstageable - Full thickness loss in which the base of the ulcer is covered by slough (yellow, bill, melvin, green or brown) and/or eschar (bill, brown or black) in the wound bed.
- Unable to determine
Use of terms such as suspected, likely, concern for, or probable (associated with a specific diagnosis that is being evaluated, monitored, or treated as if it exists) are acceptable and can be coded in the inpatient setting, when documented at the
time of discharge.
Thank you,
Alissa King RN, BSN
CDI Specialist
Available via [place] text
Please use your independent medical judgment in providing your response.
*Source: National Pressure Ulcer Advisory Panel (NPUAP)
--- NOTE | 2024-11-29 10:04 | PTCARENOTE ---
Patient AAOX3, off of CPAP, no complaints with breathing, denies SOB pulse 0x 94-95%. Lungs clear, patient is self suctioning. Lozano catheter draining clear light yellow urine. Patient Dad in room. Anxious for ultra sound results.
[2024-11-29] MEDS: PROTONIX 40 MG PO (10:07)
[2024-11-29] MEDS: BUSPAR 10 MG PO (10:07)
[2024-11-29] MEDS: MIRALAX 17 GRAMS PO (10:07)
[2024-11-29] MEDS: LIORESAL 7.5 MG PO (10:07)
[2024-11-29] MEDS: LAMICTAL 150 MG PO (10:07)
[2024-11-29] MEDS: TYLENOL 650 MG PO (10:11)
--- NOTE | 2024-11-29 11:12 | W.PN.ID1 ---
Date of Service
Date of Service: November 29, 2024
Today's Communication
Continue meropenem 1g IV q8h through 12/11/24.
Assessment / Plan
# Pseudomonas (MDRO) complicated UTI
# Neurogenic bladder with recent traumatic urine self-cancerization
# Possible scrotal cellulitis
# Fever; resolved
# Leukocytosis resolved
# Sabas's syndrome/leukodystrophy
# Recent trach/PEG on nocturnal vent
- Blood cx's neg to date
- Ucx: Pseudomonas; sensitivities reviewed.
- Continue meropenem 1g IV q8h through 12/11/24.
- midline in place.
- Infusion sheet submitted to skilled nursing case manager.
- Contact precaution.
Chief Complaint
-: UTI
Subjective / Review of Systems
Father at bedside.
Pt feeling better.
Vital Signs / Physical Exam
Vital Signs
Vital Signs
Temp Pulse Resp BP Pulse Ox
97.5 F 92 21 106/65 94
11/29/24 03:02 11/29/24 09:00 11/29/24 09:00 11/29/24 08:00 11/29/24 09:00
Physical Exam
Constitutional: No Acute Distress and Comfortable
Cardiovascular: Regular Rate and S1/S2
Pulmonary: Clear (anteriorly) and Other (trach in place)
Gastrointestinal: Soft, Non Tender, Non Distended and Normal Bowel Sounds
Genito-Urinary: Lozano and Clear Urine
Neurological: AO x 3
Objective Data
Lab Data
Lab Results
11/28/24 06:08
11/28/24 06:08
Estimated Creat Clear > 125 ml/min 11/28/24 06:08
Lactic Acid Cancelled 11/24/24 15:15
Total Bilirubin 0.7 mg/dl (0.2-1.3) 11/24/24 12:55
AST 22 U/L (17-59) 11/24/24 12:55
ALT 16 U/L (0-50) 11/24/24 12:55
Alkaline Phosphatase 86 U/L (38-126) 11/24/24 12:55
Most recent labs reviewed.
Micro Results:
11/24/24 12:07 Blood Culture - Preliminary
Blood/Venous No Growth in 4 days- Final report to follow
11/24/24 12:07 Blood Culture - Preliminary
Blood/Venous No Growth in 4 days- Final report to follow
11/24/24 12:55 Urine Culture - Final
Urine Pseudomonas aeruginosa
11/24/24 19:16 Influenza Types A & B (HEIDI) - Final
Nasal Swab Negative for Influenza A & B, NAAT
Negative results must be combined with clinical observations
and patient history.
Nucleic Acid Amplification test (NAAT)performed on the
[employer] platform.
Urine Culture Preliminary 11/24/24
CC: 80,000 CFU/ML Pseudomonas aeruginosa *MDRO*
Isolation Precautions Required
Multi drug resistant organism isolated.
Suggest Infectious Disease consult.
Called to [phone] on 11/27/24 at 0837 by Abakan
Organism 1 Pseudomonas aeruginosa
1. Pseudomonas aeruginosa
M.I.C. RX
--------- ---
Aztreonam >16 R
Cefepime 16 I
Ceftazidime >16 R
Ciprofloxacin 2 R
Meropenem 2 S
Piperacillin/Tazobactam >64 R
Tobramycin <=2 S
11/28/24 Scrotum US: Small left hydrocele. Scrotal wall thickening, nonspecific and may reflect cellulitis.
11/24/24 CT a/p: The urinary bladder is mildly distended with areas of mild perivesicular stranding inferiorly suggestive of cystitis. Recommend correlation with urinalysis. The right kidney is absent with mild left-sided hydroureteronephrosis,
unchanged from prior. There is opacities within the bilateral lower lobes of the lungs with findings suspicious for left lower lobe pneumonia. Percutaneous gastrostomy tube is present within the stomach.
11/24/24 CXR: No acute cardiopulmonary process.
[2024-11-29] MEDS: FLUSH (NSS) 2 FLUSH IV (14:10)
--- NOTE | 2024-11-29 14:21 | W.PN.HOSP.TC ---
Addendum entered and electronically signed by Abdoul Rob MD 12/01/24 16:42:
Scrotal swelling most likely is low grade Scrotal cellulitis
as per urology
Original Note:
Today's Communication/Plan
-
dc to home
Assessment / Plan
Assessment / Plan
Sepsis due to suspected complicated catheter associated UTI:
Urine cultures is back and intermediate resistant to cefepime. Changed IV antibiotics to IV meropenem.
Stop IV fluids as pt taking adequate oral intake
ID consult appreciated
1. Pseudomonas aeruginosa
M.I.C. RX
--------- ---
Aztreonam >16 R
Cefepime 16 I
Ceftazidime >16 R
Ciprofloxacin 2 R
Meropenem 2 S
Piperacillin/Tazobactam >64 R
Tobramycin <=2 S
infusion nurse instructed 11/30 to teach how to give IV abx
Chronic hypercapnic respiratory failure:
Status post trach
On chronic mechanical ventilation use at nighttime and as needed
Pulmonary consult appreciated
Trach care
Neurogenic bladder with chronic urinary retention/ History of solitary left kidney:
Managed with CIC and bladder botox--> Lozano catheter placed and urology would like this to continue
Discussed with Dr. Tran
Urology consult appreciated. Scrotal swelling, most likely low grade infection
Pressure injury stage [Present on admission Left Medial Heel] Stage1
No dysphagia:
On PEG in case he needs it as per family
Hyponatremia:
resolved
11/28 143
Anemia:
Hemoglobin 10.2
holding stable
Seizure disorder:
Continue Lamictal
Depression anxiety:
Continue mirtazapine, sertraline, buspirone, and other benzos as needed
Other medical problems:
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
Leukodystrophy
Asthma
Constipation
GERD
Bilateral hip dysplasia
DVT prophylaxis:
Lovenox SQ
CODE STATUS:
Full code
dc to home
see dictated note
More than 30 minutes spent in discharge including
Final examination of the patient
Summarizing hospital stay
Instructions for continuing care to all relevant caregivers
Preparation of discharge records, prescriptions, and referral forms
Total time spent (in minutes): 45
Anticipated Discharge: Today
Subjective/Interval History
-
Date of Service: November 29, 2024
Anxiously awaiting dc
Objective Data
-
Vital Signs:
Vital Signs
Temp Pulse Resp BP Pulse Ox
98.6 F 84 16 115/73 93
11/29/24 07:40 11/29/24 14:00 11/29/24 14:00 11/29/24 12:00 11/29/24 14:00
I&O
11/28/24 11/29/24 11/30/24
06:59 06:59 06:59
Intake Total 480 / 480 325 / 325
Output Total 4900 / 4900 3700 / 3700 550 / 550
Balance -4420 / -4420 -3700 / -3700 -225 / -225
Review of Systems
-
History Source: Patient and Family (mother at bedside)
Constitutional: Reports Fever (afebrile since 11/26 11:32)
Respiratory: Reports No Symptoms
Cardiac: Reports No Symptoms
Abdomen/GI: Reports No Symptoms
Genitourinary: Reports No Symptoms; Denies Dysuria
Physical Exam
-
General: Well Developed, Well Nourished and Appears Chronically Ill
HEENT: Normocephalic, Atraumatic and Tracheotomy
Respiratory: Clear to Auscultation; Negative Wheezes, Rales or Rhonchi
Cardiac: Regular Rhythm and S1/S2
GI: Soft, Nontender and Nondistended
Genito-urinary: Lozano and Other (scrotal swelling less pronounced today)
Musculoskeletal: No Clubbing, No Cyanosis and No Edema
Neuro: Awake and Alert
--- NOTE | 2024-11-29 15:05 | CM ---
Patient with Hx Sabas disease, vent, trach, PEG, neurogenic bladder requiring straight cath with Dx Sepsis due to UTI. Room air, vent HS, trach. Midline IV. Receiving IV meropenum. Lozano.
Met with patient and father; both agree with d/ home today. Father will provide transport home.
Met with [facility] Nurse (fax [phone]); per [facility] teaching visit completed with both parents, and parents did well with the teaching.
Plan home today with [facility] for home IV Infusion with resumption [facility] Duty Nurses, with parents.
--- NOTE | 2024-11-29 15:21 | PTCARENOTE ---
Patient being d/c to home with midline and bermudez catheter. Education and teaching provided to patient and his Mom.
--- NOTE | 2024-11-29 19:04 | W.DS.TRANS ---
DC Summary - [facility]
-
Discharge Instructions:
Discharge Diagnosis/Procedures Sepsis with CAUTI
Diet Regular
Activity With assistance
Driving Restrictions No driving
Bathing Restrictions None
Blood Work CBC, CMP on Mondays weekly, while on Meropenem,
results to Dr. Miladis Heath
Other Services VN
Instructions:
Stand-Alone Forms:
Changes to Home Medications: Yes
Discharge Medications:
DC Medications w/original date entered in [facility]
cholecalciferol (vitamin D3) 25 mcg (1,000 unit) tablet (Vitamin D3) 50 mcg PO DAILY Supplement 11/11/20
ferrous sulfate 325 mg (65 mg iron) tablet 325 mg PO DAILY Supplement 02/26/23
omeprazole 40 mg capsule,delayed release 40 mg PO DAILY GERD 02/26/23
vibegron 75 mg tablet (Gemtesa) 75 mg PO DAILY OVERACTIVE BLADDER 02/26/23
fluticasone propionate 50 mcg/actuation nasal spray,suspension 1 spray intranasal DAILY Congestion 09/06/24
lamotrigine 150 mg tablet (Lamictal) 150 mg PO BID Seizures 09/06/24
methenamine hippurate 1 gram tablet 1 g PO BID Infection 09/06/24
Held on 11/29/24. Instructions: Resume on 12/12/24.
mirtazapine 15 mg tablet 45 mg PO HS Sleep 09/06/24
nicotine (polacrilex) 2 mg buccal lozenge 2 mg buccal Q3HPRN PRN stop smoking 09/06/24
Cranberry (Ellura) 72 mg PO DAILY Supplement 11/24/24
Fiber Gummies 3 gummy PO DAILY Supplement 11/24/24
acetaminophen 325 mg tablet (Tylenol) 650 mg PO Q6HPRN PRN mild pain/fever 11/24/24
albuterol sulfate 90 mcg/actuation aerosol inhaler 2 puff inhalation R TID Lung/Breathing Issues 11/24/24
azelastine 137 mcg (0.1 %) nasal spray 2 spray intranasal BID Allergies 11/24/24
baclofen 5 mg tablet 7.5 mg PO BID Muscle Spasms 11/24/24
buspirone 10 mg tablet 10 mg PO BID Mental Health/Anxiety 11/24/24
carboxymethylcellulose sodium 0.5 % eye drops in a dropperette (Refresh Plus) 1 - 2 drp BOTH EYES DAILYPRN PRN dry eyes 11/24/24
docusate sodium 283 mg/5 mL enema (Enemeez) 283 mg GA DAILYPRN PRN constipation 11/24/24
lorazepam 1 mg tablet 1 mg PO [id number] PRN anxiety 11/24/24
melatonin 3 mg tablet 9 mg PO HS Sleep 11/24/24
oxybutynin chloride 5 mg tablet,extended release 24 hr 5 mg PO HS Urinary Issue 11/24/24
polyethylene glycol 3350 17 gram oral powder packet (Miralax) 17 g PO DAILY Constipation 11/24/24
sodium chloride 0.9 % for nebulization 0 ml inhalation R Q4HPRN PRN sob 11/24/24
therapeutic multivitamin 1 tab PO DAILY Supplement 11/24/24
meropenem 1 gram intravenous solution 1,000 mg IV Q8H #37 ea 11/29/24
water for injection, sterile 20 ml IV Q8H #0 mL 11/29/24
Home Medication Changes
Meropenem added
Pending Results: No
--- NOTE | 2024-12-01 12:07 | PN.CDI ---
CDI
- -
CDI:
Physician Documentation Request
Admit Date: 11/24/24 20:33
Dear Doctor Darron,
Patient admitted for UTI.
11/28 Scrotal ultrasound: 'Scrotal wall thickening, nonspecific and may reflect cellulitis'
Please indicate in your progress notes if you are in agreement that the above diagnosis is valid for this patient:
____ - Scrotal cellulitis is a valid diagnosis (Please include it in your progress notes)
____ - Scrotal cellulitis is not a valid diagnosis for this patient
____ - Scrotal cellulitis is not yet confirmed but remains a suspected condition
____ - Other
____ - Unable to determine
Use of terms such as suspected, likely, concern for, or probable are acceptable for a diagnosis that is being evaluated, monitored or treated as if it exists and can be coded in the inpatient setting, when documented at the time of discharge.
Thank you,
Alissa King RN, BSN
CDI Specialist
Available via [employer] text
Please use your independent medical judgment in providing your response.
== END 2024-11-29 17:05 | disposition home health service (06) | DRG 698 ==
LOC: IMU 20:33
PROVIDERS: Hospitalist; Nurse Practitioner Gerontology; Physician Assistant; Physician Assistant Medical; ADMITTING PHYSICIAN Internal Medicine; ATTENDING PHYSICIAN Internal Medicine; CONSULT PHYSICIAN Urology; EMERGENCY PHYSICIAN Emergency Medicine; FAMILY PHYSICIAN Internal Medicine; OTHER PHYSICIAN Internal Medicine; OTHER PHYSICIAN Internal Medicine Infectious Disease
PROC: 5A1935Z Respiratory Ventilation, Less than 24 Consecutive Hours (ICD-10-PCS; 2024-11-24)
DX: T83.518A Infection and inflammatory reaction due to other urinary catheter, initial encounter (principal); A41.52 Sepsis due to Pseudomonas; Q60.0 Renal agenesis, unilateral; J96.12 Chronic respiratory failure with hypercapnia; E87.1 Hypo-osmolality and hyponatremia; N13.6 Pyonephrosis; Z16.24 Resistance to multiple antibiotics; K21.9 Gastro-esophageal reflux disease without esophagitis; G40.909 Epilepsy, unspecified, not intractable, without status epilepticus; J45.909 Unspecified asthma, uncomplicated; G00-G99 Diseases of the nervous system; N31.9 Neuromuscular dysfunction of bladder, unspecified; F32.A Depression, unspecified; F41.9 Anxiety disorder, unspecified; L89.621 Pressure ulcer of left heel, stage 1; D64.9 Anemia, unspecified; N49.2 Inflammatory disorders of scrotum; K59.09 Other constipation; Y84.6 Urinary catheterization as the cause of abnormal reaction of the patient, or of later complication, without mention of misadventure at the time of the procedure; Y92.9 Unspecified place or not applicable; Y73.2 Prosthetic and other implants, materials and accessory gastroenterology and urology devices associated with adverse incidents; Z87.891 Personal history of nicotine dependence; Z87.440 Personal history of urinary (tract) infections; Z99.3 Dependence on wheelchair; Z11.52 Encounter for screening for COVID-19; Z93.0 Tracheostomy status; Q65.89 Other specified congenital deformities of hip; Z93.1 Gastrostomy status
CPT/HCPCS: 71045; 74176; 76870; 80048; 80053; 81003; 81015; 83605; 83930; 83935; 84300; 85025; 85027; 87040; 87077; 87086; 87186; 87502; 87811; 92523; 92610; 93005; 93976; 94002; 94003; 94640; 96361; 96374; 99285; J2185